=== PATIENT | female | born 1955 | race Caucasian/White ===

== ENCOUNTER 2016-07-18 10:21 | Inpatient (IN) | payer MEDICARE, OTHER ==
[2016-07-18] VITALS (12 sets, daily range): BP systolic 82–127; BP diastolic 47–85
[~2016-07-18] VITALS: Ht 134.6 cm; Wt 57.4 kg
[~2016-07-18 10:21] MED LIST: ACET-704 PO; ALEN70TA5 PO; AMIO200T2 PO; BUDE10.2 IH; CYCL10TA2 PO; DIAZEPAM10 MG PO; DIFL500T PO; FURO40TA4 PO; HYDR200T5 PO; LEVO112T4 PO; METH2.5T PO; OMEP40CA5 PO; OXYC1TAB7 PO; POTA20TA12 PO; PRED1TAB3 PO; PROAIR HFA8.5 GM IH; SULF500T7 PO; TIOT18CA IH
--- NOTE | 2016-07-18 10:44 | PHYS DOC ---
Past Medical History Past Medical History: A-Fib, Anxiety, Arthritis, Asthma, COPD, GERD, Hypothyroid Additional Past Medical Histor: Breast Cancer Past Surgical History: Cancer Surgery, Cholecystectomy, Hip Replacement, Knee Replacement Additional Past Surgical Histo: NECK SGRY Alcohol Use: None Drug Use: None Adult General Chief Complaint Chief Complaint: SHORTNESS OF BREATH HPI HPI Patient is a pleasant 60-year-old female with a history of COPD on chronic oxygen therapy at 2 L daily by nasal cannula was with history of hypertension, juvenile rheumatoid arthritis, chronic atrial fibrillation, hypothyroidism, depression, who lives at home alone but is monitored by her basis she presents with shortness of breath and worsening productive cough for last 2 weeks. She's been seen by her primary care doctor twice this week and placed on azithromycin 2 courses with minimal improvement of her symptoms. She's had increased work of breathing increased shortness of breath without chest pain or edema of the lower extremities last 2 weeks. Family denies fever but hasincreased congestion and productive cough. Patient is no change in medications she cannot sleep flat at night secondary to orthopnea as well as neck fusion. Patient denies any recent sick contacts Review of Systems Review of Systems Constitutional: Subjective fevers and chills increased work of breathing fatigue Eyes: Denies change in visual acuity, redness, or eye pain [] HENT: Noted congestion [] Respiratory: Increased productive cough and shortness of breath or difficulty or exercise tolerance Cardiovascular: No additional information not addressed in HPI [] GI: Denies abdominal pain, nausea, vomiting, bloody stools or diarrhea [] : Denies dysuria or hematuria [] Musculoskeletal: Denies back pain or joint pain [] Integument: Peripheral swelling noted contusions noted lower extremities Neurologic: Denies headache, focal weakness or sensory changes [] Endocrine: Denies polyuria or polydipsia [] Current Medications Current Medications Current Medications Medications (Trade) Dose Ordered Sig/Sarwat Start Time Stop Time Status Last Admin Dose Admin Albuterol Sulfate (Ventolin Neb Soln) 2.5 mg 1X ONCE 07/18/16 11:00 07/18/16 11:01 DC Albuterol/ Ipratropium (Duoneb) 3 ml 1X ONCE 07/18/16 11:00 07/18/16 11:01 DC Levofloxacin/ Dextrose 150 ml @ 100 mls/hr 1X ONCE 07/18/16 11:45 07/18/16 13:14 Methylprednisolone Sodium Succinate (Solu-Medrol 125mg Vial) 125 mg 1X ONCE 07/18/16 11:00 07/18/16 11:01 DC 07/18/16 10:46 125 MG Sodium Chloride (Normal Saline Flush) 10 ml QSHIFT PRN 07/18/16 10:45 07/18/16 10:48 10 ML Allergies Allergies Allergies Coded Allergies Type Severity Reaction Last Updated Verified Penicillins Allergy Intermediate Hives 12/04/13 Yes morphine Allergy Intermediate 12/04/13 Yes Physical Exam Physical Exam Vital signs noted hypoxic tachycardic, tachypneic patient is hypertensive. Constitutional: Patient is pale and cachectic in appearance she is on 2 L nasal cannula is satting at 8183% patient is sitting up in a recumbent position no obvious diaphoresis able to speak in 3-5 word sentences. HENT: Normocephalic, atraumatic, bilateral external ears normal, moist mucous membranes Eyes: PERRLA, EOMI, conjunctiva normal, no discharge. [] Neck: Normal range of motion, no tenderness, supple, no JVD no stridor noted Cardiovascular: Tachycardic irregular irregular rhythm Lungs & Thorax: wheezing in all lung daigle with coarse rhonchi at the left and right bases decreased left breath sounds in the right base. Abdomen: Bowel sounds normal, soft, no tenderness, no masses, no pulsatile masses. [] Skin: Pale and cool with delayed cap refill Extremities: No tenderness, no cyanosis, no clubbing, ROM intact, no edema. [] Neurologic: Alert and oriented X 3, normal motor function, normal sensory function, no focal deficits noted. [] Psychologic: Affect normal, judgement normal, mood normal. [] Current Patient Data Vital Signs Vital Signs Date Time Temp Pulse Resp B/P (MAP) Pulse Ox O2 Delivery O2 Flow Rate FiO2 07/18/16 11:30 92 20 103/53 (70) 95 BiPAP/CPAP 07/18/16 10:23 98.7 2.0 98.7 Lab Values Laboratory Tests Test 07/18/16 10:31 07/18/16 10:39 07/18/16 10:45 07/18/16 10:47 Urine Collection Type Unknown Urine Color Yellow Urine Clarity Clear Urine pH 5.5 Urine Specific Napoleon 1.010 Urine Protein Negative mg/dL (NEG-TRACE) Urine Glucose (UA) Negative mg/dL (NEG) Urine Ketones (Stick) Negative mg/dL (NEG) Urine Blood Negative (NEG) Urine Nitrite Negative (NEG) Urine Bilirubin Negative (NEG) Urine Urobilinogen Dipstick 0.2 mg/dL (0.2 mg/dL) Urine Leukocyte Esterase Negative (NEG) Urine RBC 0 /HPF (0-2) Urine WBC Occ /HPF (0-4) Urine Squamous Epithelial Cells Mod /LPF Urine Transitional Epithelial Cells Occ /LPF Urine Bacteria Few /HPF (0-FEW) Urine Hyaline Casts Occasional /HPF White Blood Count 7.4 x10^3/uL (4.0-11.0) Red Blood Count 2.65 x10^6/uL (3.50-5.40) L Hemoglobin 9.3 g/dL (12.0-15.5) L Hematocrit 28.8 % (36.0-47.0) L Mean Corpuscular Volume 109 fL (79-100) H Mean Corpuscular Hemoglobin 35 pg (25-35) Mean Corpuscular Hemoglobin Concent 32 g/dL (31-37) Red Cell Distribution Width 21.0 % (11.5-14.5) H Platelet Count 177 x10^3/uL (140-400) Neutrophils (%) (Auto) 77 % (31-73) H Lymphocytes (%) (Auto) 12 % (24-48) L Monocytes (%) (Auto) 9 % (0-9) Eosinophils (%) (Auto) 2 % (0-3) Basophils (%) (Auto) 1 % (0-3) Neutrophils # (Auto) 5.7 x10^3uL (1.8-7.7) Lymphocytes # (Auto) 0.9 x10^3/uL (1.0-4.8) L Monocytes # (Auto) 0.7 x10^3/uL (0.0-1.1) Eosinophils # (Auto) 0.1 x10^3/uL (0.0-0.7) Basophils # (Auto) 0.1 x10^3/uL (0.0-0.2) Platelet Estimate Pending Sodium Level 144 mmol/L (136-145) Potassium Level 2.6 mmol/L (3.5-5.1) *L Chloride Level 92 mmol/L (98-107) L Carbon Dioxide Level > 45 mmol/L (21-32) H Anion Gap (6-14) Blood Urea Nitrogen 12 mg/dL (7-20) Creatinine 0.8 mg/dL (0.6-1.0) Estimated GFR (Cockcroft-Gault) 72.9 BUN/Creatinine Ratio 15 (6-20) Glucose Level 149 mg/dL (70-99) H Lactic Acid Level 1.2 mmol/L (0.4-2.0) Calcium Level 9.7 mg/dL (8.5-10.1) Magnesium Level 1.3 mg/dL (1.8-2.4) L Total Bilirubin 0.5 mg/dL (0.2-1.0) Aspartate Amino Transferase (AST) 30 U/L (15-37) Alanine Aminotransferase (ALT) 19 U/L (14-59) Alkaline Phosphatase 76 U/L (46-116) Creatine Kinase 53 U/L (26-192) Creatine Kinase MB (Mass) 2.7 ng/mL (0.0-3.6) Creatine Kinase MB Relative Index % (0-4) Troponin I Quantitative 0.033 ng/mL (0.000-0.055) OU-Pht-M-Type Natriuretic Peptide 936 pg/mL (0-124) H Total Protein 6.9 g/dL (6.4-8.2) Albumin 3.1 g/dL (3.4-5.0) L Albumin/Globulin Ratio 0.8 (1.0-1.7) L Thyroid Stimulating Hormone (TSH) 0.868 uIU/mL (0.358-3.74) Influenza Type A Antigen Negative (NEGATIVE) Influenza Type B Antigen Negative (NEGATIVE) O2 Saturation 81 % (92-99) L Arterial Blood pH 7.28 (7.35-7.45) L Arterial Blood pCO2 at Patient Temp 119 mmHg (35-46) *H Arterial Blood pO2 at Patient Temp 53 mmHg (65-108) L Arterial Blood HCO3 55 mmol/L (21-28) H Arterial Blood Base Excess 24 mmol/L (-3-3) H FiO2 36 Laboratory Tests 07/18/16 10:39 Laboratory Tests 07/18/16 10:39 EKG EKG [] Radiology/Procedures Radiology/Procedures [] Signed PATIENT: BEATRIZ ESPARZA ACCOUNT: [id number] : 1955 LOCATION: ER AGE: 60 SEX: F EXAM STATUS: PRE ER ORD. PHYSICIAN: BETHANY BEASLEY MD REASON: cough sob PROCEDURE: PORTABLE CHEST 1V Indication: Cough and shortness of breath. Time of exam 10:45 AM Correlation is made with prior study 01/10/2014. The heart is enlarged. The lungs are clear. No infiltrate or failure is detected. No effusion or pneumothorax is seen. Severe degenerative changes involving bilateral shoulders are noted. Impression: Cardiomegaly. No acute cardiopulmonary process is detected. DICTATED and SIGNED BY: VINCENT LUONG MD DATE: 07/18/16 1049 CC: BETHANY BEASLEY MD; AMAIRANI GAUTHIER MD ~ Course & Med Decision Making Course & Med Decision Making Pertinent Labs and Imaging studies reviewed. (See chart for details) [] Agents vital signs are concerning she is tachycardic at 1 12/10/08 she is mildly hypoxic is biting into [place] skinless although she is mentating okay at 81%. Her blood pressure is within normal limits and her respiratory rate is increased greater than 20 she presents with possible COPD exacerbation with localized infiltrate pneumonia possibly multilobar or even congestive heart failure. She will be treated with a course of BiPAP with blood and oxygen via nasal cannula swash getting neb treatments and Solu-Medrol. We will get blood cultures and sputum cultures and lactic acid level fluids will be given in anticipation that the patient is on Sirs based on her vital signs possible sepsis base and a possible pneumonia. She'll ABG pH 7.28 PCO2 119 PaO2 52 bicarbonate 54.9 base excess is 24.2. His ABG demonstrates respiratory insufficiency with retained CO2 but commentation noted an increased bicarbonate levels. Given patient's respiratory distress patient been placed on BiPAP immediately is improved her symptoms as well as her breath sounds. Patient was given in-line nebs. Blood cultures been completed lactic acid is been drawn fluids are being given at this point in time. Patient likely represents an exacerbation of COPD and not congestive heart failure. EKG timed 10:30 AM 07/18/2016 demonstrates atrial fibrillation tachycardia [address] segment or T-wave changes consistent with acute coronary ischemia she has an old Q-wave in V1 and V2 which might represent an old anterior infarct. EKG will be compared to old EKGs in the past. At this juncture patiently Sirs criteria antibiotics were given to treat respiratory source of infection and she'll be admitted to the ICU. ` Patient has marked improvement on BiPAP machine repeat ABG is ordered because in approximately 30 minutes. Patient given a fluid bolus she's "antibodies to include IV Levaquin 750 mg family and I discussed need for admission as well as disposition to the ICU. Patient hospice at 11:45 AM for admission. She sats are now in the mid 90s upper 90s patient's color is improved from now romero color to a pinkish color she feels markedly better is able to communicate more rigorously. Patient admitted to Dr. HOLBROOK. Patient stable admitted to the ICU in guarded condition. Impression: COPD exacerbation, hypoxia, hype hypercarbia hypo-kalemia. Critical care time I spent approximately 45-50 minutes working and engaged directly in the patient care providing critical care evaluation this includes but not limited to time spent engaged in work directly related to the individual patients care. I spent time at the bedside, reviewing test results, discussing the case with staff, documenting the medical record and time spent with EMS discussing specific treatment issues when the patient presented and during his evaluation. Dragon Disclaimer Dragon Disclaimer This electronic medical record was generated, in whole or in part, using a voice recognition dictation system. Departure Departure Impression: Primary Impression: COPD (chronic obstructive pulmonary disease) Additional Impression: Acidosis Disposition: ADMITTED INPATIENT Admitting Physician: Yunior Ervin Condition: GUARDED Referrals: AMAIRANI GAUTHIER MD (PCP) Problem Qualifiers BETHANY BEASLEY MD July 18, 2016 10:44
[2016-07-18] MEDS ORDERED: 0.9 % SODIUM CHLORIDE 10 ML DISP.SYRIN. IV PRN (10:45)
[2016-07-18 10:52] LABS: BILIRUBIN,URINE NEGATIVE (NEG); GLUCOSE,URINE NEGATIVE (NEG); NITRITE,URINE NEGATIVE (NEG); PH,URINE 5.5; PROTEIN,URINE NEGATIVE (NEG-TRACE); UROBILINOGEN,URINE 0.2 mg/dL (0.2 mg/dL)
--- NOTE | 2016-07-18 10:52 | RAD ---
Indication: Cough and shortness of breath. Time of exam 10:45 AM Correlation is made with prior study 01/10/2014. The heart is enlarged. The lungs are clear. No infiltrate or failure is detected. No effusion or pneumothorax is seen. Severe degenerative changes involving bilateral shoulders are noted. Impression: Cardiomegaly. No acute cardiopulmonary process is detected.
[2016-07-18 10:55] LABS: BASO # 0.1 x10^3/uL (0.0-0.2); BASO % 1 % (0-3); EOS % 2 % (0-3); HEMATOCRIT 28.8 % (36.0-47.0); HEMOGLOBIN 9.3 g/dL (12.0-15.5); LYMPH # 0.9 x10^3/uL (1.0-4.8); LYMPH % 12 % (24-48); MEAN CORPUSCULAR HEMOGLOBIN 35 pg (25-35); MEAN CORPUSCULAR HGB CONC 32 g/dL (31-37); MEAN CORPUSCULAR VOLUME 109 fL (79-100); MONO % 9 % (0-9); NEUT % 77 % (31-73); PLATELET COUNT 177 x10^3/uL (140-400); RED BLOOD COUNT 2.65 x10^6/uL (3.50-5.40); WHITE BLOOD COUNT 7.4 x10^3/uL (4.0-11.0)
[2016-07-18] MEDS ORDERED: IPRATRPIUM/ALBUTEROL 0.5/2.5MG 3 ML NEBU. NEB ONE (11:00)
[2016-07-18] MEDS ORDERED: ALBUTEROL SULFATE 2.5 MG/3 ML NEBU. NEB ONE (11:00)
[2016-07-18] MEDS ORDERED: methylPREDNISolone SOD SUCC PF 125 MG/2 ML VIAL. IV ONE (11:00)
[2016-07-18] MEDS ORDERED: IV NORMAL SALINE 1000ML BAG 1,000 ML IV SCH (11:00)
[2016-07-18 11:01] LABS: BACTERIA,URINE FEW /HPF (0-FEW); RBC,URINE 0 /HPF (0-2); SQUAMOUS EPITHELIAL CELL,UR MOD /LPF; WBC,URINE OCC /HPF (0-4)
--- NOTE | 2016-07-18 11:02 | EKG ---
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
[2016-07-18 11:19] LABS: ALBUMIN 3.1 g/dL (3.4-5.0); ALBUMIN/GLOBULIN RATIO 0.8 (1.0-1.7); ALK PHOS 76 U/L (46-116); ALT (SGPT) 19 U/L (14-59); AST (SGOT) 30 U/L (15-37); BLOOD UREA NITROGEN 12 mg/dL (7-20); BUN/CREATININE RATIO 15 (6-20); CALCIUM 9.7 mg/dL (8.5-10.1); CHLORIDE 92 mmol/L (98-107); CREATINE KINASE 53 U/L (26-192); CREATININE 0.8 mg/dL (0.6-1.0); GFR 72.9; GLUCOSE 149 mg/dL (70-99); MAGNESIUM 1.3 mg/dL (1.8-2.4); SODIUM 144 mmol/L (136-145); TOTAL BILIRUBIN 0.5 mg/dL (0.2-1.0); TOTAL PROTEIN 6.9 g/dL (6.4-8.2)
[2016-07-18 11:24] LABS: OBC FLU VALID
[2016-07-18 11:25] LABS: CKMB MASS 2.7 ng/mL (0.0-3.6); CREATINE KINASE 53 U/L (26-192)
[2016-07-18 11:27] LABS: CARBON DIOXIDE > 45 mmol/L (21-32); POTASSIUM 2.6 mmol/L (3.5-5.1)
[2016-07-18 11:58] LABS: PH ABG 7.28 (7.35-7.45)
[2016-07-18 11:59] LABS: FIO2 ABG 36; HCO3 ABG 55 mmol/L (21-28); PCO2 ABG 119 mmHg (35-46); PO2 ABG 53 mmHg (65-108); SAT O2 ABG 81 % (92-99)
[2016-07-18 12:00] LABS: PLT ESTIMATE ADEQUATE (ADEQUATE)
[2016-07-18 12:01] LABS: ANISOCYTOSIS MOD; POLYCHROMASIA PRESENT
--- NOTE | 2016-07-18 12:16 | ACF ---
Admission Forms Criteria COPD Clinical Indications for Admission to Inpatient Care (Place 'X' for any and all applicable criteria): Admission is indicated for ANY ONE of the following (1)(2)(3): [X]I. Acute exacerbation by high-risk comorbidity (e.g., pneumonia, dysrhythmia, heart failure, pleural effusion, pneumothorax) or severe underlying COPD (e.g., steroid dependent) [X]II. Inpatient admission required rather than observation care (see Chronic Obstructive Pulmonary Disease: Observation Care) because of ANY ONE of the following: [ ]a) New or pre-existing signs or symptoms of COPD (eg, dyspnea or Tachypnea at rest or with minimal activity) that persist despite outpatient and observation care treatment [ ]b) New-onset hypoxemia (room air SaO2 less than 90%, PO2 less than 60 mm Hg (8.0 kPa)) that persists despite outpatient and observation care treatment [ ]c) Worsening of pre-existing hypoxemia (eg, new or increased requirement for supplemental oxygen to maintain oxygenation at baseline level) that persists despite outpatient and observation care treatment, with oxygen treatment needs performable only in acute inpatient setting [ ]d) Hypercarbia (PCO2 greater than 40 mm Hg (5.3 kPa))-induced respiratory acidosis (pH less than 7.35) that persists despite outpatient and observation care treatment [X]e) Supplemental oxygen or respiratory treatments for over 24 hours that are performable only in acute inpatient setting [ ]f) Chest tube placement with active evacuation (e.g., suction, drainage) (5) [ ]g) Other condition, treatment or monitoring requiring inpatient admission [ ]III. Planned invasive surgical or diagnostic procedures requiring acute- care hospitalization [ ]IV. Acute respiratory failure (e.g., uncompensated hypercarbia, severe hypoxemia) [ ]V. Severe comorbid condition (e.g., severe steroid myopathy, acute vertebral fracture) that has acutely worsened pulmonary function [ ]. Confusion state, lethargy, obtundation, stupor or coma Extended stay beyond goal length of stay may be needed for (31)(32): [ ]a ) Respiratory Failure. [ ]b) Severe or persisting hypoxemia or hypercarbia [ ]c) Severe or persistent dyspnea [ ]d) Comorbidities (e.g. chronic heart failure, atrial fibrillation with rapid response, pneumonia) [ ]e) Malnutrition The original [facility] content created by [facility] has been revised. The portions of the content which have been revised are identified through the use of italic text or in bold, and [facility] has neither reviewed nor approved the modified material. All other unmodified content is copyright [facility]. Please see references footnoted in the original [facility] edition 2016 Admission Criteria Met?: Yes ILANA VASQUEZ July 18, 2016 12:16
[2016-07-18 12:33] LABS: PH COOX 7.33 (7.35-7.45)
[2016-07-18 12:34] LABS: BASE EXCESS COOX 21 mmol/L (-3-3); FIO2 COOX 50; HCO3 COOX 50 mmol/L (21-28); PCO2 COOX 96 mmHg (35-46); PO2 COOX 77 mmHg (65-108); SAT O2 COOX 94 % (92-99)
--- NOTE | 2016-07-18 13:05 | PDOC ---
Provider Note Provider Note DICTATED ELO SANCHEZ MD July 18, 2016 13:05
[2016-07-18] MEDS: POTASSIUM CHLORIDE 10MEQ 100 ML IV SCH ×7 (13:30→23:48)
--- NOTE | 2016-07-18 14:12 | CONS ---
DATE OF CONSULTATION: 07/18/2016 ATTENDING PHYSICIAN: Yunior Ervin M.D. REASON FOR CONSULTATION: Respiratory failure. HISTORY OF PRESENT ILLNESS: The patient is a 60-year-old female who has a history of chronic respiratory failure on home oxygen 24 hours at 2 liters and history of chronic obstructive airway disease. She also has rheumatoid arthritis and has been on immunosuppressive agents. In addition, she takes chronic narcotics and benzodiazepines. She was brought in to the hospital by her daughter. The patient lives by herself. She was complaining of increasing shortness of breath and also some weakness and lethargy. The patient was noted to have a highly abnormal arterial blood gases on arrival, which showed a pH of 7.28, pCO2 of 119 and a pCO2 of 53. This was obtained on 36% FiO2. She was then placed on BiPAP and a subsequent blood gas showed a pH of 7.33, pCO2 of 96 and a pO2 of 77 on 50% FiO2. She is arousable. She is following commands. She wants to be full code as reported to me by her daughter. No headaches. No nausea or vomiting. No diarrhea. She did have some recent cold symptoms. Currently, the BiPAP settings have been adjusted by me. I have increased her iPAP and respiratory rate. Her chest x-ray was reviewed. No definite infiltrates or consolidation seen. PAST MEDICAL HISTORY: History of chronic respiratory failure; history of COPD, suspect severe; history of rheumatoid arthritis; history of immunosuppression, on chronic steroids and also on methotrexate; history of chronic narcotic use and benzo use; history of breast cancer. PAST SURGICAL HISTORY: Include cholecystectomy, hip replacement and knee replacement and neck surgery. ALLERGIES: PENICILLIN AND MORPHINE. REVIEW OF SYSTEMS: Twelve-point system obtained. Pertinent positives discussed in my history of present illness, otherwise noncontributory. All systems that were negative were reviewed as well. MEDICATIONS: Listed in the ER as well as home medications were reviewed as well. SOCIAL HISTORY: Smoked for 35 years before quitting 5 years ago. PHYSICAL EXAMINATION: GENERAL: She is arousable, on BiPAP. VITAL SIGNS: Blood pressure 105/49, afebrile, pulse ox 94% on current FiO2 50%. HEENT: Sclerae nonicteric. NECK: Supple. LUNGS: Diminished breath sounds. CARDIOVASCULAR: Regular rate. ABDOMEN: Soft, obese. EXTREMITIES: Bilateral pitting edema. LABORATORY DATA: Reviewed. ABGs as discussed in my history of present illness. Influenza screen is negative. Potassium 2.6, sodium 144, bicarbonate more than 45. BUN and creatinine are normal. Albumin is 3.1. White cell count 7.4, hemoglobin 9.3 and platelets are 177. IMPRESSION: 1. Acute on chronic hypoxic and hypercapnic respiratory failure. This has multifactorial etiologies and includes combination of acute bronchitis, hypoventilation from the use of benzodiazepines and narcotics and possible cor pulmonale. She does have lower extremity edema. 2. Underlying severe chronic obstructive pulmonary disease with chronic respiratory failure, now with acute respiratory failure. 3. History of rheumatoid arthritis, on chronic steroids and methotrexate. 4. Suspected acute bronchitis. 5. Chronic benzodiazepine and narcotic use. She uses oxycodone and diazepam regularly, which may have contributed to her encephalopathy. 6. Acute encephalopathy related to medication effect and also hypercapnia. RECOMMENDATIONS: 1. Continue with present BiPAP. ABGs show improvement. We will continue BiPAP until pH normalizes. I made necessary adjustments on the BiPAP settings. 2. Follow ABGs. 3. Agree with empiric antibiotic. 4. If blood pressure tolerates, we will do mild diuresis. 5. Minimize the use of home narcotics and benzodiazepines. 6. Continue her steroids and methotrexate for rheumatoid arthritis. 7. DVT prophylaxis. 8. Discussed with the ER physician and also the patient's daughter. The patient wants to remain a full code. Critical care time 38 minutes. ELO SANCHEZ MD DR: CORNELIUS/mariah JOB#: [id number] / [id number] YOANNA
--- NOTE | 2016-07-18 15:16 | PDOC1 ---
History and Physical Past Medical History Cardiovascular: AFIB, CHF, Hyperlipidemia Pulmonary: COPD, Pneumonia CENTRAL NERVOUS SYSTEM: Other GI: GERD Heme/Onc: B12 deficiency, Cancer Psych: Anxiety Rheumatologic: Rheumatoid arthritis Infectious disease: Other Renal/: Other Endocrine: Osteoporosis Past Surgical History Past Surgical History: Cholecystectomy, Mastectomy, Total hip replacement, Other Social History ALCOHOL: none Drugs: None Current Problem List Problem List Problems Medical Problems: (1) Acidosis Status: Acute (2) COPD (chronic obstructive pulmonary disease) Status: Acute Current Medications Current Medications Current Medications Medications (Trade) Dose Ordered Sig/Sarwat Start Time Stop Time Status Last Admin Dose Admin Albuterol Sulfate (Ventolin Neb Soln) 2.5 mg 1X ONCE 07/18/16 11:00 07/18/16 11:01 DC Albuterol/ Ipratropium (Duoneb) 3 ml RTQID 07/18/16 16:00 Enoxaparin Sodium (Lovenox 40mg Syringe) 40 mg Q24H 07/18/16 14:00 Levofloxacin/ Dextrose 100 ml @ 100 mls/hr Q24H 07/19/16 09:00 Methylprednisolone Sodium Succinate (Solu-Medrol 125mg Vial) 125 mg 1X ONCE 07/18/16 11:00 07/18/16 11:01 DC 07/18/16 10:46 125 MG Potassium Chloride 100 ml @ 100 mls/hr Q1H 07/18/16 16:00 07/18/16 17:59 Sodium Chloride (Normal Saline Flush) 10 ml QSHIFT PRN 07/18/16 10:45 07/18/16 10:48 10 ML Allergies Allergies Allergies Coded Allergies Type Severity Reaction Last Updated Verified Penicillins Allergy Intermediate Hives 12/04/13 Yes morphine Allergy Intermediate 12/04/13 Yes ROS Review of System sob, ams, not able to obtain as pt is on BIPAP. Physical Exam Physical Exam GEN.: No apparent distress. Alert, on BIPAP HEENT: Head is normocephalic, atraumatic NECK: Supple. NO jvd LUNGS: Clear to auscultation. anterior clear. HEART: RRR, S1, S2 present. Peripheral pulses intact ABDOMEN: Soft, nontender. Positive bowel sounds. EXTREMITIES: Without any cyanosis+2 edema NEUROLOGIC: Normal speech, normal tone PSYCHIATRIC: mild confusion SKIN: dry. Vitals Vitals Vital Signs Date Time Temp Pulse Resp B/P (MAP) Pulse Ox O2 Delivery O2 Flow Rate FiO2 07/18/16 14:00 84 24 93/55 (68) 95 BiPAP/CPAP 07/18/16 13:15 97.8 97.8 07/18/16 10:45 4.0 Labs Labs Laboratory Tests Test 07/18/16 10:31 07/18/16 10:39 07/18/16 10:45 07/18/16 10:47 Urine Collection Type Unknown Urine Color Yellow Urine Clarity Clear Urine pH 5.5 Urine Specific [place] 1.010 Urine Protein Negative mg/dL (NEG-TRACE) Urine Glucose (UA) Negative mg/dL (NEG) Urine Ketones (Stick) Negative mg/dL (NEG) Urine Blood Negative (NEG) Urine Nitrite Negative (NEG) Urine Bilirubin Negative (NEG) Urine Urobilinogen Dipstick 0.2 mg/dL (0.2 mg/dL) Urine Leukocyte Esterase Negative (NEG) Urine RBC 0 /HPF (0-2) Urine WBC Occ /HPF (0-4) Urine Squamous Epithelial Cells Mod /LPF Urine Transitional Epithelial Cells Occ /LPF Urine Bacteria Few /HPF (0-FEW) Urine Hyaline Casts Occasional /HPF O2 Saturation 94 % (92-99) 81 % (92-99) Arterial Blood pH 7.33 (7.35-7.45) 7.28 (7.35-7.45) Arterial Blood pCO2 at Patient Temp 96 mmHg (35-46) 119 mmHg (35-46) Arterial Blood pO2 at Patient Temp 77 mmHg (65-108) 53 mmHg (65-108) Arterial Blood HCO3 50 mmol/L (21-28) 55 mmol/L (21-28) Arterial Blood Base Excess 21 mmol/L (-3-3) 24 mmol/L (-3-3) FiO2 50 36 White Blood Count 7.4 x10^3/uL (4.0-11.0) Red Blood Count 2.65 x10^6/uL (3.50-5.40) Hemoglobin 9.3 g/dL (12.0-15.5) Hematocrit 28.8 % (36.0-47.0) Mean Corpuscular Volume 109 fL (79-100) Mean Corpuscular Hemoglobin 35 pg (25-35) Mean Corpuscular Hemoglobin Concent 32 g/dL (31-37) Red Cell Distribution Width 21.0 % (11.5-14.5) Platelet Count 177 x10^3/uL (140-400) Neutrophils (%) (Auto) 77 % (31-73) Lymphocytes (%) (Auto) 12 % (24-48) Monocytes (%) (Auto) 9 % (0-9) Eosinophils (%) (Auto) 2 % (0-3) Basophils (%) (Auto) 1 % (0-3) Neutrophils # (Auto) 5.7 x10^3uL (1.8-7.7) Lymphocytes # (Auto) 0.9 x10^3/uL (1.0-4.8) Monocytes # (Auto) 0.7 x10^3/uL (0.0-1.1) Eosinophils # (Auto) 0.1 x10^3/uL (0.0-0.7) Basophils # (Auto) 0.1 x10^3/uL (0.0-0.2) Platelet Estimate Adequate (ADEQUATE) Polychromasia Present Basophilic Stippling Present Anisocytosis Mod Macrocytosis Slight Sodium Level 144 mmol/L (136-145) Potassium Level 2.6 mmol/L (3.5-5.1) Chloride Level 92 mmol/L (98-107) Carbon Dioxide Level > 45 mmol/L (21-32) Anion Gap (6-14) Blood Urea Nitrogen 12 mg/dL (7-20) Creatinine 0.8 mg/dL (0.6-1.0) Estimated GFR (Cockcroft-Gault) 72.9 BUN/Creatinine Ratio 15 (6-20) Glucose Level 149 mg/dL (70-99) Lactic Acid Level 1.2 mmol/L (0.4-2.0) Calcium Level 9.7 mg/dL (8.5-10.1) Magnesium Level 1.3 mg/dL (1.8-2.4) Total Bilirubin 0.5 mg/dL (0.2-1.0) Aspartate Amino Transf (AST/SGOT) 30 U/L (15-37) Alanine Aminotransferase (ALT/SGPT) 19 U/L (14-59) Alkaline Phosphatase 76 U/L (46-116) Creatine Kinase 53 U/L (26-192) Creatine Kinase MB (Mass) 2.7 ng/mL (0.0-3.6) Creatine Kinase MB Relative Index % (0-4) Troponin I Quantitative 0.033 ng/mL (0.000-0.055) NU-Kmh-P-Type Natriuretic Peptide 936 pg/mL (0-124) Total Protein 6.9 g/dL (6.4-8.2) Albumin 3.1 g/dL (3.4-5.0) Albumin/Globulin Ratio 0.8 (1.0-1.7) Thyroid Stimulating Hormone (TSH) 0.868 uIU/mL (0.358-3.74) Influenza Type A Antigen Negative (NEGATIVE) Influenza Type B Antigen Negative (NEGATIVE) Laboratory Tests Test 07/18/16 10:31 07/18/16 10:39 07/18/16 10:45 07/18/16 10:47 Urine Collection Type Unknown Urine Color Yellow Urine Clarity Clear Urine pH 5.5 Urine Specific [place] 1.010 Urine Protein Negative mg/dL (NEG-TRACE) Urine Glucose (UA) Negative mg/dL (NEG) Urine Ketones (Stick) Negative mg/dL (NEG) Urine Blood Negative (NEG) Urine Nitrite Negative (NEG) Urine Bilirubin Negative (NEG) Urine Urobilinogen Dipstick 0.2 mg/dL (0.2 mg/dL) Urine Leukocyte Esterase Negative (NEG) Urine RBC 0 /HPF (0-2) Urine WBC Occ /HPF (0-4) Urine Squamous Epithelial Cells Mod /LPF Urine Transitional Epithelial Cells Occ /LPF Urine Bacteria Few /HPF (0-FEW) Urine Hyaline Casts Occasional /HPF O2 Saturation 94 % (92-99) 81 % (92-99) Arterial Blood pH 7.33 (7.35-7.45) 7.28 (7.35-7.45) Arterial Blood pCO2 at Patient Temp 96 mmHg (35-46) 119 mmHg (35-46) Arterial Blood pO2 at Patient Temp 77 mmHg (65-108) 53 mmHg (65-108) Arterial Blood HCO3 50 mmol/L (21-28) 55 mmol/L (21-28) Arterial Blood Base Excess 21 mmol/L (-3-3) 24 mmol/L (-3-3) FiO2 50 36 White Blood Count 7.4 x10^3/uL (4.0-11.0) Red Blood Count 2.65 x10^6/uL (3.50-5.40) Hemoglobin 9.3 g/dL (12.0-15.5) Hematocrit 28.8 % (36.0-47.0) Mean Corpuscular Volume 109 fL (79-100) Mean Corpuscular Hemoglobin 35 pg (25-35) Mean Corpuscular Hemoglobin Concent 32 g/dL (31-37) Red Cell Distribution Width 21.0 % (11.5-14.5) Platelet Count 177 x10^3/uL (140-400) Neutrophils (%) (Auto) 77 % (31-73) Lymphocytes (%) (Auto) 12 % (24-48) Monocytes (%) (Auto) 9 % (0-9) Eosinophils (%) (Auto) 2 % (0-3) Basophils (%) (Auto) 1 % (0-3) Neutrophils # (Auto) 5.7 x10^3uL (1.8-7.7) Lymphocytes # (Auto) 0.9 x10^3/uL (1.0-4.8) Monocytes # (Auto) 0.7 x10^3/uL (0.0-1.1) Eosinophils # (Auto) 0.1 x10^3/uL (0.0-0.7) Basophils # (Auto) 0.1 x10^3/uL (0.0-0.2) Platelet Estimate Adequate (ADEQUATE) Polychromasia Present Basophilic Stippling Present Anisocytosis Mod Macrocytosis Slight Sodium Level 144 mmol/L (136-145) Potassium Level 2.6 mmol/L (3.5-5.1) Chloride Level 92 mmol/L (98-107) Carbon Dioxide Level > 45 mmol/L (21-32) Anion Gap (6-14) Blood Urea Nitrogen 12 mg/dL (7-20) Creatinine 0.8 mg/dL (0.6-1.0) Estimated GFR (Cockcroft-Gault) 72.9 BUN/Creatinine Ratio 15 (6-20) Glucose Level 149 mg/dL (70-99) Lactic Acid Level 1.2 mmol/L (0.4-2.0) Calcium Level 9.7 mg/dL (8.5-10.1) Magnesium Level 1.3 mg/dL (1.8-2.4) Total Bilirubin 0.5 mg/dL (0.2-1.0) Aspartate Amino Transf (AST/SGOT) 30 U/L (15-37) Alanine Aminotransferase (ALT/SGPT) 19 U/L (14-59) Alkaline Phosphatase 76 U/L (46-116) Creatine Kinase 53 U/L (26-192) Creatine Kinase MB (Mass) 2.7 ng/mL (0.0-3.6) Creatine Kinase MB Relative Index % (0-4) Troponin I Quantitative 0.033 ng/mL (0.000-0.055) KW-Diy-U-Type Natriuretic Peptide 936 pg/mL (0-124) Total Protein 6.9 g/dL (6.4-8.2) Albumin 3.1 g/dL (3.4-5.0) Albumin/Globulin Ratio 0.8 (1.0-1.7) Thyroid Stimulating Hormone (TSH) 0.868 uIU/mL (0.358-3.74) Influenza Type A Antigen Negative (NEGATIVE) Influenza Type B Antigen Negative (NEGATIVE) VTE Prophylaxis Ordered VTE Prophylaxis Devices: No VTE Pharmacological Prophylaxi: No CATHERINE CABRAL MD July 18, 2016 15:16
[2016-07-18 15:21] LABS: HCO3 ABG 54 mmol/L (21-28); PO2 ABG 84 mmHg (65-108); SAT O2 ABG 95 % (92-99)
[2016-07-18] MEDS ORDERED: hydrALAZINE 20 MG/ML VIAL. IVP PRN (15:30)
[2016-07-18] MEDS: ENOXAPARIN 40 MG/0.4 ML SYRINGE. SQ SCH (15:52)
[2016-07-18] MEDS ORDERED: POTASSIUM CHLORIDE 10MEQ 100 ML IV SCH (16:00)
--- NOTE | 2016-07-18 16:46 | CARD ---
APPROVED REPORT EXAM: Two-dimensional and M-mode echocardiogram with Doppler and color Doppler. Other Information Quality : Average Rhythm : NSR INDICATION Dyspnea Peripheral Edema R/O cor pulmonale 2D DIMENSIONS RVDd2.2 (2.9-3.5cm)Left Atrium(2D)2.3 (1.6-4.0cm) IVSd1.0 (0.7-1.1cm)Aortic Root(2D)2.5 (2.0-3.7cm) LVDd4.5 (3.9-5.9cm)LVOT Diameter2.0 (1.8-2.4cm) PWd1.0 (0.7-1.1cm)LVDs3.3 (2.5-4.0cm) FS (%) 27.9 %SV50.6 ml LVEF(%)54.2 (>50%) Aortic Valve AoV Peak Galileo.156.9cm/sAoV VTI24.7cm AO Peak GR.9.8mmHgLVOT Peak Galileo.95.3cm/s AO Mean GR.6mmHgAVA (VMAX)1.84cm2 Mitral Valve MV E Eswrfzwj06.2cm/sMV DECEL [id number] MV A Njciynpz21.3cm/sMV OGN66qm E/A Ratio1.0MV A Mjwptiqy279ly MVA (PHT)4.05cm2 Tricuspid Valve TR P. Ddrrgwdu013yv/sRAP UYFFCDLD0jkLa TR Peak Gr.50oyKiKROR60isFs Pulmonary Vein S1 Azeifksm22.0cm/sD2 Ahkwruvy76.8cm/s PVa [id number] LEFT VENTRICLE The left ventricle is normal size. There is normal left ventricular wall thickness. Left ventricle sy stolic function is normal. The Ejection Fraction is 50-55%. There is normal LV segmental wall motion. The left ventricular diastolic function and filling is normal for age. RIGHT VENTRICLE The right ventricle is normal size. The right ventricular systolic function is normal. ATRIA The left atrium size is normal. The right atrium size is normal. The interatrial septum is intact wit h no evidence for an atrial septal defect or patent foramen ovale as noted on 2-D or Doppler imaging. AORTIC VALVE The aortic valve is normal in structure and function. The aortic valve is trileaflet. Doppler and Col or Flow revealed no significant aortic regurgitation. There is no significant aortic valvular stenosi s. MITRAL VALVE The mitral valve leaflets are thickened. There is no mitral valve stenosis. Doppler and Color Flow re vealed no mitral valve regurgitation noted. TRICUSPID VALVE The tricuspid valve is normal in structure and function. Doppler and Color Flow revealed trace tricus pid regurgitation. The PA pressure was estimated at 14 mmHg. There is no tricuspid valve stenosis. PULMONIC VALVE The pulmonic valve is not well visualized. Doppler and Color Flow revealed no pulmonic valvular regur gitation. There is no pulmonic valvular stenosis. GREAT VESSELS The aortic root is normal in size. Normal pulmonary venous flow (Doppler). The IVC is normal in size and collapses >50% with inspiration. PERICARDIAL EFFUSION There is no evidence of significant pericardial effusion. Critical Notification Critical Value: No <Conclusion> Left ventricle systolic function is normal. The Ejection Fraction is 50-55%. There is normal LV segmental wall motion.
[2016-07-18] MEDS: IPRATRPIUM/ALBUTEROL 0.5/2.5MG 3 ML NEBU. NEB SCH ×2 (17:04→19:22)
[2016-07-18 18:42] LABS: HCO3 ABG 47 mmol/L (21-28); PH ABG 7.39 (7.35-7.45); PO2 ABG 57 mmHg (65-108); SAT O2 ABG 88 % (92-99)
[2016-07-18 18:45] LABS: FIO2 ABG 35; PCO2 ABG 78 mmHg (35-46)
[2016-07-18 18:46] LABS: PCO2 ABG 113 mmHg (35-46)
[2016-07-18 18:47] LABS: FIO2 ABG 50
--- NOTE | 2016-07-18 19:10 | HP ---
ADMIT DATE: 07/18/2016 CHIEF COMPLAINT: Respiratory failure, short of breath. HISTORY OF PRESENT ILLNESS: A 60-year-old female patient, who was brought to the hospital by her daughter for shortness of breath, altered mental status, weakness, and lethargy. Reportedly, the patient was on home oxygen 2 liters for chronic respiratory failure and COPD, and at the time of her arrival, the patient's initial ABG showed pCO2 of 96 and pH is 7.33 and she was requiring BiPAP. Also, she was on narcotics and benzodiazepines at home, which could be contributing to her altered mental status and worsening respiratory status. At the time of my examination, the patient was seen in the Critical Care Unit and symptoms are getting better. She is alert, able to answer questions; however, still on BiPAP. PAST MEDICAL HISTORY: COPD, chronic respiratory failure, rheumatoid arthritis, immunosuppression, chronic steroids, methotrexate, narcotic, and benzodiazepine use, questionable AFib, and questionable CHF. PAST SURGICAL HISTORY: Cholecystectomy, mastectomy. PERSONAL HISTORY: No active smoking, no alcohol, and no substance abuse. REVIEW OF SYSTEMS: Not able to completely obtain due to her acute illness. Please see my HPI. PHYSICAL EXAMINATION: Please see my electronic H and P. LABORATORY DATA: ABGs: pH is 7.3, pCO2 of 96, pO2 is 77, base excess 21, FiO2 50%. Influenza A and B are negative. CBC: WBC is 7.4, hemoglobin is 9.3, and MCV is 109. Chemistry: Sodium 144, potassium 2.6, carbon dioxide 95, creatinine 0.8, and troponin 0.33. IMAGING STUDIES: Chest x-ray: Cardiomegaly. ASSESSMENT AND PLAN: 1. Skqme-me-eobzpjk hypoxemic-hypercapnic respiratory failure. 2. Chronic obstructive pulmonary disease, chronic. 3. History of rheumatoid arthritis with questionable atrial fibrillation. 4. Altered mental status, likely due to medication-related - narcotics and benzodiazepine. 5. Respiratory failure. PLAN: 1. The patient has been admitted to critical care unit and currently, she is on BiPAP and clinically improving. Repeat ABGs, and Pulmonology has been consulted for further recommendations. Already seen in the ER. 2. Limit narcotics and benzodiazepines. 3. Home medication list reviewed. Discussed with the family member/pharmacy. At this moment, I do not have the medications list. 4. Continue current antibiotics, Levaquin. 5. Potassium has been replaced. 6. Periodic nebulizations or DuoNebs. 7. Echocardiogram has been ordered for ruling out cor pulmonale. 8. If the patient's symptoms improve, we will move ahead to step-down unit in the a.m. CATHERINE CABRAL MD DR: MEY/mariah JOB#: [id number] / [id number] [place]
[2016-07-18] MEDS ORDERED: oxyCODONE/APAP 5/325 1 TAB TABLET PO ONE (21:00)
[2016-07-18] MEDS: HYDROXYCHLOROQUINE 200 MG TABLET PO SCH (21:22)
[2016-07-18] MEDS ORDERED: LEFLUNOMIDE20 MG PO (22:27)
[2016-07-18] MEDS ORDERED: VENTOLIN HFA18 GM INH (22:27)
[2016-07-18] MEDS ORDERED: CETI10TA22 PO (22:27)
[2016-07-18] MEDS ORDERED: FOLI1TAB16 PO (22:27)
[2016-07-18] MEDS ORDERED: FURO-68 PO (22:27)
[2016-07-18] MEDS ORDERED: METO25TA9 PO (22:27)
[2016-07-18] MEDS ORDERED: PROM6.25 PO (22:27)
[2016-07-18] MEDS ORDERED: FLUT16SP NS (22:27)
[2016-07-18] MEDS ORDERED: ATOR20TA PO (22:27)
[2016-07-19] VITALS (21 sets, daily range): BP systolic 74–183; BP diastolic 44–74
[2016-07-19] MEDS: POTASSIUM CHLORIDE 10MEQ 100 ML IV SCH (01:32)
[2016-07-19] MEDS: LEVOTHYROXINE 112 MCG TABLET PO SCH (06:44)
[2016-07-19] MEDS ORDERED: ALBUTEROL SULFATE 2.5 MG/3 ML NEBU. NEB SCH (08:00)
[2016-07-19] MEDS: IPRATRPIUM/ALBUTEROL 0.5/2.5MG 3 ML NEBU. NEB SCH ×4 (08:15→20:30)
[2016-07-19 08:20] LABS: HCO3 ABG 39 mmol/L (21-28); PH ABG 7.33 (7.35-7.45); PO2 ABG 73 mmHg (65-108); SAT O2 ABG 92 % (92-99)
[2016-07-19 08:23] LABS: FIO2 ABG 35; PCO2 ABG 76 mmHg (35-46)
[2016-07-19] MEDS: FLUTICASONE 50MCG/NASAL SPRAY 16GM BOTTLE. NS SCH (09:00)
[2016-07-19] MEDS ORDERED: NON FORMULARY ITEM (Albuterol Sulfate (Ventolin Hfa Inhaler) 2 PUFF) INH SCH (09:00)
[2016-07-19] MEDS: METOPROLOL SUCC 24HR ER 25 MG TAB.ER.24H. PO SCH (09:00)
[2016-07-19] MEDS: LEFLUNOMIDE 10 MG TABLET. PO SCH (09:28)
[2016-07-19] MEDS: sulfaSALAzine 500 MG TABLET PO SCH ×2 (09:28→21:30)
[2016-07-19] MEDS: SALSALATE 750 MG PO SCH ×2 (09:28→21:30)
[2016-07-19] MEDS: FUROSEMIDE 40 MG TABLET. PO SCH (09:28)
[2016-07-19] MEDS: FOLIC ACID 1 MG TABLET. PO SCH (09:29)
[2016-07-19] MEDS: HYDROXYCHLOROQUINE 200 MG TABLET PO SCH ×2 (09:29→21:30)
[2016-07-19] MEDS: CETIRIZINE HCL 10 MG TABLET. PO SCH (09:29)
[2016-07-19] MEDS: predniSONE 1 MG TABLET PO SCH ×3 (09:43→21:30)
[2016-07-19 10:11] LABS: BASO % 0 % (0-3); EOS % 0 % (0-3); HEMATOCRIT 28.8 % (36.0-47.0); HEMOGLOBIN 9.2 g/dL (12.0-15.5); LYMPH # 1.8 x10^3/uL (1.0-4.8); LYMPH % 20 % (24-48); MEAN CORPUSCULAR HEMOGLOBIN 36 pg (25-35); MEAN CORPUSCULAR HGB CONC 32 g/dL (31-37); MONO % 11 % (0-9); NEUT % 70 % (31-73); PLATELET COUNT 173 x10^3/uL (140-400); RED BLOOD COUNT 2.59 x10^6/uL (3.50-5.40); RED CELL DISTRIBUTION WIDTH 22.1 % (11.5-14.5)
[2016-07-19 10:12] LABS: CALCIUM 9.7 mg/dL (8.5-10.1); CREATININE 0.9 mg/dL (0.6-1.0); GFR 63.7
[2016-07-19 10:16] LABS: MEAN CORPUSCULAR VOLUME 109 fL (79-100)
--- NOTE | 2016-07-19 10:21 | PDOC ---
PULMONARY PROGRESS NOTES Subjective on BIPAP awake Vitals Vital Signs Date Time Temp Pulse Resp B/P (MAP) Pulse Ox O2 Delivery O2 Flow Rate FiO2 07/19/16 09:09 97 103/60 (74) 91 BiPAP/CPAP 07/19/16 08:00 98.3 25 98.3 07/18/16 10:45 4.0 General: Alert, No acute distress Lungs: Other (decrease bs) Cardiovascular: S1 Abdomen: Soft Neuro Exam: Alert Extremities: Other (trace edema) Skin: Warm Labs Laboratory Tests Test 07/18/16 10:31 07/18/16 10:39 07/18/16 10:45 07/18/16 10:47 Urine Collection Type Unknown Urine Color Yellow Urine Clarity Clear Urine pH 5.5 Urine Specific [place] 1.010 Urine Protein Negative mg/dL (NEG-TRACE) Urine Glucose (UA) Negative mg/dL (NEG) Urine Ketones (Stick) Negative mg/dL (NEG) Urine Blood Negative (NEG) Urine Nitrite Negative (NEG) Urine Bilirubin Negative (NEG) Urine Urobilinogen Dipstick 0.2 mg/dL (0.2 mg/dL) Urine Leukocyte Esterase Negative (NEG) Urine RBC 0 /HPF (0-2) Urine WBC Occ /HPF (0-4) Urine Squamous Epithelial Cells Mod /LPF Urine Transitional Epithelial Cells Occ /LPF Urine Bacteria Few /HPF (0-FEW) Urine Hyaline Casts Occasional /HPF O2 Saturation 94 % (92-99) 81 % (92-99) Arterial Blood pH 7.33 (7.35-7.45) 7.28 (7.35-7.45) Arterial Blood pCO2 at Patient Temp 96 mmHg (35-46) 119 mmHg (35-46) Arterial Blood pO2 at Patient Temp 77 mmHg (65-108) 53 mmHg (65-108) Arterial Blood HCO3 50 mmol/L (21-28) 55 mmol/L (21-28) Arterial Blood Base Excess 21 mmol/L (-3-3) 24 mmol/L (-3-3) FiO2 50 36 White Blood Count 7.4 x10^3/uL (4.0-11.0) Red Blood Count 2.65 x10^6/uL (3.50-5.40) Hemoglobin 9.3 g/dL (12.0-15.5) Hematocrit 28.8 % (36.0-47.0) Mean Corpuscular Volume 109 fL (79-100) Mean Corpuscular Hemoglobin 35 pg (25-35) Mean Corpuscular Hemoglobin Concent 32 g/dL (31-37) Red Cell Distribution Width 21.0 % (11.5-14.5) Platelet Count 177 x10^3/uL (140-400) Neutrophils (%) (Auto) 77 % (31-73) Lymphocytes (%) (Auto) 12 % (24-48) Monocytes (%) (Auto) 9 % (0-9) Eosinophils (%) (Auto) 2 % (0-3) Basophils (%) (Auto) 1 % (0-3) Neutrophils # (Auto) 5.7 x10^3uL (1.8-7.7) Lymphocytes # (Auto) 0.9 x10^3/uL (1.0-4.8) Monocytes # (Auto) 0.7 x10^3/uL (0.0-1.1) Eosinophils # (Auto) 0.1 x10^3/uL (0.0-0.7) Basophils # (Auto) 0.1 x10^3/uL (0.0-0.2) Platelet Estimate Adequate (ADEQUATE) Polychromasia Present Basophilic Stippling Present Anisocytosis Mod Macrocytosis Slight Sodium Level 144 mmol/L (136-145) Potassium Level 2.6 mmol/L (3.5-5.1) Chloride Level 92 mmol/L (98-107) Carbon Dioxide Level > 45 mmol/L (21-32) Anion Gap (6-14) Blood Urea Nitrogen 12 mg/dL (7-20) Creatinine 0.8 mg/dL (0.6-1.0) Estimated GFR (Cockcroft-Gault) 72.9 BUN/Creatinine Ratio 15 (6-20) Glucose Level 149 mg/dL (70-99) Lactic Acid Level 1.2 mmol/L (0.4-2.0) Calcium Level 9.7 mg/dL (8.5-10.1) Magnesium Level 1.3 mg/dL (1.8-2.4) Total Bilirubin 0.5 mg/dL (0.2-1.0) Aspartate Amino Transf (AST/SGOT) 30 U/L (15-37) Alanine Aminotransferase (ALT/SGPT) 19 U/L (14-59) Alkaline Phosphatase 76 U/L (46-116) Creatine Kinase 53 U/L (26-192) Creatine Kinase MB (Mass) 2.7 ng/mL (0.0-3.6) Creatine Kinase MB Relative Index % (0-4) Troponin I Quantitative 0.033 ng/mL (0.000-0.055) EG-Lcr-L-Type Natriuretic Peptide 936 pg/mL (0-124) Total Protein 6.9 g/dL (6.4-8.2) Albumin 3.1 g/dL (3.4-5.0) Albumin/Globulin Ratio 0.8 (1.0-1.7) Thyroid Stimulating Hormone (TSH) 0.868 uIU/mL (0.358-3.74) Influenza Type A Antigen Negative (NEGATIVE) Influenza Type B Antigen Negative (NEGATIVE) Test 07/18/16 14:55 07/18/16 18:25 07/19/16 08:00 07/19/16 09:50 O2 Saturation 95 % (92-99) 88 % (92-99) 92 % (92-99) Arterial Blood pH 7.30 (7.35-7.45) 7.39 (7.35-7.45) 7.33 (7.35-7.45) Arterial Blood pCO2 at Patient Temp 113 mmHg (35-46) 78 mmHg (35-46) 76 mmHg (35-46) Arterial Blood pO2 at Patient Temp 84 mmHg (65-108) 57 mmHg (65-108) 73 mmHg (65-108) Arterial Blood HCO3 54 mmol/L (21-28) 47 mmol/L (21-28) 39 mmol/L (21-28) Arterial Blood Base Excess 24 mmol/L (-3-3) 19 mmol/L (-3-3) 11 mmol/L (-3-3) FiO2 50 35 35 White Blood Count 9.0 x10^3/uL (4.0-11.0) Red Blood Count 2.59 x10^6/uL (3.50-5.40) Hemoglobin 9.2 g/dL (12.0-15.5) Hematocrit 28.8 % (36.0-47.0) Mean Corpuscular Volume 109 fL (79-100) Mean Corpuscular Hemoglobin 36 pg (25-35) Mean Corpuscular Hemoglobin Concent 32 g/dL (31-37) Red Cell Distribution Width 22.1 % (11.5-14.5) Platelet Count 173 x10^3/uL (140-400) Neutrophils (%) (Auto) 70 % (31-73) Lymphocytes (%) (Auto) 20 % (24-48) Monocytes (%) (Auto) 11 % (0-9) Eosinophils (%) (Auto) 0 % (0-3) Basophils (%) (Auto) 0 % (0-3) Neutrophils # (Auto) 6.2 x10^3uL (1.8-7.7) Lymphocytes # (Auto) 1.8 x10^3/uL (1.0-4.8) Monocytes # (Auto) 0.9 x10^3/uL (0.0-1.1) Eosinophils # (Auto) 0.0 x10^3/uL (0.0-0.7) Basophils # (Auto) 0.0 x10^3/uL (0.0-0.2) Sodium Level 141 mmol/L (136-145) Potassium Level 4.0 mmol/L (3.5-5.1) Chloride Level 95 mmol/L (98-107) Carbon Dioxide Level 39 mmol/L (21-32) Anion Gap 7 (6-14) Blood Urea Nitrogen 17 mg/dL (7-20) Creatinine 0.9 mg/dL (0.6-1.0) Estimated GFR (Cockcroft-Gault) 63.7 Glucose Level 53 mg/dL (70-99) Calcium Level 9.7 mg/dL (8.5-10.1) Laboratory Tests Test 07/18/16 10:31 07/18/16 10:39 07/18/16 10:45 07/18/16 10:47 Urine Collection Type Unknown Urine Color Yellow Urine Clarity Clear Urine pH 5.5 Urine Specific [place] 1.010 Urine Protein Negative mg/dL (NEG-TRACE) Urine Glucose (UA) Negative mg/dL (NEG) Urine Ketones (Stick) Negative mg/dL (NEG) Urine Blood Negative (NEG) Urine Nitrite Negative (NEG) Urine Bilirubin Negative (NEG) Urine Urobilinogen Dipstick 0.2 mg/dL (0.2 mg/dL) Urine Leukocyte Esterase Negative (NEG) Urine RBC 0 /HPF (0-2) Urine WBC Occ /HPF (0-4) Urine Squamous Epithelial Cells Mod /LPF Urine Transitional Epithelial Cells Occ /LPF Urine Bacteria Few /HPF (0-FEW) Urine Hyaline Casts Occasional /HPF O2 Saturation 94 % (92-99) 81 % (92-99) Arterial Blood pH 7.33 (7.35-7.45) 7.28 (7.35-7.45) Arterial Blood pCO2 at Patient Temp 96 mmHg (35-46) 119 mmHg (35-46) Arterial Blood pO2 at Patient Temp 77 mmHg (65-108) 53 mmHg (65-108) Arterial Blood HCO3 50 mmol/L (21-28) 55 mmol/L (21-28) Arterial Blood Base Excess 21 mmol/L (-3-3) 24 mmol/L (-3-3) FiO2 50 36 White Blood Count 7.4 x10^3/uL (4.0-11.0) Red Blood Count 2.65 x10^6/uL (3.50-5.40) Hemoglobin 9.3 g/dL (12.0-15.5) Hematocrit 28.8 % (36.0-47.0) Mean Corpuscular Volume 109 fL (79-100) Mean Corpuscular Hemoglobin 35 pg (25-35) Mean Corpuscular Hemoglobin Concent 32 g/dL (31-37) Red Cell Distribution Width 21.0 % (11.5-14.5) Platelet Count 177 x10^3/uL (140-400) Neutrophils (%) (Auto) 77 % (31-73) Lymphocytes (%) (Auto) 12 % (24-48) Monocytes (%) (Auto) 9 % (0-9) Eosinophils (%) (Auto) 2 % (0-3) Basophils (%) (Auto) 1 % (0-3) Neutrophils # (Auto) 5.7 x10^3uL (1.8-7.7) Lymphocytes # (Auto) 0.9 x10^3/uL (1.0-4.8) Monocytes # (Auto) 0.7 x10^3/uL (0.0-1.1) Eosinophils # (Auto) 0.1 x10^3/uL (0.0-0.7) Basophils # (Auto) 0.1 x10^3/uL (0.0-0.2) Platelet Estimate Adequate (ADEQUATE) Polychromasia Present Basophilic Stippling Present Anisocytosis Mod Macrocytosis Slight Sodium Level 144 mmol/L (136-145) Potassium Level 2.6 mmol/L (3.5-5.1) Chloride Level 92 mmol/L (98-107) Carbon Dioxide Level > 45 mmol/L (21-32) Anion Gap (6-14) Blood Urea Nitrogen 12 mg/dL (7-20) Creatinine 0.8 mg/dL (0.6-1.0) Estimated GFR (Cockcroft-Gault) 72.9 BUN/Creatinine Ratio 15 (6-20) Glucose Level 149 mg/dL (70-99) Lactic Acid Level 1.2 mmol/L (0.4-2.0) Calcium Level 9.7 mg/dL (8.5-10.1) Magnesium Level 1.3 mg/dL (1.8-2.4) Total Bilirubin 0.5 mg/dL (0.2-1.0) Aspartate Amino Transf (AST/SGOT) 30 U/L (15-37) Alanine Aminotransferase (ALT/SGPT) 19 U/L (14-59) Alkaline Phosphatase 76 U/L (46-116) Creatine Kinase 53 U/L (26-192) Creatine Kinase MB (Mass) 2.7 ng/mL (0.0-3.6) Creatine Kinase MB Relative Index % (0-4) Troponin I Quantitative 0.033 ng/mL (0.000-0.055) ST-Jxh-[id number]-Type Natriuretic Peptide 936 pg/mL (0-124) Total Protein 6.9 g/dL (6.4-8.2) Albumin 3.1 g/dL (3.4-5.0) Albumin/Globulin Ratio 0.8 (1.0-1.7) Thyroid Stimulating Hormone (TSH) 0.868 uIU/mL (0.358-3.74) Influenza Type A Antigen Negative (NEGATIVE) Influenza Type B Antigen Negative (NEGATIVE) Test 07/18/16 14:55 07/18/16 18:25 07/19/16 08:00 07/19/16 09:50 O2 Saturation 95 % (92-99) 88 % (92-99) 92 % (92-99) Arterial Blood pH 7.30 (7.35-7.45) 7.39 (7.35-7.45) 7.33 (7.35-7.45) Arterial Blood pCO2 at Patient Temp 113 mmHg (35-46) 78 mmHg (35-46) 76 mmHg (35-46) Arterial Blood pO2 at Patient Temp 84 mmHg (65-108) 57 mmHg (65-108) 73 mmHg (65-108) Arterial Blood HCO3 54 mmol/L (21-28) 47 mmol/L (21-28) 39 mmol/L (21-28) Arterial Blood Base Excess 24 mmol/L (-3-3) 19 mmol/L (-3-3) 11 mmol/L (-3-3) FiO2 50 35 35 White Blood Count 9.0 x10^3/uL (4.0-11.0) Red Blood Count 2.59 x10^6/uL (3.50-5.40) Hemoglobin 9.2 g/dL (12.0-15.5) Hematocrit 28.8 % (36.0-47.0) Mean Corpuscular Volume 109 fL (79-100) Mean Corpuscular Hemoglobin 36 pg (25-35) Mean Corpuscular Hemoglobin Concent 32 g/dL (31-37) Red Cell Distribution Width 22.1 % (11.5-14.5) Platelet Count 173 x10^3/uL (140-400) Neutrophils (%) (Auto) 70 % (31-73) Lymphocytes (%) (Auto) 20 % (24-48) Monocytes (%) (Auto) 11 % (0-9) Eosinophils (%) (Auto) 0 % (0-3) Basophils (%) (Auto) 0 % (0-3) Neutrophils # (Auto) 6.2 x10^3uL (1.8-7.7) Lymphocytes # (Auto) 1.8 x10^3/uL (1.0-4.8) Monocytes # (Auto) 0.9 x10^3/uL (0.0-1.1) Eosinophils # (Auto) 0.0 x10^3/uL (0.0-0.7) Basophils # (Auto) 0.0 x10^3/uL (0.0-0.2) Sodium Level 141 mmol/L (136-145) Potassium Level 4.0 mmol/L (3.5-5.1) Chloride Level 95 mmol/L (98-107) Carbon Dioxide Level 39 mmol/L (21-32) Anion Gap 7 (6-14) Blood Urea Nitrogen 17 mg/dL (7-20) Creatinine 0.9 mg/dL (0.6-1.0) Estimated GFR (Cockcroft-Gault) 63.7 Glucose Level 53 mg/dL (70-99) Calcium Level 9.7 mg/dL (8.5-10.1) Medications Active Scripts Medications Dose Route/Sig Max Daily Dose Days Date Category Lipitor (Atorvastatin Calcium) 20 Mg Tablet 20 Mg PO HS 07/18/16 Reported Zyrtec (Cetirizine Hcl) 10 Mg Tablet 1 Tab PO DAILY 07/18/16 Reported Fluticasone Propionate Nasal Fenton (Fluticasone Propionate) 16 Gm Fenton.susp 2 Fenton NS DAILY 07/18/16 Reported Lasix (Furosemide) 40 Mg Tablet 1 Tab PO DAILY 07/18/16 Reported Folic Acid 1 Mg Tablet 2 Tab PO DAILY 07/18/16 Reported Ventolin Hfa Inhaler (Albuterol Sulfate) 18 Gm Hfa.aer.ad 2 Puff INH QID 07/18/16 Reported Leflunomide 20 Mg Tablet 20 Mg PO DAILY 07/18/16 Reported Metoprolol Succinate ( Xl ) (Metoprolol Succinate) 25 Mg Tab.er.24h 0.5 Tab PO DAILY 07/18/16 Reported Levothyroxine Sodium 112 Mcg Tablet 112 Mcg PO DAILY 04/19/13 Reported Diflunisal 500 Mg Tablet 500 Mg PO BID 04/19/13 Reported Sulfasalazine 500 Mg Tablet 1,000 Mg PO BID 04/19/13 Reported Prednisone 1 Mg Tablet 1 Mg PO QID 04/19/13 Reported Impression . 1. Acute on chronic hypoxic and hypercapnic respiratory failure. This has multifactorial etiologies and includes combination of acute bronchitis, hypoventilation from the use of benzodiazepines and narcotics and possible cor pulmonale. She does have lower extremity edema. 2. Underlying severe chronic obstructive pulmonary disease with chronic respiratory failure, now with acute respiratory failure. 3. History of rheumatoid arthritis, on chronic steroids and methotrexate. 4. Suspected acute bronchitis. 5. Chronic benzodiazepine and narcotic use. She uses oxycodone and diazepam regularly, which may have contributed to her encephalopathy. 6. Acute encephalopathy related to medication effect and also hypercapnia. Plan . 1. Continue with present BiPAP. ABGs show improvement. We will continue BiPAP until pH normalizes. I made necessary adjustments on the BiPAP settings. 2. Follow ABGs.one amp of bicarb today 3. empiric antibiotic. 4. If blood pressure tolerates, we will do mild diuresis. 5. Minimize the use of home narcotics and benzodiazepines. 6. Continue her steroids and methotrexate for rheumatoid arthritis. 7. DVT prophylaxis. 8. Discussed with ELO SMITH MD July 19, 2016 10:21
[2016-07-19] MEDS ORDERED: SODIUM BICARB ADULT 8.4% 50 MEQ/50 ML DISP.SYRIN. IV ONE (10:30)
--- NOTE | 2016-07-19 12:16 | PDOC ---
PROGRESS NOTES Chief Complaint Chief Complaint Acute on chronic hypoxic, hypercapnic respir failure ASSESSMENT AND PLAN: 1. COPD exacerbation: on BiPAP, nebs. not on high dose steroids for now. appreciate Dr Elizabeth's help with management. echo pending for cor pulmonale eval ; cautious diuresis as tolerated 2. Acute bronchitis: cont levaquin empirically 3. AMS: suspected inadvertent drug O/D with benzos and narcotics at home. minimize here; possible contribution by drug induced hypoventilation 4. RA: on chronic low dose steroids, methotrexate and plaquenil. can be held while on BiPAP, otherwise continue 5. DVT prophylaxis. History of Present Illness History of Present Illness feels anxious. talking nonstop although advised to breath with BiPAP. c/o pain all over Vitals Vitals Vital Signs Date Time Temp Pulse Resp B/P (MAP) Pulse Ox O2 Delivery O2 Flow Rate FiO2 07/19/16 11:59 Bi-pap 07/19/16 11:31 90 07/19/16 11:00 126 31 183/74 (110) 07/19/16 08:00 98.3 98.3 07/18/16 10:45 4.0 Physical Exam General: Alert, Cooperative, mild distress Heart: Regular rate Lungs: Crackles Abdomen: Normal bowel sounds, No tenderness Extremities: No edema Skin: No rashes Labs LABS Laboratory Tests Test 07/18/16 14:55 07/18/16 18:25 07/19/16 08:00 07/19/16 09:50 O2 Saturation 95 % (92-99) 88 % (92-99) 92 % (92-99) Arterial Blood pH 7.30 (7.35-7.45) 7.39 (7.35-7.45) 7.33 (7.35-7.45) Arterial Blood pCO2 at Patient Temp 113 mmHg (35-46) 78 mmHg (35-46) 76 mmHg (35-46) Arterial Blood pO2 at Patient Temp 84 mmHg (65-108) 57 mmHg (65-108) 73 mmHg (65-108) Arterial Blood HCO3 54 mmol/L (21-28) 47 mmol/L (21-28) 39 mmol/L (21-28) Arterial Blood Base Excess 24 mmol/L (-3-3) 19 mmol/L (-3-3) 11 mmol/L (-3-3) FiO2 50 35 35 White Blood Count 9.0 x10^3/uL (4.0-11.0) Red Blood Count 2.59 x10^6/uL (3.50-5.40) Hemoglobin 9.2 g/dL (12.0-15.5) Hematocrit 28.8 % (36.0-47.0) Mean Corpuscular Volume 109 fL (79-100) Mean Corpuscular Hemoglobin 36 pg (25-35) Mean Corpuscular Hemoglobin Concent 32 g/dL (31-37) Red Cell Distribution Width 22.1 % (11.5-14.5) Platelet Count 173 x10^3/uL (140-400) Neutrophils (%) (Auto) 70 % (31-73) Lymphocytes (%) (Auto) 20 % (24-48) Monocytes (%) (Auto) 11 % (0-9) Eosinophils (%) (Auto) 0 % (0-3) Basophils (%) (Auto) 0 % (0-3) Neutrophils # (Auto) 6.2 x10^3uL (1.8-7.7) Lymphocytes # (Auto) 1.8 x10^3/uL (1.0-4.8) Monocytes # (Auto) 0.9 x10^3/uL (0.0-1.1) Eosinophils # (Auto) 0.0 x10^3/uL (0.0-0.7) Basophils # (Auto) 0.0 x10^3/uL (0.0-0.2) Sodium Level 141 mmol/L (136-145) Potassium Level 4.0 mmol/L (3.5-5.1) Chloride Level 95 mmol/L (98-107) Carbon Dioxide Level 39 mmol/L (21-32) Anion Gap 7 (6-14) Blood Urea Nitrogen 17 mg/dL (7-20) Creatinine 0.9 mg/dL (0.6-1.0) Estimated GFR (Cockcroft-Gault) 63.7 Glucose Level 53 mg/dL (70-99) Calcium Level 9.7 mg/dL (8.5-10.1) JESSICA RODNEY MD July 19, 2016 12:16
[2016-07-19 13:47] LABS: HCO3 ABG 39 mmol/L (21-28); PCO2 ABG 58 mmHg (35-46); PH ABG 7.45 (7.35-7.45); PO2 ABG 53 mmHg (65-108); SAT O2 ABG 85 % (92-99)
[2016-07-19 13:51] LABS: FIO2 ABG 30
[2016-07-19] MEDS: ATORVASTATIN CALCIUM 20 MG TABLET PO SCH (21:30)
[2016-07-19] MEDS: ACETAMINOPHEN 325 MG TABLET. PO PRN (21:43)
[2016-07-20] VITALS (18 sets, daily range): BP systolic 89–124; BP diastolic 54–94
[2016-07-20] MEDS: IPRATRPIUM/ALBUTEROL 0.5/2.5MG 3 ML NEBU. NEB SCH ×4 (07:54→19:48)
[2016-07-20 07:58] LABS: HCO3 ABG 45 mmol/L (21-28); PH ABG 7.42 (7.35-7.45); PO2 ABG 65 mmHg (65-108); SAT O2 ABG 90 % (92-99)
[2016-07-20 08:00] LABS: FIO2 ABG 30; PCO2 ABG 72 mmHg (35-46)
[2016-07-20 08:10] LABS: CALCIUM 9.6 mg/dL (8.5-10.1); CREATININE 0.9 mg/dL (0.6-1.0); GFR 63.7
[2016-07-20] MEDS: sulfaSALAzine 500 MG TABLET PO SCH ×2 (08:22→21:44)
[2016-07-20] MEDS: LEFLUNOMIDE 10 MG TABLET. PO SCH (08:22)
[2016-07-20] MEDS: SALSALATE 750 MG PO SCH ×2 (08:22→21:45)
[2016-07-20] MEDS: LEVOTHYROXINE 112 MCG TABLET PO SCH (08:22)
[2016-07-20] MEDS: CETIRIZINE HCL 10 MG TABLET. PO SCH (08:22)
[2016-07-20] MEDS: FOLIC ACID 1 MG TABLET. PO SCH (08:23)
[2016-07-20] MEDS: METOPROLOL SUCC 24HR ER 25 MG TAB.ER.24H. PO SCH (08:23)
[2016-07-20] MEDS: predniSONE 1 MG TABLET PO SCH ×5 (08:23→21:45)
[2016-07-20] MEDS: HYDROXYCHLOROQUINE 200 MG TABLET PO SCH ×2 (08:23→21:44)
[2016-07-20] MEDS: FLUTICASONE 50MCG/NASAL SPRAY 16GM BOTTLE. NS SCH (08:24)
[2016-07-20] MEDS: FUROSEMIDE 40 MG TABLET. PO SCH (08:24)
[2016-07-20 09:01] LABS: BASO % 0 % (0-3); EOS % 1 % (0-3); HEMATOCRIT 29.7 % (36.0-47.0); HEMOGLOBIN 9.5 g/dL (12.0-15.5); LYMPH # 1.3 x10^3/uL (1.0-4.8); LYMPH % 16 % (24-48); MEAN CORPUSCULAR HEMOGLOBIN 35 pg (25-35); MEAN CORPUSCULAR HGB CONC 32 g/dL (31-37); MEAN CORPUSCULAR VOLUME 108 fL (79-100); MONO % 10 % (0-9); NEUT % 73 % (31-73); PLATELET COUNT 165 x10^3/uL (140-400); RED BLOOD COUNT 2.75 x10^6/uL (3.50-5.40); RED CELL DISTRIBUTION WIDTH 22.1 % (11.5-14.5); WHITE BLOOD COUNT 8.1 x10^3/uL (4.0-11.0)
--- NOTE | 2016-07-20 09:34 | PDOC ---
PROGRESS NOTES Chief Complaint Chief Complaint Acute on chronic hypoxic, hypercapnic respir failure ASSESSMENT AND PLAN: 1. COPD exacerbation: on BiPAP, nebs. not on high dose steroids for now. appreciate Dr Elizabeth's help with management. echo nl with nl pA pressure; cautious diuresis as tolerated 2. Acute bronchitis: cont levaquin empirically 3. AMS: suspected inadvertent drug O/D with benzos and narcotics at home. minimize here; possible contribution by drug induced hypoventilation 4. RA: on chronic low dose steroids, methotrexate and plaquenil. can be held while on BiPAP, otherwise continue 5. DVT prophylaxis. History of Present Illness History of Present Illness remains on BiPAP almost around the clock, with quick desatting. pCO2 remains in 70s with normalizing pH Vitals Vitals Vital Signs Date Time Temp Pulse Resp B/P (MAP) Pulse Ox O2 Delivery O2 Flow Rate FiO2 07/20/16 09:19 96 BiPAP/CPAP 07/20/16 08:23 103 104/58 07/20/16 08:00 98.0 26 98.0 07/19/16 16:28 10.0 Physical Exam General: Alert, Cooperative, mild distress Heart: Regular rate Lungs: Crackles Abdomen: Normal bowel sounds, No tenderness Extremities: No edema Skin: No rashes Labs LABS Laboratory Tests Test 07/19/16 09:50 07/19/16 13:38 07/20/16 07:21 07/20/16 08:00 White Blood Count 9.0 x10^3/uL (4.0-11.0) 8.1 x10^3/uL (4.0-11.0) Red Blood Count 2.59 x10^6/uL (3.50-5.40) 2.75 x10^6/uL (3.50-5.40) Hemoglobin 9.2 g/dL (12.0-15.5) 9.5 g/dL (12.0-15.5) Hematocrit 28.8 % (36.0-47.0) 29.7 % (36.0-47.0) Mean Corpuscular Volume 109 fL (79-100) 108 fL (79-100) Mean Corpuscular Hemoglobin 36 pg (25-35) 35 pg (25-35) Mean Corpuscular Hemoglobin Concent 32 g/dL (31-37) 32 g/dL (31-37) Red Cell Distribution Width 22.1 % (11.5-14.5) 22.1 % (11.5-14.5) Platelet Count 173 x10^3/uL (140-400) 165 x10^3/uL (140-400) Neutrophils (%) (Auto) 70 % (31-73) 73 % (31-73) Lymphocytes (%) (Auto) 20 % (24-48) 16 % (24-48) Monocytes (%) (Auto) 11 % (0-9) 10 % (0-9) Eosinophils (%) (Auto) 0 % (0-3) 1 % (0-3) Basophils (%) (Auto) 0 % (0-3) 0 % (0-3) Neutrophils # (Auto) 6.2 x10^3uL (1.8-7.7) 5.9 x10^3uL (1.8-7.7) Lymphocytes # (Auto) 1.8 x10^3/uL (1.0-4.8) 1.3 x10^3/uL (1.0-4.8) Monocytes # (Auto) 0.9 x10^3/uL (0.0-1.1) 0.8 x10^3/uL (0.0-1.1) Eosinophils # (Auto) 0.0 x10^3/uL (0.0-0.7) 0.1 x10^3/uL (0.0-0.7) Basophils # (Auto) 0.0 x10^3/uL (0.0-0.2) 0.0 x10^3/uL (0.0-0.2) Sodium Level 141 mmol/L (136-145) 143 mmol/L (136-145) Potassium Level 4.0 mmol/L (3.5-5.1) 3.0 mmol/L (3.5-5.1) Chloride Level 95 mmol/L (98-107) 93 mmol/L (98-107) Carbon Dioxide Level 39 mmol/L (21-32) 41 mmol/L (21-32) Anion Gap 7 (6-14) 9 (6-14) Blood Urea Nitrogen 17 mg/dL (7-20) 21 mg/dL (7-20) Creatinine 0.9 mg/dL (0.6-1.0) 0.9 mg/dL (0.6-1.0) Estimated GFR (Cockcroft-Gault) 63.7 63.7 Glucose Level 53 mg/dL (70-99) 37 mg/dL (70-99) Calcium Level 9.7 mg/dL (8.5-10.1) 9.6 mg/dL (8.5-10.1) O2 Saturation 85 % (92-99) 90 % (92-99) Arterial Blood pH 7.45 (7.35-7.45) 7.42 (7.35-7.45) Arterial Blood pCO2 at Patient Temp 58 mmHg (35-46) 72 mmHg (35-46) Arterial Blood pO2 at Patient Temp 53 mmHg (65-108) 65 mmHg (65-108) Arterial Blood HCO3 39 mmol/L (21-28) 45 mmol/L (21-28) Arterial Blood Base Excess 13 mmol/L (-3-3) 18 mmol/L (-3-3) FiO2 30 30 JESSICA RODNEY MD July 20, 2016 09:34
--- NOTE | 2016-07-20 10:53 | PDOC ---
PULMONARY PROGRESS NOTES Subjective on BIPAP awake ABG compensated Vitals Vital Signs Date Time Temp Pulse Resp B/P (MAP) Pulse Ox O2 Delivery O2 Flow Rate FiO2 07/20/16 10:00 128 26 89/62 (71) 91 BiPAP/CPAP 07/20/16 08:00 98.0 98.0 07/19/16 16:28 10.0 General: Alert, No acute distress Lungs: Other (decrease bs) Cardiovascular: S1 Abdomen: Soft Neuro Exam: Alert Extremities: Other (trace edema) Skin: Warm Labs Laboratory Tests Test 07/18/16 13:18 07/18/16 14:55 07/18/16 18:25 07/19/16 08:00 Nasal Screen MRSA (PCR) Negative (Negative) O2 Saturation 95 % (92-99) 88 % (92-99) 92 % (92-99) Arterial Blood pH 7.30 (7.35-7.45) 7.39 (7.35-7.45) 7.33 (7.35-7.45) Arterial Blood pCO2 at Patient Temp 113 mmHg (35-46) 78 mmHg (35-46) 76 mmHg (35-46) Arterial Blood pO2 at Patient Temp 84 mmHg (65-108) 57 mmHg (65-108) 73 mmHg (65-108) Arterial Blood HCO3 54 mmol/L (21-28) 47 mmol/L (21-28) 39 mmol/L (21-28) Arterial Blood Base Excess 24 mmol/L (-3-3) 19 mmol/L (-3-3) 11 mmol/L (-3-3) FiO2 50 35 35 Test 07/19/16 09:50 07/19/16 13:38 07/20/16 07:21 07/20/16 08:00 White Blood Count 9.0 x10^3/uL (4.0-11.0) 8.1 x10^3/uL (4.0-11.0) Red Blood Count 2.59 x10^6/uL (3.50-5.40) 2.75 x10^6/uL (3.50-5.40) Hemoglobin 9.2 g/dL (12.0-15.5) 9.5 g/dL (12.0-15.5) Hematocrit 28.8 % (36.0-47.0) 29.7 % (36.0-47.0) Mean Corpuscular Volume 109 fL (79-100) 108 fL (79-100) Mean Corpuscular Hemoglobin 36 pg (25-35) 35 pg (25-35) Mean Corpuscular Hemoglobin Concent 32 g/dL (31-37) 32 g/dL (31-37) Red Cell Distribution Width 22.1 % (11.5-14.5) 22.1 % (11.5-14.5) Platelet Count 173 x10^3/uL (140-400) 165 x10^3/uL (140-400) Neutrophils (%) (Auto) 70 % (31-73) 73 % (31-73) Lymphocytes (%) (Auto) 20 % (24-48) 16 % (24-48) Monocytes (%) (Auto) 11 % (0-9) 10 % (0-9) Eosinophils (%) (Auto) 0 % (0-3) 1 % (0-3) Basophils (%) (Auto) 0 % (0-3) 0 % (0-3) Neutrophils # (Auto) 6.2 x10^3uL (1.8-7.7) 5.9 x10^3uL (1.8-7.7) Lymphocytes # (Auto) 1.8 x10^3/uL (1.0-4.8) 1.3 x10^3/uL (1.0-4.8) Monocytes # (Auto) 0.9 x10^3/uL (0.0-1.1) 0.8 x10^3/uL (0.0-1.1) Eosinophils # (Auto) 0.0 x10^3/uL (0.0-0.7) 0.1 x10^3/uL (0.0-0.7) Basophils # (Auto) 0.0 x10^3/uL (0.0-0.2) 0.0 x10^3/uL (0.0-0.2) Sodium Level 141 mmol/L (136-145) 143 mmol/L (136-145) Potassium Level 4.0 mmol/L (3.5-5.1) 3.0 mmol/L (3.5-5.1) Chloride Level 95 mmol/L (98-107) 93 mmol/L (98-107) Carbon Dioxide Level 39 mmol/L (21-32) 41 mmol/L (21-32) Anion Gap 7 (6-14) 9 (6-14) Blood Urea Nitrogen 17 mg/dL (7-20) 21 mg/dL (7-20) Creatinine 0.9 mg/dL (0.6-1.0) 0.9 mg/dL (0.6-1.0) Estimated GFR (Cockcroft-Gault) 63.7 63.7 Glucose Level 53 mg/dL (70-99) 37 mg/dL (70-99) Calcium Level 9.7 mg/dL (8.5-10.1) 9.6 mg/dL (8.5-10.1) O2 Saturation 85 % (92-99) 90 % (92-99) Arterial Blood pH 7.45 (7.35-7.45) 7.42 (7.35-7.45) Arterial Blood pCO2 at Patient Temp 58 mmHg (35-46) 72 mmHg (35-46) Arterial Blood pO2 at Patient Temp 53 mmHg (65-108) 65 mmHg (65-108) Arterial Blood HCO3 39 mmol/L (21-28) 45 mmol/L (21-28) Arterial Blood Base Excess 13 mmol/L (-3-3) 18 mmol/L (-3-3) FiO2 30 30 Test 07/20/16 09:01 07/20/16 09:56 Glucose (Fingerstick) 60 mg/dL (70-99) 138 mg/dL (70-99) Laboratory Tests Test 07/19/16 13:38 07/20/16 07:21 07/20/16 08:00 07/20/16 09:01 O2 Saturation 85 % (92-99) 90 % (92-99) Arterial Blood pH 7.45 (7.35-7.45) 7.42 (7.35-7.45) Arterial Blood pCO2 at Patient Temp 58 mmHg (35-46) 72 mmHg (35-46) Arterial Blood pO2 at Patient Temp 53 mmHg (65-108) 65 mmHg (65-108) Arterial Blood HCO3 39 mmol/L (21-28) 45 mmol/L (21-28) Arterial Blood Base Excess 13 mmol/L (-3-3) 18 mmol/L (-3-3) FiO2 30 30 White Blood Count 8.1 x10^3/uL (4.0-11.0) Red Blood Count 2.75 x10^6/uL (3.50-5.40) Hemoglobin 9.5 g/dL (12.0-15.5) Hematocrit 29.7 % (36.0-47.0) Mean Corpuscular Volume 108 fL (79-100) Mean Corpuscular Hemoglobin 35 pg (25-35) Mean Corpuscular Hemoglobin Concent 32 g/dL (31-37) Red Cell Distribution Width 22.1 % (11.5-14.5) Platelet Count 165 x10^3/uL (140-400) Neutrophils (%) (Auto) 73 % (31-73) Lymphocytes (%) (Auto) 16 % (24-48) Monocytes (%) (Auto) 10 % (0-9) Eosinophils (%) (Auto) 1 % (0-3) Basophils (%) (Auto) 0 % (0-3) Neutrophils # (Auto) 5.9 x10^3uL (1.8-7.7) Lymphocytes # (Auto) 1.3 x10^3/uL (1.0-4.8) Monocytes # (Auto) 0.8 x10^3/uL (0.0-1.1) Eosinophils # (Auto) 0.1 x10^3/uL (0.0-0.7) Basophils # (Auto) 0.0 x10^3/uL (0.0-0.2) Sodium Level 143 mmol/L (136-145) Potassium Level 3.0 mmol/L (3.5-5.1) Chloride Level 93 mmol/L (98-107) Carbon Dioxide Level 41 mmol/L (21-32) Anion Gap 9 (6-14) Blood Urea Nitrogen 21 mg/dL (7-20) Creatinine 0.9 mg/dL (0.6-1.0) Estimated GFR (Cockcroft-Gault) 63.7 Glucose Level 37 mg/dL (70-99) Calcium Level 9.6 mg/dL (8.5-10.1) Glucose (Fingerstick) 60 mg/dL (70-99) Test 07/20/16 09:56 Glucose (Fingerstick) 138 mg/dL (70-99) Medications Active Scripts Medications Dose Route/Sig Max Daily Dose Days Date Category Lipitor (Atorvastatin Calcium) 20 Mg Tablet 20 Mg PO HS 07/18/16 Reported Zyrtec (Cetirizine Hcl) 10 Mg Tablet 1 Tab PO DAILY 07/18/16 Reported Fluticasone Propionate Nasal [place] (Fluticasone Propionate) 16 Gm [place].susp 2 [place] NS DAILY 07/18/16 Reported Lasix (Furosemide) 40 Mg Tablet 1 Tab PO DAILY 07/18/16 Reported Folic Acid 1 Mg Tablet 2 Tab PO DAILY 07/18/16 Reported Ventolin Hfa Inhaler (Albuterol Sulfate) 18 Gm Hfa.aer.ad 2 Puff INH QID 07/18/16 Reported Leflunomide 20 Mg Tablet 20 Mg PO DAILY 07/18/16 Reported Metoprolol Succinate ( Xl ) (Metoprolol Succinate) 25 Mg Tab.er.24h 0.5 Tab PO DAILY 07/18/16 Reported Levothyroxine Sodium 112 Mcg Tablet 112 Mcg PO DAILY 04/19/13 Reported Diflunisal 500 Mg Tablet 500 Mg PO BID 04/19/13 Reported Sulfasalazine 500 Mg Tablet 1,000 Mg PO BID 04/19/13 Reported Prednisone 1 Mg Tablet 1 Mg PO QID 04/19/13 Reported Impression . 1. Acute on chronic hypoxic and hypercapnic respiratory failure. This has multifactorial etiologies and includes combination of acute bronchitis, hypoventilation from the use of benzodiazepines and narcotics and possible cor pulmonale. She does have lower extremity edema. 2. Underlying severe chronic obstructive pulmonary disease with chronic respiratory failure, now with acute respiratory failure. 3. History of rheumatoid arthritis, on chronic steroids and methotrexate. 4. Suspected acute bronchitis. 5. Chronic benzodiazepine and narcotic use. She uses oxycodone and diazepam regularly, which may have contributed to her encephalopathy. 6. Acute encephalopathy related to medication effect and also hypercapnia. Plan . 1. Clinically better. Try off BiPAP during day. ABGs show improvement. We will continue BiPAP qhs 2. Pt wants her pain meds for RA. will can re-start low dose narcotics 3. empiric antibiotic. 4. prn diuresis. 5. Minimize the use of home narcotics and benzodiazepines. 6. Continue her steroids and methotrexate for rheumatoid arthritis. 7. DVT prophylaxis. 8. Discussed with ELO SMITH MD July 20, 2016 10:53
[2016-07-20] MEDS ORDERED: POTASSIUM CHLORIDE 20 MEQ TABLET.ER. PO ONE (11:00)
[2016-07-20] MEDS: ENOXAPARIN 40 MG/0.4 ML SYRINGE. SQ SCH ×2 (12:26→12:32)
[2016-07-20] MEDS: oxyCODONE/APAP 5/325 1 TAB TABLET PO PRN (12:27)
[2016-07-20] MEDS: ATORVASTATIN CALCIUM 20 MG TABLET PO SCH (21:45)
[2016-07-21] VITALS (14 sets, daily range): BP systolic 87–149; BP diastolic 55–82
[2016-07-21] MEDS: IPRATRPIUM/ALBUTEROL 0.5/2.5MG 3 ML NEBU. NEB SCH ×4 (07:47→19:44)
[2016-07-21 08:23] LABS: BASO % 1 % (0-3); EOS % 1 % (0-3); HEMATOCRIT 27.1 % (36.0-47.0); HEMOGLOBIN 8.7 g/dL (12.0-15.5); LYMPH # 1.3 x10^3/uL (1.0-4.8); LYMPH % 16 % (24-48); MEAN CORPUSCULAR HEMOGLOBIN 35 pg (25-35); MEAN CORPUSCULAR HGB CONC 32 g/dL (31-37); MEAN CORPUSCULAR VOLUME 108 fL (79-100); MONO % 10 % (0-9); NEUT % 72 % (31-73); PLATELET COUNT 139 x10^3/uL (140-400); RED CELL DISTRIBUTION WIDTH 21.9 % (11.5-14.5); WHITE BLOOD COUNT 7.7 x10^3/uL (4.0-11.0)
[2016-07-21 08:26] LABS: BLOOD UREA NITROGEN 22 mg/dL (7-20); CALCIUM 8.5 mg/dL (8.5-10.1); CHLORIDE 99 mmol/L (98-107); GFR 56.4; GLUCOSE 94 mg/dL (70-99); POTASSIUM 3.2 mmol/L (3.5-5.1); SODIUM 146 mmol/L (136-145)
[2016-07-21 08:27] LABS: ANION GAP 2 (6-14); CARBON DIOXIDE > 45 mmol/L (21-32)
--- NOTE | 2016-07-21 09:09 | PDOC ---
PROGRESS NOTES Chief Complaint Chief Complaint Acute on chronic hypoxic, hypercapnic respir failure ASSESSMENT AND PLAN: 1. COPD exacerbation: improving, off BiPAP (on at night only). not on high dose steroids for now. echo nl with nl pA pressure; cautious diuresis as tolerated 2. Acute bronchitis: cont levaquin empirically 3. AMS: suspected inadvertent drug O/D with benzos and narcotics at home. minimize here; possible contribution by drug induced hypoventilation 4. RA: on chronic low dose steroids, methotrexate and plaquenil. can be held while on BiPAP, otherwise continue 5. DVT prophylaxis. 6. Dispo: do med floor History of Present Illness History of Present Illness breathing much easier, back achy Vitals Vitals Vital Signs Date Time Temp Pulse Resp B/P (MAP) Pulse Ox O2 Delivery O2 Flow Rate FiO2 07/21/16 08:00 Nasal Cannula 4.0 07/21/16 07:48 93 07/21/16 07:00 103 25 97/57 (70) 07/21/16 04:00 97.8 97.8 Physical Exam General: Alert, Cooperative, No acute distress Heart: Regular rate Lungs: Clear Abdomen: Normal bowel sounds, No tenderness Extremities: No edema Skin: No rashes Labs LABS Laboratory Tests Test 07/20/16 09:01 07/20/16 09:56 07/21/16 07:25 07/21/16 08:00 Glucose (Fingerstick) 60 mg/dL (70-99) 138 mg/dL (70-99) 95 mg/dL (70-99) White Blood Count 7.7 x10^3/uL (4.0-11.0) Red Blood Count 2.50 x10^6/uL (3.50-5.40) Hemoglobin 8.7 g/dL (12.0-15.5) Hematocrit 27.1 % (36.0-47.0) Mean Corpuscular Volume 108 fL (79-100) Mean Corpuscular Hemoglobin 35 pg (25-35) Mean Corpuscular Hemoglobin Concent 32 g/dL (31-37) Red Cell Distribution Width 21.9 % (11.5-14.5) Platelet Count 139 x10^3/uL (140-400) Neutrophils (%) (Auto) 72 % (31-73) Lymphocytes (%) (Auto) 16 % (24-48) Monocytes (%) (Auto) 10 % (0-9) Eosinophils (%) (Auto) 1 % (0-3) Basophils (%) (Auto) 1 % (0-3) Neutrophils # (Auto) 5.6 x10^3uL (1.8-7.7) Lymphocytes # (Auto) 1.3 x10^3/uL (1.0-4.8) Monocytes # (Auto) 0.7 x10^3/uL (0.0-1.1) Eosinophils # (Auto) 0.1 x10^3/uL (0.0-0.7) Basophils # (Auto) 0.0 x10^3/uL (0.0-0.2) Sodium Level 146 mmol/L (136-145) Potassium Level 3.2 mmol/L (3.5-5.1) Chloride Level 99 mmol/L (98-107) Carbon Dioxide Level > 45 mmol/L (21-32) Anion Gap 2 (6-14) Blood Urea Nitrogen 22 mg/dL (7-20) Creatinine 1.0 mg/dL (0.6-1.0) Estimated GFR (Cockcroft-Gault) 56.4 Glucose Level 94 mg/dL (70-99) Calcium Level 8.5 mg/dL (8.5-10.1) JESSICA RODNEY MD July 21, 2016 09:09
[2016-07-21] MEDS: METOPROLOL SUCC 24HR ER 25 MG TAB.ER.24H. PO SCH (09:20)
[2016-07-21] MEDS: FUROSEMIDE 40 MG TABLET. PO SCH (09:21)
[2016-07-21] MEDS: LEVOTHYROXINE 112 MCG TABLET PO SCH (09:21)
[2016-07-21] MEDS: predniSONE 1 MG TABLET PO SCH ×4 (09:21→23:14)
[2016-07-21] MEDS: FLUTICASONE 50MCG/NASAL SPRAY 16GM BOTTLE. NS SCH (09:21)
[2016-07-21] MEDS: LEFLUNOMIDE 10 MG TABLET. PO SCH (09:21)
[2016-07-21] MEDS: FOLIC ACID 1 MG TABLET. PO SCH (09:21)
[2016-07-21] MEDS: SALSALATE 750 MG PO SCH ×2 (09:21→19:57)
[2016-07-21] MEDS: sulfaSALAzine 500 MG TABLET PO SCH ×2 (09:21→19:58)
[2016-07-21] MEDS: HYDROXYCHLOROQUINE 200 MG TABLET PO SCH ×2 (09:21→19:57)
[2016-07-21] MEDS: CETIRIZINE HCL 10 MG TABLET. PO SCH (09:21)
[2016-07-21] MEDS: oxyCODONE/APAP 5/325 1 TAB TABLET PO PRN (09:31)
--- NOTE | 2016-07-21 09:32 | PDOC ---
PULMONARY PROGRESS NOTES Subjective used BIPAP last night on 02, has back pain, sob is better, has cough. Vitals Vital Signs Date Time Temp Pulse Resp B/P (MAP) Pulse Ox O2 Delivery O2 Flow Rate FiO2 07/21/16 09:20 110 110/82 07/21/16 08:00 Nasal Cannula 4.0 07/21/16 07:48 93 07/21/16 07:00 25 07/21/16 04:00 97.8 97.8 Comments ros as mentioned as above other sys otherwise neg ROS: No Nausea General: Alert, No acute distress HEENT: Other (nc at perrl, shallow oropharynx nose clear) Lungs: Crackles, Other (decrease bs) Cardiovascular: S1, S2 Abdomen: Soft, Non-tender, Other (no mass) Neuro Exam: Alert Extremities: Other (trace edema) Skin: Warm Labs Laboratory Tests Test 07/19/16 09:50 07/19/16 13:38 07/20/16 07:21 07/20/16 08:00 White Blood Count 9.0 x10^3/uL (4.0-11.0) 8.1 x10^3/uL (4.0-11.0) Red Blood Count 2.59 x10^6/uL (3.50-5.40) 2.75 x10^6/uL (3.50-5.40) Hemoglobin 9.2 g/dL (12.0-15.5) 9.5 g/dL (12.0-15.5) Hematocrit 28.8 % (36.0-47.0) 29.7 % (36.0-47.0) Mean Corpuscular Volume 109 fL (79-100) 108 fL (79-100) Mean Corpuscular Hemoglobin 36 pg (25-35) 35 pg (25-35) Mean Corpuscular Hemoglobin Concent 32 g/dL (31-37) 32 g/dL (31-37) Red Cell Distribution Width 22.1 % (11.5-14.5) 22.1 % (11.5-14.5) Platelet Count 173 x10^3/uL (140-400) 165 x10^3/uL (140-400) Neutrophils (%) (Auto) 70 % (31-73) 73 % (31-73) Lymphocytes (%) (Auto) 20 % (24-48) 16 % (24-48) Monocytes (%) (Auto) 11 % (0-9) 10 % (0-9) Eosinophils (%) (Auto) 0 % (0-3) 1 % (0-3) Basophils (%) (Auto) 0 % (0-3) 0 % (0-3) Neutrophils # (Auto) 6.2 x10^3uL (1.8-7.7) 5.9 x10^3uL (1.8-7.7) Lymphocytes # (Auto) 1.8 x10^3/uL (1.0-4.8) 1.3 x10^3/uL (1.0-4.8) Monocytes # (Auto) 0.9 x10^3/uL (0.0-1.1) 0.8 x10^3/uL (0.0-1.1) Eosinophils # (Auto) 0.0 x10^3/uL (0.0-0.7) 0.1 x10^3/uL (0.0-0.7) Basophils # (Auto) 0.0 x10^3/uL (0.0-0.2) 0.0 x10^3/uL (0.0-0.2) Sodium Level 141 mmol/L (136-145) 143 mmol/L (136-145) Potassium Level 4.0 mmol/L (3.5-5.1) 3.0 mmol/L (3.5-5.1) Chloride Level 95 mmol/L (98-107) 93 mmol/L (98-107) Carbon Dioxide Level 39 mmol/L (21-32) 41 mmol/L (21-32) Anion Gap 7 (6-14) 9 (6-14) Blood Urea Nitrogen 17 mg/dL (7-20) 21 mg/dL (7-20) Creatinine 0.9 mg/dL (0.6-1.0) 0.9 mg/dL (0.6-1.0) Estimated GFR (Cockcroft-Gault) 63.7 63.7 Glucose Level 53 mg/dL (70-99) 37 mg/dL (70-99) Calcium Level 9.7 mg/dL (8.5-10.1) 9.6 mg/dL (8.5-10.1) O2 Saturation 85 % (92-99) 90 % (92-99) Arterial Blood pH 7.45 (7.35-7.45) 7.42 (7.35-7.45) Arterial Blood pCO2 at Patient Temp 58 mmHg (35-46) 72 mmHg (35-46) Arterial Blood pO2 at Patient Temp 53 mmHg (65-108) 65 mmHg (65-108) Arterial Blood HCO3 39 mmol/L (21-28) 45 mmol/L (21-28) Arterial Blood Base Excess 13 mmol/L (-3-3) 18 mmol/L (-3-3) FiO2 30 30 Test 07/20/16 09:01 07/20/16 09:56 07/21/16 07:25 07/21/16 08:00 Glucose (Fingerstick) 60 mg/dL (70-99) 138 mg/dL (70-99) 95 mg/dL (70-99) White Blood Count 7.7 x10^3/uL (4.0-11.0) Red Blood Count 2.50 x10^6/uL (3.50-5.40) Hemoglobin 8.7 g/dL (12.0-15.5) Hematocrit 27.1 % (36.0-47.0) Mean Corpuscular Volume 108 fL (79-100) Mean Corpuscular Hemoglobin 35 pg (25-35) Mean Corpuscular Hemoglobin Concent 32 g/dL (31-37) Red Cell Distribution Width 21.9 % (11.5-14.5) Platelet Count 139 x10^3/uL (140-400) Neutrophils (%) (Auto) 72 % (31-73) Lymphocytes (%) (Auto) 16 % (24-48) Monocytes (%) (Auto) 10 % (0-9) Eosinophils (%) (Auto) 1 % (0-3) Basophils (%) (Auto) 1 % (0-3) Neutrophils # (Auto) 5.6 x10^3uL (1.8-7.7) Lymphocytes # (Auto) 1.3 x10^3/uL (1.0-4.8) Monocytes # (Auto) 0.7 x10^3/uL (0.0-1.1) Eosinophils # (Auto) 0.1 x10^3/uL (0.0-0.7) Basophils # (Auto) 0.0 x10^3/uL (0.0-0.2) Sodium Level 146 mmol/L (136-145) Potassium Level 3.2 mmol/L (3.5-5.1) Chloride Level 99 mmol/L (98-107) Carbon Dioxide Level > 45 mmol/L (21-32) Anion Gap 2 (6-14) Blood Urea Nitrogen 22 mg/dL (7-20) Creatinine 1.0 mg/dL (0.6-1.0) Estimated GFR (Cockcroft-Gault) 56.4 Glucose Level 94 mg/dL (70-99) Calcium Level 8.5 mg/dL (8.5-10.1) Laboratory Tests Test 07/20/16 09:56 07/21/16 07:25 07/21/16 08:00 Glucose (Fingerstick) 138 mg/dL (70-99) 95 mg/dL (70-99) White Blood Count 7.7 x10^3/uL (4.0-11.0) Red Blood Count 2.50 x10^6/uL (3.50-5.40) Hemoglobin 8.7 g/dL (12.0-15.5) Hematocrit 27.1 % (36.0-47.0) Mean Corpuscular Volume 108 fL (79-100) Mean Corpuscular Hemoglobin 35 pg (25-35) Mean Corpuscular Hemoglobin Concent 32 g/dL (31-37) Red Cell Distribution Width 21.9 % (11.5-14.5) Platelet Count 139 x10^3/uL (140-400) Neutrophils (%) (Auto) 72 % (31-73) Lymphocytes (%) (Auto) 16 % (24-48) Monocytes (%) (Auto) 10 % (0-9) Eosinophils (%) (Auto) 1 % (0-3) Basophils (%) (Auto) 1 % (0-3) Neutrophils # (Auto) 5.6 x10^3uL (1.8-7.7) Lymphocytes # (Auto) 1.3 x10^3/uL (1.0-4.8) Monocytes # (Auto) 0.7 x10^3/uL (0.0-1.1) Eosinophils # (Auto) 0.1 x10^3/uL (0.0-0.7) Basophils # (Auto) 0.0 x10^3/uL (0.0-0.2) Sodium Level 146 mmol/L (136-145) Potassium Level 3.2 mmol/L (3.5-5.1) Chloride Level 99 mmol/L (98-107) Carbon Dioxide Level > 45 mmol/L (21-32) Anion Gap 2 (6-14) Blood Urea Nitrogen 22 mg/dL (7-20) Creatinine 1.0 mg/dL (0.6-1.0) Estimated GFR (Cockcroft-Gault) 56.4 Glucose Level 94 mg/dL (70-99) Calcium Level 8.5 mg/dL (8.5-10.1) Medications Active Scripts Medications Dose Route/Sig Max Daily Dose Days Date Category Lipitor (Atorvastatin Calcium) 20 Mg Tablet 20 Mg PO HS 07/18/16 Reported Zyrtec (Cetirizine Hcl) 10 Mg Tablet 1 Tab PO DAILY 07/18/16 Reported Fluticasone Propionate Nasal [place] (Fluticasone Propionate) 16 Gm [place].susp 2 [place] NS DAILY 07/18/16 Reported Lasix (Furosemide) 40 Mg Tablet 1 Tab PO DAILY 07/18/16 Reported Folic Acid 1 Mg Tablet 2 Tab PO DAILY 07/18/16 Reported Ventolin Hfa Inhaler (Albuterol Sulfate) 18 Gm Hfa.aer.ad 2 Puff INH QID 07/18/16 Reported Leflunomide 20 Mg Tablet 20 Mg PO DAILY 07/18/16 Reported Metoprolol Succinate ( Xl ) (Metoprolol Succinate) 25 Mg Tab.er.24h 0.5 Tab PO DAILY 07/18/16 Reported Levothyroxine Sodium 112 Mcg Tablet 112 Mcg PO DAILY 04/19/13 Reported Diflunisal 500 Mg Tablet 500 Mg PO BID 04/19/13 Reported Sulfasalazine 500 Mg Tablet 1,000 Mg PO BID 04/19/13 Reported Prednisone 1 Mg Tablet 1 Mg PO QID 04/19/13 Reported Comments cxr reviewed, cm, no infilt Impression . 1. Acute on chronic hypoxic and hypercapnic respiratory failure. This has multifactorial etiologies and includes combination of acute bronchitis, hypoventilation from the use of benzodiazepines and narcotics and possible cor pulmonale. She does have lower extremity edema. 2. Underlying severe chronic obstructive pulmonary disease with chronic respiratory failure, now with acute respiratory failure. 3. History of rheumatoid arthritis, on chronic steroids and methotrexate. 4. Suspected acute bronchitis. 5. Chronic benzodiazepine and narcotic use. She uses oxycodone and diazepam regularly, which may have contributed to her encephalopathy. 6. Acute encephalopathy related to medication effect and also hypercapnia. Plan . 1. BiPAP prn during day., cont at night. setting reviewed, 2. Pt wants her pain meds for RA. avoid oversedation 3. empiric antibiotic. 4. prn diuresis, monitor k, cr. 5. Minimize the use of home narcotics and benzodiazepines. 6. Continue her steroids and methotrexate for rheumatoid arthritis. 7. DVT prophylaxis. 8. IS Discussed with RN, pt CECI ZAYAS MD July 21, 2016 09:31
[2016-07-21] MEDS: ENOXAPARIN 40 MG/0.4 ML SYRINGE. SQ SCH (13:19)
[2016-07-21] MEDS: ALBUTEROL SULFATE 2.5 MG/3 ML NEBU. NEB PRN (17:46)
[2016-07-21] MEDS: ACETAMINOPHEN 325 MG TABLET. PO PRN (18:06)
[2016-07-21] MEDS: ATORVASTATIN CALCIUM 20 MG TABLET PO SCH (19:57)
[2016-07-21] MEDS: LORazepam 1 MG TABLET PO PRN (19:57)
[2016-07-22] MEDS: oxyCODONE/APAP 5/325 1 TAB TABLET PO PRN ×2 (01:08→13:08)
[2016-07-22 03:00] VITALS: BP 126/66
[2016-07-22 05:02] LABS: BASO # 0.1 x10^3/uL (0.0-0.2); BASO % 1 % (0-3); EOS % 1 % (0-3); HEMATOCRIT 28.2 % (36.0-47.0); HEMOGLOBIN 9.3 g/dL (12.0-15.5); LYMPH # 1.1 x10^3/uL (1.0-4.8); LYMPH % 11 % (24-48); MEAN CORPUSCULAR HEMOGLOBIN 35 pg (25-35); MEAN CORPUSCULAR HGB CONC 33 g/dL (31-37); MEAN CORPUSCULAR VOLUME 107 fL (79-100); MONO % 9 % (0-9); NEUT % 78 % (31-73); PLATELET COUNT 172 x10^3/uL (140-400); RED BLOOD COUNT 2.64 x10^6/uL (3.50-5.40); RED CELL DISTRIBUTION WIDTH 21.3 % (11.5-14.5); WHITE BLOOD COUNT 9.9 x10^3/uL (4.0-11.0)
[2016-07-22 05:21] LABS: CALCIUM 8.8 mg/dL (8.5-10.1); CREATININE 0.7 mg/dL (0.6-1.0); GFR 85.1; POTASSIUM 3.4 mmol/L (3.5-5.1)
[2016-07-22] MEDS: LEVOTHYROXINE 112 MCG TABLET PO SCH (06:53)
[2016-07-22] MEDS: IPRATRPIUM/ALBUTEROL 0.5/2.5MG 3 ML NEBU. NEB SCH ×4 (07:09→19:24)
[2016-07-22 07:25] VITALS: BP 101/55
[2016-07-22] MEDS: LORazepam 1 MG TABLET PO PRN (08:38)
[2016-07-22] MEDS: FOLIC ACID 1 MG TABLET. PO SCH (08:38)
[2016-07-22] MEDS: CETIRIZINE HCL 10 MG TABLET. PO SCH (08:38)
[2016-07-22] MEDS: METOPROLOL SUCC 24HR ER 25 MG TAB.ER.24H. PO SCH (08:38)
[2016-07-22] MEDS: FUROSEMIDE 40 MG TABLET. PO SCH (08:38)
[2016-07-22] MEDS: SALSALATE 750 MG PO SCH ×2 (08:39→20:39)
[2016-07-22] MEDS: sulfaSALAzine 500 MG TABLET PO SCH ×2 (08:39→20:40)
[2016-07-22] MEDS: LEFLUNOMIDE 10 MG TABLET. PO SCH (08:39)
[2016-07-22] MEDS: HYDROXYCHLOROQUINE 200 MG TABLET PO SCH ×2 (08:39→20:40)
[2016-07-22] MEDS: predniSONE 1 MG TABLET PO SCH ×4 (08:39→20:40)
[2016-07-22] MEDS: FLUTICASONE 50MCG/NASAL SPRAY 16GM BOTTLE. NS SCH (08:40)
--- NOTE | 2016-07-22 09:47 | PDOC ---
PULMONARY PROGRESS NOTES Subjective on BIPAP desats w o it, has back pain, sob is better, has cough. Vitals Vital Signs Date Time Temp Pulse Resp B/P (MAP) Pulse Ox O2 Delivery O2 Flow Rate FiO2 07/22/16 08:38 114 111/63 07/22/16 07:25 97.5 16 94 Room Air 97.5 07/22/16 07:11 4.0 Comments ros as mentioned as above other sys otherwise neg ROS: No Nausea General: Alert, No acute distress HEENT: Other (nc at perrl, shallow oropharynx nose clear) Lungs: Crackles, Other (decrease bs) Cardiovascular: S1, S2 Abdomen: Soft, Non-tender, Other (no mass) Neuro Exam: Alert Extremities: Other (trace edema) Skin: Warm Labs Laboratory Tests Test 07/20/16 09:56 07/21/16 07:25 07/21/16 08:00 07/22/16 04:40 Glucose (Fingerstick) 138 mg/dL (70-99) 95 mg/dL (70-99) White Blood Count 7.7 x10^3/uL (4.0-11.0) 9.9 x10^3/uL (4.0-11.0) Red Blood Count 2.50 x10^6/uL (3.50-5.40) 2.64 x10^6/uL (3.50-5.40) Hemoglobin 8.7 g/dL (12.0-15.5) 9.3 g/dL (12.0-15.5) Hematocrit 27.1 % (36.0-47.0) 28.2 % (36.0-47.0) Mean Corpuscular Volume 108 fL (79-100) 107 fL (79-100) Mean Corpuscular Hemoglobin 35 pg (25-35) 35 pg (25-35) Mean Corpuscular Hemoglobin Concent 32 g/dL (31-37) 33 g/dL (31-37) Red Cell Distribution Width 21.9 % (11.5-14.5) 21.3 % (11.5-14.5) Platelet Count 139 x10^3/uL (140-400) 172 x10^3/uL (140-400) Neutrophils (%) (Auto) 72 % (31-73) 78 % (31-73) Lymphocytes (%) (Auto) 16 % (24-48) 11 % (24-48) Monocytes (%) (Auto) 10 % (0-9) 9 % (0-9) Eosinophils (%) (Auto) 1 % (0-3) 1 % (0-3) Basophils (%) (Auto) 1 % (0-3) 1 % (0-3) Neutrophils # (Auto) 5.6 x10^3uL (1.8-7.7) 7.7 x10^3uL (1.8-7.7) Lymphocytes # (Auto) 1.3 x10^3/uL (1.0-4.8) 1.1 x10^3/uL (1.0-4.8) Monocytes # (Auto) 0.7 x10^3/uL (0.0-1.1) 0.9 x10^3/uL (0.0-1.1) Eosinophils # (Auto) 0.1 x10^3/uL (0.0-0.7) 0.0 x10^3/uL (0.0-0.7) Basophils # (Auto) 0.0 x10^3/uL (0.0-0.2) 0.1 x10^3/uL (0.0-0.2) Sodium Level 146 mmol/L (136-145) 141 mmol/L (136-145) Potassium Level 3.2 mmol/L (3.5-5.1) 3.4 mmol/L (3.5-5.1) Chloride Level 99 mmol/L (98-107) 92 mmol/L (98-107) Carbon Dioxide Level > 45 mmol/L (21-32) 44 mmol/L (21-32) Anion Gap 2 (6-14) 5 (6-14) Blood Urea Nitrogen 22 mg/dL (7-20) 16 mg/dL (7-20) Creatinine 1.0 mg/dL (0.6-1.0) 0.7 mg/dL (0.6-1.0) Estimated GFR (Cockcroft-Gault) 56.4 85.1 Glucose Level 94 mg/dL (70-99) 97 mg/dL (70-99) Calcium Level 8.5 mg/dL (8.5-10.1) 8.8 mg/dL (8.5-10.1) Laboratory Tests Test 07/22/16 04:40 White Blood Count 9.9 x10^3/uL (4.0-11.0) Red Blood Count 2.64 x10^6/uL (3.50-5.40) Hemoglobin 9.3 g/dL (12.0-15.5) Hematocrit 28.2 % (36.0-47.0) Mean Corpuscular Volume 107 fL (79-100) Mean Corpuscular Hemoglobin 35 pg (25-35) Mean Corpuscular Hemoglobin Concent 33 g/dL (31-37) Red Cell Distribution Width 21.3 % (11.5-14.5) Platelet Count 172 x10^3/uL (140-400) Neutrophils (%) (Auto) 78 % (31-73) Lymphocytes (%) (Auto) 11 % (24-48) Monocytes (%) (Auto) 9 % (0-9) Eosinophils (%) (Auto) 1 % (0-3) Basophils (%) (Auto) 1 % (0-3) Neutrophils # (Auto) 7.7 x10^3uL (1.8-7.7) Lymphocytes # (Auto) 1.1 x10^3/uL (1.0-4.8) Monocytes # (Auto) 0.9 x10^3/uL (0.0-1.1) Eosinophils # (Auto) 0.0 x10^3/uL (0.0-0.7) Basophils # (Auto) 0.1 x10^3/uL (0.0-0.2) Sodium Level 141 mmol/L (136-145) Potassium Level 3.4 mmol/L (3.5-5.1) Chloride Level 92 mmol/L (98-107) Carbon Dioxide Level 44 mmol/L (21-32) Anion Gap 5 (6-14) Blood Urea Nitrogen 16 mg/dL (7-20) Creatinine 0.7 mg/dL (0.6-1.0) Estimated GFR (Cockcroft-Gault) 85.1 Glucose Level 97 mg/dL (70-99) Calcium Level 8.8 mg/dL (8.5-10.1) Medications Active Scripts Medications Dose Route/Sig Max Daily Dose Days Date Category Lipitor (Atorvastatin Calcium) 20 Mg Tablet 20 Mg PO HS 07/18/16 Reported Zyrtec (Cetirizine Hcl) 10 Mg Tablet 1 Tab PO DAILY 07/18/16 Reported Fluticasone Propionate Nasal [place] (Fluticasone Propionate) 16 Gm B[place].susp 2 [place] NS DAILY 07/18/16 Reported Lasix (Furosemide) 40 Mg Tablet 1 Tab PO DAILY 07/18/16 Reported Folic Acid 1 Mg Tablet 2 Tab PO DAILY 07/18/16 Reported Ventolin Hfa Inhaler (Albuterol Sulfate) 18 Gm Hfa.aer.ad 2 Puff INH QID 07/18/16 Reported Leflunomide 20 Mg Tablet 20 Mg PO DAILY 07/18/16 Reported Metoprolol Succinate ( Xl ) (Metoprolol Succinate) 25 Mg Tab.er.24h 0.5 Tab PO DAILY 07/18/16 Reported Levothyroxine Sodium 112 Mcg Tablet 112 Mcg PO DAILY 04/19/13 Reported Diflunisal 500 Mg Tablet 500 Mg PO BID 04/19/13 Reported Sulfasalazine 500 Mg Tablet 1,000 Mg PO BID 04/19/13 Reported Prednisone 1 Mg Tablet 1 Mg PO QID 04/19/13 Reported Comments cxr reviewed, cm, no infilt Impression . 1. Acute on chronic hypoxic and hypercapnic respiratory failure. This has multifactorial etiologies and includes combination of acute bronchitis, hypoventilation from the use of benzodiazepines and narcotics and possible cor pulmonale. She does have lower extremity edema. 2. Underlying severe chronic obstructive pulmonary disease with chronic respiratory failure, now with acute respiratory failure. 3. History of rheumatoid arthritis, on chronic steroids and methotrexate. 4. Suspected acute bronchitis. 5. Chronic benzodiazepine and narcotic use. She uses oxycodone and diazepam regularly, which may have contributed to her encephalopathy. 6. Acute encephalopathy related to medication effect and also hypercapnia. Plan . 1. BiPAP prn during day., cont at night. i personally changed setting to 23/10 , rr 10, will do cxr to eval her hypoxemia 2. Pt wants her pain meds for RA. avoid oversedation 3. empiric antibiotic. 4. lasix 20 mg iv now, monitor k, cr. 5. Minimize the use of home narcotics and benzodiazepines. 6. Continue her steroids and methotrexate for rheumatoid arthritis. 7. DVT prophylaxis. 8. IS 9. bronchodilator, add ics Discussed with RN, pt CECI ZAYAS MD July 22, 2016 09:47
--- NOTE | 2016-07-22 10:13 | RAD ---
Examination: Single frontal view the chest History: History of hypoxemia Comparison: 07/18/2016 Findings: Mild cardiomegaly is identified. There is no acute infiltrate or visualized pneumothorax identified. Impression: No acute cardiomegaly findings.
[2016-07-22 11:00] VITALS: BP 132/66
[2016-07-22] MEDS: BUDESONIDE 0.5 MG/2 ML NEBU. NEB SCH ×2 (11:00→19:24)
[2016-07-22] MEDS: ENOXAPARIN 40 MG/0.4 ML SYRINGE. SQ SCH (13:11)
[2016-07-22] MEDS ORDERED: KCL PER PROTOCOL MC PRN (14:15)
[2016-07-22] MEDS ORDERED: FUROSEMIDE 20 MG/2 ML VIAL. IVP ONE (14:30)
[2016-07-22 15:00] VITALS: BP_SYST 109; BP_SYST 124; BP_DIAS 40; BP_DIAS 66
[2016-07-22] MEDS ORDERED: POTASSIUM CHLORIDE 20 MEQ/15 ML ORAL LIQUID. FT ONE ×2 (15:00→18:30)
[2016-07-22 17:58] LABS: BLOOD UREA NITROGEN 14 mg/dL (7-20); CHLORIDE 90 mmol/L (98-107); CREATININE 0.9 mg/dL (0.6-1.0); GFR 63.7; GLUCOSE 131 mg/dL (70-99); POTASSIUM 3.4 mmol/L (3.5-5.1); SODIUM 139 mmol/L (136-145)
[2016-07-22 18:13] LABS: ANION GAP 4 (6-14); CALCIUM 8.7 mg/dL (8.5-10.1); CARBON DIOXIDE > 45 mmol/L (21-32)
[2016-07-22] MEDS: PROCHLORPERAZINE 10 MG/2 ML VIAL. IV PRN (18:36)
[2016-07-22 19:00] VITALS: BP 109/64
[2016-07-22] MEDS: ATORVASTATIN CALCIUM 20 MG TABLET PO SCH (20:39)
--- NOTE | 2016-07-22 20:53 | PDOC ---
PROGRESS NOTES Chief Complaint Chief Complaint Acute on chronic hypoxic, hypercapnic respir failure ASSESSMENT AND PLAN: 1. COPD exacerbation: improving, off BiPAP (on at night only). not on high dose steroids for now. echo nl with nl pA pressure; cautious diuresis as tolerated 2. Acute bronchitis: cont levaquin empirically 3. AMS: suspected inadvertent drug O/D with benzos and narcotics at home. minimize here; possible contribution by drug induced hypoventilation 4. RA: on chronic low dose steroids, methotrexate and plaquenil. continue 5. DVT prophylaxis. History of Present Illness History of Present Illness breathing easy with NC only. pain overall Vitals Vitals Vital Signs Date Time Temp Pulse Resp B/P (MAP) Pulse Ox O2 Delivery O2 Flow Rate FiO2 07/22/16 19:27 98 Simple Mask 5.0 07/22/16 19:00 97.7 105 20 109/64 (79) 97.7 Physical Exam General: Alert, Cooperative, No acute distress Heart: Regular rate Lungs: Clear, Other (decrease bs) Abdomen: Normal bowel sounds, No tenderness Extremities: No edema Skin: No rashes Labs LABS Laboratory Tests Test 07/22/16 04:40 07/22/16 17:25 White Blood Count 9.9 x10^3/uL (4.0-11.0) Red Blood Count 2.64 x10^6/uL (3.50-5.40) Hemoglobin 9.3 g/dL (12.0-15.5) Hematocrit 28.2 % (36.0-47.0) Mean Corpuscular Volume 107 fL (79-100) Mean Corpuscular Hemoglobin 35 pg (25-35) Mean Corpuscular Hemoglobin Concent 33 g/dL (31-37) Red Cell Distribution Width 21.3 % (11.5-14.5) Platelet Count 172 x10^3/uL (140-400) Neutrophils (%) (Auto) 78 % (31-73) Lymphocytes (%) (Auto) 11 % (24-48) Monocytes (%) (Auto) 9 % (0-9) Eosinophils (%) (Auto) 1 % (0-3) Basophils (%) (Auto) 1 % (0-3) Neutrophils # (Auto) 7.7 x10^3uL (1.8-7.7) Lymphocytes # (Auto) 1.1 x10^3/uL (1.0-4.8) Monocytes # (Auto) 0.9 x10^3/uL (0.0-1.1) Eosinophils # (Auto) 0.0 x10^3/uL (0.0-0.7) Basophils # (Auto) 0.1 x10^3/uL (0.0-0.2) Sodium Level 141 mmol/L (136-145) 139 mmol/L (136-145) Potassium Level 3.4 mmol/L (3.5-5.1) 3.4 mmol/L (3.5-5.1) Chloride Level 92 mmol/L (98-107) 90 mmol/L (98-107) Carbon Dioxide Level 44 mmol/L (21-32) > 45 mmol/L (21-32) Anion Gap 5 (6-14) 4 (6-14) Blood Urea Nitrogen 16 mg/dL (7-20) 14 mg/dL (7-20) Creatinine 0.7 mg/dL (0.6-1.0) 0.9 mg/dL (0.6-1.0) Estimated GFR (Cockcroft-Gault) 85.1 63.7 Glucose Level 97 mg/dL (70-99) 131 mg/dL (70-99) Calcium Level 8.8 mg/dL (8.5-10.1) 8.7 mg/dL (8.5-10.1) JESSICA RODNEY MD July 22, 2016 20:53
[2016-07-22 21:18] LABS: BLOOD UREA NITROGEN 14 mg/dL (7-20); CALCIUM 8.8 mg/dL (8.5-10.1); CHLORIDE 92 mmol/L (98-107); CREATININE 0.9 mg/dL (0.6-1.0); GFR 63.7; GLUCOSE 148 mg/dL (70-99); POTASSIUM 4.7 mmol/L (3.5-5.1); SODIUM 138 mmol/L (136-145)
[2016-07-22 21:19] LABS: CARBON DIOXIDE > 45 mmol/L (21-32)
[2016-07-22 23:00] VITALS: BP 141/45
[2016-07-23 03:03] VITALS: BP 97/64
[2016-07-23] MEDS: LEVOTHYROXINE 112 MCG TABLET PO SCH (06:11)
[2016-07-23 06:31] LABS: BASO % 0 % (0-3); EOS % 0 % (0-3); HEMOGLOBIN 8.6 g/dL (12.0-15.5); LYMPH # 0.8 x10^3/uL (1.0-4.8); LYMPH % 10 % (24-48); MEAN CORPUSCULAR HEMOGLOBIN 34 pg (25-35); MEAN CORPUSCULAR HGB CONC 32 g/dL (31-37); MEAN CORPUSCULAR VOLUME 107 fL (79-100); MONO % 12 % (0-9); NEUT % 78 % (31-73); PLATELET COUNT 148 x10^3/uL (140-400); RED BLOOD COUNT 2.53 x10^6/uL (3.50-5.40); RED CELL DISTRIBUTION WIDTH 21.1 % (11.5-14.5); WHITE BLOOD COUNT 8.2 x10^3/uL (4.0-11.0)
[2016-07-23 06:49] LABS: BLOOD UREA NITROGEN 12 mg/dL (7-20); CALCIUM 8.2 mg/dL (8.5-10.1); CHLORIDE 93 mmol/L (98-107); CREATININE 0.7 mg/dL (0.6-1.0); GFR 85.1; GLUCOSE 84 mg/dL (70-99); POTASSIUM 4.1 mmol/L (3.5-5.1); SODIUM 141 mmol/L (136-145)
[2016-07-23 06:50] LABS: CARBON DIOXIDE > 45 mmol/L (21-32)
[2016-07-23 07:00] VITALS: BP 128/69
[2016-07-23] MEDS: IPRATRPIUM/ALBUTEROL 0.5/2.5MG 3 ML NEBU. NEB SCH ×4 (07:57→19:08)
[2016-07-23] MEDS: BUDESONIDE 0.5 MG/2 ML NEBU. NEB SCH ×3 (07:57→19:09)
[2016-07-23] MEDS: FLUTICASONE 50MCG/NASAL SPRAY 16GM BOTTLE. NS SCH (08:34)
[2016-07-23] MEDS: CETIRIZINE HCL 10 MG TABLET. PO SCH (08:35)
[2016-07-23] MEDS: METOPROLOL SUCC 24HR ER 25 MG TAB.ER.24H. PO SCH (08:35)
[2016-07-23] MEDS: FUROSEMIDE 40 MG TABLET. PO SCH (08:35)
[2016-07-23] MEDS: HYDROXYCHLOROQUINE 200 MG TABLET PO SCH ×2 (08:35→20:13)
[2016-07-23] MEDS: sulfaSALAzine 500 MG TABLET PO SCH ×2 (08:35→20:13)
[2016-07-23] MEDS: LEFLUNOMIDE 10 MG TABLET. PO SCH (08:36)
[2016-07-23] MEDS: predniSONE 1 MG TABLET PO SCH ×4 (08:36→20:13)
[2016-07-23] MEDS: FOLIC ACID 1 MG TABLET. PO SCH (08:36)
[2016-07-23] MEDS: SALSALATE 750 MG PO SCH ×2 (08:36→20:13)
--- NOTE | 2016-07-23 10:10 | PDOC ---
PULMONARY PROGRESS NOTES Subjective on 02, on BIPAP overnight, has neck pain, sob , has cough. Vitals Vital Signs Date Time Temp Pulse Resp B/P (MAP) Pulse Ox O2 Delivery O2 Flow Rate FiO2 07/23/16 08:35 124 128/69 07/23/16 07:59 94 Simple Mask 5.0 07/23/16 07:00 96.8 20 96.8 Comments ros as mentioned as above other sys otherwise neg ROS: No Nausea General: Alert, No acute distress HEENT: Other (nc at perrl, shallow oropharynx nose clear) Lungs: Clear, Other (decrease bs) Cardiovascular: S1, S2 Abdomen: Soft, Non-tender, Other (no mass) Neuro Exam: Alert Extremities: Other (trace edema) Skin: Warm Labs Laboratory Tests Test 07/22/16 04:40 07/22/16 17:25 07/22/16 20:49 07/23/16 05:55 White Blood Count 9.9 x10^3/uL (4.0-11.0) 8.2 x10^3/uL (4.0-11.0) Red Blood Count 2.64 x10^6/uL (3.50-5.40) 2.53 x10^6/uL (3.50-5.40) Hemoglobin 9.3 g/dL (12.0-15.5) 8.6 g/dL (12.0-15.5) Hematocrit 28.2 % (36.0-47.0) 27.0 % (36.0-47.0) Mean Corpuscular Volume 107 fL (79-100) 107 fL (79-100) Mean Corpuscular Hemoglobin 35 pg (25-35) 34 pg (25-35) Mean Corpuscular Hemoglobin Concent 33 g/dL (31-37) 32 g/dL (31-37) Red Cell Distribution Width 21.3 % (11.5-14.5) 21.1 % (11.5-14.5) Platelet Count 172 x10^3/uL (140-400) 148 x10^3/uL (140-400) Neutrophils (%) (Auto) 78 % (31-73) 78 % (31-73) Lymphocytes (%) (Auto) 11 % (24-48) 10 % (24-48) Monocytes (%) (Auto) 9 % (0-9) 12 % (0-9) Eosinophils (%) (Auto) 1 % (0-3) 0 % (0-3) Basophils (%) (Auto) 1 % (0-3) 0 % (0-3) Neutrophils # (Auto) 7.7 x10^3uL (1.8-7.7) 6.4 x10^3uL (1.8-7.7) Lymphocytes # (Auto) 1.1 x10^3/uL (1.0-4.8) 0.8 x10^3/uL (1.0-4.8) Monocytes # (Auto) 0.9 x10^3/uL (0.0-1.1) 1.0 x10^3/uL (0.0-1.1) Eosinophils # (Auto) 0.0 x10^3/uL (0.0-0.7) 0.0 x10^3/uL (0.0-0.7) Basophils # (Auto) 0.1 x10^3/uL (0.0-0.2) 0.0 x10^3/uL (0.0-0.2) Sodium Level 141 mmol/L (136-145) 139 mmol/L (136-145) 138 mmol/L (136-145) 141 mmol/L (136-145) Potassium Level 3.4 mmol/L (3.5-5.1) 3.4 mmol/L (3.5-5.1) 4.7 mmol/L (3.5-5.1) 4.1 mmol/L (3.5-5.1) Chloride Level 92 mmol/L (98-107) 90 mmol/L (98-107) 92 mmol/L (98-107) 93 mmol/L (98-107) Carbon Dioxide Level 44 mmol/L (21-32) > 45 mmol/L (21-32) > 45 mmol/L (21-32) > 45 mmol/L (21-32) Anion Gap 5 (6-14) 4 (6-14) (6-14) (6-14) Blood Urea Nitrogen 16 mg/dL (7-20) 14 mg/dL (7-20) 14 mg/dL (7-20) 12 mg/dL (7-20) Creatinine 0.7 mg/dL (0.6-1.0) 0.9 mg/dL (0.6-1.0) 0.9 mg/dL (0.6-1.0) 0.7 mg/dL (0.6-1.0) Estimated GFR (Cockcroft-Gault) 85.1 63.7 63.7 85.1 Glucose Level 97 mg/dL (70-99) 131 mg/dL (70-99) 148 mg/dL (70-99) 84 mg/dL (70-99) Calcium Level 8.8 mg/dL (8.5-10.1) 8.7 mg/dL (8.5-10.1) 8.8 mg/dL (8.5-10.1) 8.2 mg/dL (8.5-10.1) Laboratory Tests Test 07/22/16 17:25 07/22/16 20:49 07/23/16 05:55 Sodium Level 139 mmol/L (136-145) 138 mmol/L (136-145) 141 mmol/L (136-145) Potassium Level 3.4 mmol/L (3.5-5.1) 4.7 mmol/L (3.5-5.1) 4.1 mmol/L (3.5-5.1) Chloride Level 90 mmol/L (98-107) 92 mmol/L (98-107) 93 mmol/L (98-107) Carbon Dioxide Level > 45 mmol/L (21-32) > 45 mmol/L (21-32) > 45 mmol/L (21-32) Anion Gap 4 (6-14) (6-14) (6-14) Blood Urea Nitrogen 14 mg/dL (7-20) 14 mg/dL (7-20) 12 mg/dL (7-20) Creatinine 0.9 mg/dL (0.6-1.0) 0.9 mg/dL (0.6-1.0) 0.7 mg/dL (0.6-1.0) Estimated GFR (Cockcroft-Gault) 63.7 63.7 85.1 Glucose Level 131 mg/dL (70-99) 148 mg/dL (70-99) 84 mg/dL (70-99) Calcium Level 8.7 mg/dL (8.5-10.1) 8.8 mg/dL (8.5-10.1) 8.2 mg/dL (8.5-10.1) White Blood Count 8.2 x10^3/uL (4.0-11.0) Red Blood Count 2.53 x10^6/uL (3.50-5.40) Hemoglobin 8.6 g/dL (12.0-15.5) Hematocrit 27.0 % (36.0-47.0) Mean Corpuscular Volume 107 fL (79-100) Mean Corpuscular Hemoglobin 34 pg (25-35) Mean Corpuscular Hemoglobin Concent 32 g/dL (31-37) Red Cell Distribution Width 21.1 % (11.5-14.5) Platelet Count 148 x10^3/uL (140-400) Neutrophils (%) (Auto) 78 % (31-73) Lymphocytes (%) (Auto) 10 % (24-48) Monocytes (%) (Auto) 12 % (0-9) Eosinophils (%) (Auto) 0 % (0-3) Basophils (%) (Auto) 0 % (0-3) Neutrophils # (Auto) 6.4 x10^3uL (1.8-7.7) Lymphocytes # (Auto) 0.8 x10^3/uL (1.0-4.8) Monocytes # (Auto) 1.0 x10^3/uL (0.0-1.1) Eosinophils # (Auto) 0.0 x10^3/uL (0.0-0.7) Basophils # (Auto) 0.0 x10^3/uL (0.0-0.2) Medications Active Scripts Medications Dose Route/Sig Max Daily Dose Days Date Category Lipitor (Atorvastatin Calcium) 20 Mg Tablet 20 Mg PO HS 07/18/16 Reported Zyrtec (Cetirizine Hcl) 10 Mg Tablet 1 Tab PO DAILY 07/18/16 Reported Fluticasone Propionate Nasal Bailey (Fluticasone Propionate) 16 Gm Bailey.susp 2 Bailey NS DAILY 07/18/16 Reported Lasix (Furosemide) 40 Mg Tablet 1 Tab PO DAILY 07/18/16 Reported Folic Acid 1 Mg Tablet 2 Tab PO DAILY 07/18/16 Reported Ventolin Hfa Inhaler (Albuterol Sulfate) 18 Gm Hfa.aer.ad 2 Puff INH QID 07/18/16 Reported Leflunomide 20 Mg Tablet 20 Mg PO DAILY 07/18/16 Reported Metoprolol Succinate ( Xl ) (Metoprolol Succinate) 25 Mg Tab.er.24h 0.5 Tab PO DAILY 07/18/16 Reported Levothyroxine Sodium 112 Mcg Tablet 112 Mcg PO DAILY 04/19/13 Reported Diflunisal 500 Mg Tablet 500 Mg PO BID 04/19/13 Reported Sulfasalazine 500 Mg Tablet 1,000 Mg PO BID 04/19/13 Reported Prednisone 1 Mg Tablet 1 Mg PO QID 04/19/13 Reported Comments cxr reviewed, cm, no infilt Impression . 1. Acute on chronic hypoxic and hypercapnic respiratory failure. This has multifactorial etiologies and includes combination of acute bronchitis, hypoventilation from the use of benzodiazepines and narcotics and possible cor pulmonale. She does have lower extremity edema. 2. Underlying severe chronic obstructive pulmonary disease with chronic respiratory failure, now with acute respiratory failure. 3. History of rheumatoid arthritis, on chronic steroids and methotrexate. 4. Suspected acute bronchitis. 5. Chronic benzodiazepine and narcotic use. She uses oxycodone and diazepam regularly, which may have contributed to her encephalopathy. 6. Acute encephalopathy related to medication effect and also hypercapnia. Plan . 1. BiPAP prn during day., cont at night. 2. Pt wants her pain meds for RA. avoid oversedation 3. empiric antibiotic. 4. keep I<O, lasix prn, monitor k, cr. 5. Minimize the use of home narcotics and benzodiazepines. 6. Continue her steroids and methotrexate for rheumatoid arthritis. 7. DVT prophylaxis. 8. IS 9. bronchodilator, ics Discussed with RN, pt CECI ZAYAS MD July 23, 2016 10:10
[2016-07-23 11:00] VITALS: BP 113/48
[2016-07-23] MEDS: ENOXAPARIN 40 MG/0.4 ML SYRINGE. SQ SCH (11:11)
[2016-07-23] MEDS: ACETAMINOPHEN 325 MG TABLET. PO PRN ×2 (11:12→20:13)
--- NOTE | 2016-07-23 11:37 | PDOC ---
PROGRESS NOTES Chief Complaint Chief Complaint Acute on chronic hypoxic, hypercapnic respir failure ASSESSMENT AND PLAN: 1. COPD exacerbation: improving very slowly. off BiPAP (on at night only, PRN during day). not on high dose steroids for now. echo nl with nl pA pressure ; cautious diuresis as tolerated 2. Acute bronchitis: cont levaquin empirically 3. AMS: suspected inadvertent drug O/D with benzos and narcotics at home. minimize here; possible contribution by drug induced hypoventilation 4. RA: on chronic low dose steroids, methotrexate and plaquenil. continue 5. DVT prophylaxis. History of Present Illness History of Present Illness on NC, subjectively SOB, but good pOx. gen pain Vitals Vitals Vital Signs Date Time Temp Pulse Resp B/P (MAP) Pulse Ox O2 Delivery O2 Flow Rate FiO2 07/23/16 08:35 124 128/69 07/23/16 08:00 Nasal Cannula 6.0 07/23/16 07:59 94 07/23/16 07:00 96.8 20 96.8 Physical Exam General: Alert, Cooperative, No acute distress Heart: Regular rate Lungs: Clear, Other (decrease bs) Abdomen: Normal bowel sounds, No tenderness Extremities: No edema Skin: No rashes Labs LABS Laboratory Tests Test 07/22/16 17:25 07/22/16 20:49 07/23/16 05:55 Sodium Level 139 mmol/L (136-145) 138 mmol/L (136-145) 141 mmol/L (136-145) Potassium Level 3.4 mmol/L (3.5-5.1) 4.7 mmol/L (3.5-5.1) 4.1 mmol/L (3.5-5.1) Chloride Level 90 mmol/L (98-107) 92 mmol/L (98-107) 93 mmol/L (98-107) Carbon Dioxide Level > 45 mmol/L (21-32) > 45 mmol/L (21-32) > 45 mmol/L (21-32) Anion Gap 4 (6-14) (6-14) (6-14) Blood Urea Nitrogen 14 mg/dL (7-20) 14 mg/dL (7-20) 12 mg/dL (7-20) Creatinine 0.9 mg/dL (0.6-1.0) 0.9 mg/dL (0.6-1.0) 0.7 mg/dL (0.6-1.0) Estimated GFR (Cockcroft-Gault) 63.7 63.7 85.1 Glucose Level 131 mg/dL (70-99) 148 mg/dL (70-99) 84 mg/dL (70-99) Calcium Level 8.7 mg/dL (8.5-10.1) 8.8 mg/dL (8.5-10.1) 8.2 mg/dL (8.5-10.1) White Blood Count 8.2 x10^3/uL (4.0-11.0) Red Blood Count 2.53 x10^6/uL (3.50-5.40) Hemoglobin 8.6 g/dL (12.0-15.5) Hematocrit 27.0 % (36.0-47.0) Mean Corpuscular Volume 107 fL (79-100) Mean Corpuscular Hemoglobin 34 pg (25-35) Mean Corpuscular Hemoglobin Concent 32 g/dL (31-37) Red Cell Distribution Width 21.1 % (11.5-14.5) Platelet Count 148 x10^3/uL (140-400) Neutrophils (%) (Auto) 78 % (31-73) Lymphocytes (%) (Auto) 10 % (24-48) Monocytes (%) (Auto) 12 % (0-9) Eosinophils (%) (Auto) 0 % (0-3) Basophils (%) (Auto) 0 % (0-3) Neutrophils # (Auto) 6.4 x10^3uL (1.8-7.7) Lymphocytes # (Auto) 0.8 x10^3/uL (1.0-4.8) Monocytes # (Auto) 1.0 x10^3/uL (0.0-1.1) Eosinophils # (Auto) 0.0 x10^3/uL (0.0-0.7) Basophils # (Auto) 0.0 x10^3/uL (0.0-0.2) JESSICA RODNEY MD July 23, 2016 11:37
[2016-07-23 15:00] VITALS: BP 121/65
[2016-07-23 19:00] VITALS: BP 111/44
[2016-07-23] MEDS: ATORVASTATIN CALCIUM 20 MG TABLET PO SCH (20:13)
[2016-07-23 23:00] VITALS: BP 116/52
[2016-07-23] MEDS: oxyCODONE/APAP 5/325 1 TAB TABLET PO PRN (23:09)
[2016-07-24 03:00] VITALS: BP 131/65
[2016-07-24] MEDS: ALBUTEROL SULFATE 2.5 MG/3 ML NEBU. NEB PRN (03:46)
[2016-07-24 05:19] LABS: BASO # 0.1 x10^3/uL (0.0-0.2); BASO % 1 % (0-3); EOS % 0 % (0-3); HEMATOCRIT 28.4 % (36.0-47.0); LYMPH # 0.7 x10^3/uL (1.0-4.8); LYMPH % 9 % (24-48); MEAN CORPUSCULAR HEMOGLOBIN 34 pg (25-35); MEAN CORPUSCULAR HGB CONC 32 g/dL (31-37); MEAN CORPUSCULAR VOLUME 107 fL (79-100); MONO % 10 % (0-9); NEUT % 80 % (31-73); PLATELET COUNT 216 x10^3/uL (140-400); RED BLOOD COUNT 2.65 x10^6/uL (3.50-5.40); RED CELL DISTRIBUTION WIDTH 20.3 % (11.5-14.5); WHITE BLOOD COUNT 8.2 x10^3/uL (4.0-11.0)
[2016-07-24 05:27] LABS: CALCIUM 8.9 mg/dL (8.5-10.1); CREATININE 0.5 mg/dL (0.6-1.0); GFR 125.4; POTASSIUM 3.6 mmol/L (3.5-5.1)
[2016-07-24] MEDS: LEVOTHYROXINE 112 MCG TABLET PO SCH (06:08)
[2016-07-24] MEDS: ACETAMINOPHEN 325 MG TABLET. PO PRN ×2 (06:08→18:27)
[2016-07-24 07:00] VITALS: BP 118/32
[2016-07-24] MEDS: IPRATRPIUM/ALBUTEROL 0.5/2.5MG 3 ML NEBU. NEB SCH ×4 (07:36→19:11)
[2016-07-24] MEDS: BUDESONIDE 0.5 MG/2 ML NEBU. NEB SCH (07:36)
[2016-07-24] MEDS: SALSALATE 750 MG PO SCH ×2 (08:23→20:21)
[2016-07-24] MEDS: predniSONE 1 MG TABLET PO SCH ×4 (08:23→20:22)
[2016-07-24] MEDS: CETIRIZINE HCL 10 MG TABLET. PO SCH (08:23)
[2016-07-24] MEDS: FOLIC ACID 1 MG TABLET. PO SCH (08:23)
[2016-07-24] MEDS: FUROSEMIDE 40 MG TABLET. PO SCH (08:23)
[2016-07-24] MEDS: FLUTICASONE 50MCG/NASAL SPRAY 16GM BOTTLE. NS SCH (08:24)
[2016-07-24] MEDS: LEFLUNOMIDE 10 MG TABLET. PO SCH (08:24)
[2016-07-24] MEDS: HYDROXYCHLOROQUINE 200 MG TABLET PO SCH ×2 (08:24→20:22)
[2016-07-24] MEDS: sulfaSALAzine 500 MG TABLET PO SCH ×2 (08:24→20:21)
[2016-07-24] MEDS: METOPROLOL SUCC 24HR ER 25 MG TAB.ER.24H. PO SCH (08:28)
[2016-07-24 11:00] VITALS: BP 107/63
--- NOTE | 2016-07-24 12:05 | PDOC ---
PROGRESS NOTES Chief Complaint Chief Complaint Acute on chronic hypoxic, hypercapnic respir failure 1. COPD exacerbation: improving very slowly. BiPAP Hs, she feels she has BELINDA 2. Acute bronchitis: cont levaquin 3. AMS: suspected inadvertent drug O/D with benzos and narcotics at home. minimize here; possible contribution by drug induced hypoventilation 4. RA: on chronic low dose steroids, methotrexate and plaquenil. continue, pt disabled and has 2 full-time paid caregivers at home 5. DVT prophylaxis. History of Present Illness History of Present Illness on NC, subjectively SOB, but good pOx. feels stronger inhal steroid . echo nl with nl pA pressure; cautious diuresis as tolerated Vitals Vitals Vital Signs Date Time Temp Pulse Resp B/P (MAP) Pulse Ox O2 Delivery O2 Flow Rate FiO2 07/24/16 11:24 93 Nasal Cannula 5.0 07/24/16 08:28 114 119/42 07/24/16 07:00 98.1 20 98.1 Physical Exam General: Alert, Cooperative, No acute distress Heart: Regular rate Lungs: Clear, Other (decrease bs) Abdomen: Normal bowel sounds, No tenderness Extremities: No edema Skin: No rashes Labs LABS Laboratory Tests Test 07/24/16 04:15 White Blood Count 8.2 x10^3/uL (4.0-11.0) Red Blood Count 2.65 x10^6/uL (3.50-5.40) Hemoglobin 9.0 g/dL (12.0-15.5) Hematocrit 28.4 % (36.0-47.0) Mean Corpuscular Volume 107 fL (79-100) Mean Corpuscular Hemoglobin 34 pg (25-35) Mean Corpuscular Hemoglobin Concent 32 g/dL (31-37) Red Cell Distribution Width 20.3 % (11.5-14.5) Platelet Count 216 x10^3/uL (140-400) Neutrophils (%) (Auto) 80 % (31-73) Lymphocytes (%) (Auto) 9 % (24-48) Monocytes (%) (Auto) 10 % (0-9) Eosinophils (%) (Auto) 0 % (0-3) Basophils (%) (Auto) 1 % (0-3) Neutrophils # (Auto) 6.5 x10^3uL (1.8-7.7) Lymphocytes # (Auto) 0.7 x10^3/uL (1.0-4.8) Monocytes # (Auto) 0.8 x10^3/uL (0.0-1.1) Eosinophils # (Auto) 0.0 x10^3/uL (0.0-0.7) Basophils # (Auto) 0.1 x10^3/uL (0.0-0.2) Sodium Level 137 mmol/L (136-145) Potassium Level 3.6 mmol/L (3.5-5.1) Chloride Level 91 mmol/L (98-107) Carbon Dioxide Level 42 mmol/L (21-32) Anion Gap 4 (6-14) Blood Urea Nitrogen 10 mg/dL (7-20) Creatinine 0.5 mg/dL (0.6-1.0) Estimated GFR (Cockcroft-Gault) 125.4 Glucose Level 78 mg/dL (70-99) Calcium Level 8.9 mg/dL (8.5-10.1) Review of Systems Review of Systems no n.vd weakenss from marked RA Assessment and Plan Assessmemt and Plan Problems Medical Problems: (1) Acidosis Status: Acute (2) COPD (chronic obstructive pulmonary disease) Status: Acute Problems: Comment Review of Relevant I have reviewed the following items declan (where applicable) has been applied. Labs Laboratory Tests Test 07/22/16 17:25 07/22/16 20:49 07/23/16 05:55 07/24/16 04:15 Sodium Level 139 mmol/L (136-145) 138 mmol/L (136-145) 141 mmol/L (136-145) 137 mmol/L (136-145) Potassium Level 3.4 mmol/L (3.5-5.1) 4.7 mmol/L (3.5-5.1) 4.1 mmol/L (3.5-5.1) 3.6 mmol/L (3.5-5.1) Chloride Level 90 mmol/L (98-107) 92 mmol/L (98-107) 93 mmol/L (98-107) 91 mmol/L (98-107) Carbon Dioxide Level > 45 mmol/L (21-32) > 45 mmol/L (21-32) > 45 mmol/L (21-32) 42 mmol/L (21-32) Anion Gap 4 (6-14) (6-14) (6-14) 4 (6-14) Blood Urea Nitrogen 14 mg/dL (7-20) 14 mg/dL (7-20) 12 mg/dL (7-20) 10 mg/dL (7-20) Creatinine 0.9 mg/dL (0.6-1.0) 0.9 mg/dL (0.6-1.0) 0.7 mg/dL (0.6-1.0) 0.5 mg/dL (0.6-1.0) Estimated GFR (Cockcroft-Gault) 63.7 63.7 85.1 125.4 Glucose Level 131 mg/dL (70-99) 148 mg/dL (70-99) 84 mg/dL (70-99) 78 mg/dL (70-99) Calcium Level 8.7 mg/dL (8.5-10.1) 8.8 mg/dL (8.5-10.1) 8.2 mg/dL (8.5-10.1) 8.9 mg/dL (8.5-10.1) White Blood Count 8.2 x10^3/uL (4.0-11.0) 8.2 x10^3/uL (4.0-11.0) Red Blood Count 2.53 x10^6/uL (3.50-5.40) 2.65 x10^6/uL (3.50-5.40) Hemoglobin 8.6 g/dL (12.0-15.5) 9.0 g/dL (12.0-15.5) Hematocrit 27.0 % (36.0-47.0) 28.4 % (36.0-47.0) Mean Corpuscular Volume 107 fL (79-100) 107 fL (79-100) Mean Corpuscular Hemoglobin 34 pg (25-35) 34 pg (25-35) Mean Corpuscular Hemoglobin Concent 32 g/dL (31-37) 32 g/dL (31-37) Red Cell Distribution Width 21.1 % (11.5-14.5) 20.3 % (11.5-14.5) Platelet Count 148 x10^3/uL (140-400) 216 x10^3/uL (140-400) Neutrophils (%) (Auto) 78 % (31-73) 80 % (31-73) Lymphocytes (%) (Auto) 10 % (24-48) 9 % (24-48) Monocytes (%) (Auto) 12 % (0-9) 10 % (0-9) Eosinophils (%) (Auto) 0 % (0-3) 0 % (0-3) Basophils (%) (Auto) 0 % (0-3) 1 % (0-3) Neutrophils # (Auto) 6.4 x10^3uL (1.8-7.7) 6.5 x10^3uL (1.8-7.7) Lymphocytes # (Auto) 0.8 x10^3/uL (1.0-4.8) 0.7 x10^3/uL (1.0-4.8) Monocytes # (Auto) 1.0 x10^3/uL (0.0-1.1) 0.8 x10^3/uL (0.0-1.1) Eosinophils # (Auto) 0.0 x10^3/uL (0.0-0.7) 0.0 x10^3/uL (0.0-0.7) Basophils # (Auto) 0.0 x10^3/uL (0.0-0.2) 0.1 x10^3/uL (0.0-0.2) Laboratory Tests Test 07/24/16 04:15 White Blood Count 8.2 x10^3/uL (4.0-11.0) Red Blood Count 2.65 x10^6/uL (3.50-5.40) Hemoglobin 9.0 g/dL (12.0-15.5) Hematocrit 28.4 % (36.0-47.0) Mean Corpuscular Volume 107 fL (79-100) Mean Corpuscular Hemoglobin 34 pg (25-35) Mean Corpuscular Hemoglobin Concent 32 g/dL (31-37) Red Cell Distribution Width 20.3 % (11.5-14.5) Platelet Count 216 x10^3/uL (140-400) Neutrophils (%) (Auto) 80 % (31-73) Lymphocytes (%) (Auto) 9 % (24-48) Monocytes (%) (Auto) 10 % (0-9) Eosinophils (%) (Auto) 0 % (0-3) Basophils (%) (Auto) 1 % (0-3) Neutrophils # (Auto) 6.5 x10^3uL (1.8-7.7) Lymphocytes # (Auto) 0.7 x10^3/uL (1.0-4.8) Monocytes # (Auto) 0.8 x10^3/uL (0.0-1.1) Eosinophils # (Auto) 0.0 x10^3/uL (0.0-0.7) Basophils # (Auto) 0.1 x10^3/uL (0.0-0.2) Sodium Level 137 mmol/L (136-145) Potassium Level 3.6 mmol/L (3.5-5.1) Chloride Level 91 mmol/L (98-107) Carbon Dioxide Level 42 mmol/L (21-32) Anion Gap 4 (6-14) Blood Urea Nitrogen 10 mg/dL (7-20) Creatinine 0.5 mg/dL (0.6-1.0) Estimated GFR (Cockcroft-Gault) 125.4 Glucose Level 78 mg/dL (70-99) Calcium Level 8.9 mg/dL (8.5-10.1) Microbiology 07/18/16 Blood Culture - Final, Complete NO GROWTH AFTER 5 DAYS Medications Current Medications Albuterol/ Ipratropium (Duoneb) 3 ml 1X ONCE NEB Last administered on 11:35; Start 07/18/16 at 11:00; Stop 07/18/16 at 11:01; Status DC Albuterol Sulfate (Ventolin Neb Soln) 2.5 mg 1X ONCE NEB ; Start 07/18/16 at 11: 00; Stop 07/18/16 at 11:01; Status DC Methylprednisolone Sodium Succinate (Solu-Medrol 125mg Vial) 125 mg 1X ONCE IV Last administered on 07/18/16 10:46; Start 07/18/16 at 11:00; Stop 07/18/16 at 11:01; Status DC Sodium Chloride 1,000 ml @ 1,000 mls/hr Q1H IV Last administered on 07/18/16 10:49; Start 07/18/16 at 11:00; Stop 07/18/16 at 11:59; Status DC Sodium Chloride (Normal Saline Flush) 10 ml QSHIFT PRN IV AFTER MEDS AND BLOOD DRAWS Last administered on 07/18/16 10:48; Start 07/18/16 at 10:45 Levofloxacin/ Dextrose 150 ml @ 100 mls/hr 1X ONCE IV Last administered on 12:01; Start 07/18/16 at 11:45; Stop 07/18/16 at 13:14; Status DC Potassium Chloride 100 ml @ 100 mls/hr Q1H IV Last administered on 07/18/16 13 :30; Start 07/18/16 at 12:30; Stop 07/18/16 at 14:29; Status DC Albuterol/ Ipratropium (Duoneb) 3 ml RTQID NEB Last administered on 07/24/16 11:23; Start 07/18/16 at 16:00 Enoxaparin Sodium (Lovenox 40mg Syringe) 40 mg Q24H SQ Last administered on 11:11; Start 07/18/16 at 14:00 Levofloxacin/ Dextrose 100 ml @ 100 mls/hr Q24H IV Last administered on 08:23; Start 07/19/16 at 09:00 Potassium Chloride 100 ml @ 100 mls/hr Q1H IV Last administered on 07/18/16 15 :50; Start 07/18/16 at 16:00; Stop 07/18/16 at 17:59; Status DC Acetaminophen (Tylenol) 325 mg PRN Q6HRS PRN PO MILD PAIN / TEMP Last administered on 07/24/16 06:08; Start 07/18/16 at 15:30 Hydralazine HCl (Apresoline) 10 mg PRN Q4HRS PRN IVP ELEVATED BP, SEE COMMENTS ; Start 07/18/16 at 15:30 Albuterol Sulfate (Ventolin Neb Soln) 2.5 mg PRN Q4HRS PRN NEB SHORTNESS OF BREATH Last administered on 07/24/16 03:46; Start 07/18/16 at 15:30 Oxycodone/ Acetaminophen (Percocet 5/325) 1 tab 1X ONCE PO Last administered on 07/18/16 21:33; Start 07/18/16 at 21:00; Stop 07/18/16 at 21:01; Status DC Potassium Chloride 100 ml @ 100 mls/hr Q1H IV Last administered on 07/19/16 01:32; Start 07/18/16 at 19:30; Stop 07/19/16 at 01:29; Status DC Hydroxychloroquine Sulfate (Plaquenil) 200 mg BID PO Last administered on 08:24; Start 07/18/16 at 21:00 Atorvastatin Calcium (Lipitor) 20 mg HS PO Last administered on 07/23/16 20:13 ; Start 07/19/16 at 21:00 Cetirizine HCl (Zyrtec) 10 mg DAILY PO Last administered on 07/24/16 08:23; Start 07/19/16 at 09:00 Fluticasone Propionate (Flonase) 2 spray DAILY NS Last administered on 08:24; Start 07/19/16 at 09:00 Folic Acid (Folic Acid) 2 mg DAILY PO Last administered on 07/24/16 08:23; Start 07/19/16 at 09:00 Furosemide (Lasix) 40 mg DAILY PO Last administered on 07/24/16 08:23; Start 07/19/16 at 09:00 Levothyroxine Sodium (Synthroid) 112 mcg DAILY07 PO Last administered on 06:08; Start 07/19/16 at 07:00 Metoprolol Succinate (Toprol Xl) 12.5 mg DAILY PO Last administered on 08:28; Start 07/19/16 at 09:00 Prednisone (Prednisone) 1 mg QID PO Last administered on 07/24/16 08:23; Start 07/19/16 at 09:00 Sulfasalazine (Azulfidine) 1,000 mg BID PO Last administered on 07/24/16 08:24 ; Start 07/19/16 at 09:00 Non-Formulary Medication 2 puff QID INH ; Start 07/19/16 at 09:00; Status UNV Salsalate (Salsalate) 750 mg BID PO Last administered on 07/24/16 08:23; Start 07/19/16 at 09:00 Leflunomide (Arava) 20 mg DAILY PO Last administered on 07/24/16 08:24; Start 07/19/16 at 09:00 Albuterol Sulfate (Ventolin Neb Soln) 2.5 mg RTQID NEB ; Start 07/19/16 at 08:00 ; Stop 07/19/16 at 09:38; Status DC Sodium Bicarbonate 50 meq 1X ONCE IV Last administered on 07/19/16 11:38; Start 07/19/16 at 10:30; Stop 07/19/16 at 10:31; Status DC Potassium Chloride (Klor-Con) 40 meq 1X ONCE PO Last administered on 11:20; Start 07/20/16 at 11:00; Stop 07/20/16 at 11:01; Status DC Oxycodone/ Acetaminophen (Percocet 5/325) 1 tab PRN BID PRN PO PAIN Last administered on 07/23/16 23:09; Start 07/20/16 at 11:15 Lorazepam (Ativan) 1 mg PRN Q6HRS PRN PO ANXIETY / AGITATION Last administered on 07/22/16 08:38; Start 07/21/16 at 19:45 Budesonide (Pulmicort) 0.5 mg RTBID NEB Last administered on 07/24/16 07:36; Start 07/22/16 at 11:00 Furosemide (Lasix) 20 mg 1X ONCE IVP Last administered on 07/22/16 14:47; Start 07/22/16 at 14:30; Stop 07/22/16 at 14:31; Status DC Info 1 ea CONT PRN PRN MC PER PROTOCOL; Start 07/22/16 at 14:15 Potassium Chloride (KCl Oral Soln) 40 meq 1X ONCE FT Last administered on 07/22 14:45; Start 07/22/16 at 15:00; Stop 07/22/16 at 15:01; Status DC Potassium Chloride (KCl Oral Soln) 40 meq 1X ONCE FT Last administered on 07/22 18:36; Start 07/22/16 at 18:30; Stop 07/22/16 at 18:31; Status DC Prochlorperazine Edisylate (Compazine) 5 mg PRN Q6HRS PRN IV NAUSEA Last administered on 5/13/17at 18:36; Start 07/22/16 at 18:30 Active Scripts Active Reported Lipitor (Atorvastatin Calcium) 20 Mg Tablet 20 Mg PO HS Zyrtec (Cetirizine Hcl) 10 Mg Tablet 1 Tab PO DAILY Fluticasone Propionate Nasal [place] (Fluticasone Propionate) 16 Gm [place].susp 2 [place] NS DAILY Lasix (Furosemide) 40 Mg Tablet 1 Tab PO DAILY Folic Acid 1 Mg Tablet 2 Tab PO DAILY Ventolin Hfa Inhaler (Albuterol Sulfate) 18 Gm Hfa.aer.ad 2 Puff INH QID Leflunomide 20 Mg Tablet 20 Mg PO DAILY Metoprolol Succinate ( Xl ) (Metoprolol Succinate) 25 Mg Tab.er.24h 0.5 Tab PO DAILY Levothyroxine Sodium 112 Mcg Tablet 112 Mcg PO DAILY Diflunisal 500 Mg Tablet 500 Mg PO BID Sulfasalazine 500 Mg Tablet 1,000 Mg PO BID Prednisone 1 Mg Tablet 1 Mg PO QID Vitals/I & O Vital Sign - Last 24 Hours 07/23/16 07/23/16 07/23/16 07/23/16 15:00 15:24 19:00 19:11 Temp 98.7 97.9 98.7 97.9 Pulse 111 113 Resp 18 B/P (MAP) 121/65 (83) 111/44 (66) Pulse Ox 96 91 97 96 O2 Delivery Nasal Cannula Simple Mask Nasal Cannula Nasal Cannula O2 Flow Rate 4.5 5.0 5.0 5.0 07/23/16 07/23/16 07/23/16 07/24/16 20:27 23:00 23:09 00:09 Temp 97.9 97.9 Pulse 109 Resp 20 20 18 B/P (MAP) 116/52 (73) Pulse Ox 99 96 96 O2 Delivery Nasal Cannula Nasal Cannula Nasal Cannula Nasal Cannula O2 Flow Rate 4.0 4.0 5.0 5.0 07/24/16 07/24/16 07/24/16 07/24/16 01:25 03:00 03:46 07:00 Temp 98.1 98.1 98.1 98.1 Pulse 107 114 Resp 22 20 B/P (MAP) 131/65 (87) 118/32 (60) Pulse Ox 95 96 100 O2 Delivery BiPAP/CPAP Nasal Cannula Nasal Cannula Room Air O2 Flow Rate 4.0 5.0 507/24/16 07/24/16 07/24/16 07:40 08:00 08:28 11:24 Pulse 114 B/P (MAP) 119/42 Pulse Ox 91 93 O2 Delivery Nasal Cannula Nasal Cannula Nasal Cannula O2 Flow Rate 5.0 4.5 5.0 Intake and Output 07/23/16 07/23/16 07/24/16 15:00 23:00 07:00 Intake Total 220 ml 200 ml 120 ml Output Total 150 ml 70 ml Balance 70 ml 130 ml 120 ml PRANAV SON MD July 24, 2016 12:05
--- NOTE | 2016-07-24 13:22 | PDOC ---
PULMONARY PROGRESS NOTES Subjective on 02, on BIPAP overnight, Vitals Vital Signs Date Time Temp Pulse Resp B/P (MAP) Pulse Ox O2 Delivery O2 Flow Rate FiO2 07/24/16 11:24 93 Nasal Cannula 5.0 07/24/16 11:00 97.3 107 20 107/63 (78) 97.3 Comments ros as mentioned as above other sys otherwise neg ROS: No Nausea General: Alert, No acute distress HEENT: Other (nc at perrl, shallow oropharynx nose clear) Lungs: Other (decrease bs) Cardiovascular: S1, S2 Abdomen: Soft, Non-tender, Other (no mass) Neuro Exam: Alert Extremities: Other (trace edema) Skin: Warm Labs Laboratory Tests Test 07/22/16 17:25 07/22/16 20:49 07/23/16 05:55 07/24/16 04:15 Sodium Level 139 mmol/L (136-145) 138 mmol/L (136-145) 141 mmol/L (136-145) 137 mmol/L (136-145) Potassium Level 3.4 mmol/L (3.5-5.1) 4.7 mmol/L (3.5-5.1) 4.1 mmol/L (3.5-5.1) 3.6 mmol/L (3.5-5.1) Chloride Level 90 mmol/L (98-107) 92 mmol/L (98-107) 93 mmol/L (98-107) 91 mmol/L (98-107) Carbon Dioxide Level > 45 mmol/L (21-32) > 45 mmol/L (21-32) > 45 mmol/L (21-32) 42 mmol/L (21-32) Anion Gap 4 (6-14) (6-14) (6-14) 4 (6-14) Blood Urea Nitrogen 14 mg/dL (7-20) 14 mg/dL (7-20) 12 mg/dL (7-20) 10 mg/dL (7-20) Creatinine 0.9 mg/dL (0.6-1.0) 0.9 mg/dL (0.6-1.0) 0.7 mg/dL (0.6-1.0) 0.5 mg/dL (0.6-1.0) Estimated GFR (Cockcroft-Gault) 63.7 63.7 85.1 125.4 Glucose Level 131 mg/dL (70-99) 148 mg/dL (70-99) 84 mg/dL (70-99) 78 mg/dL (70-99) Calcium Level 8.7 mg/dL (8.5-10.1) 8.8 mg/dL (8.5-10.1) 8.2 mg/dL (8.5-10.1) 8.9 mg/dL (8.5-10.1) White Blood Count 8.2 x10^3/uL (4.0-11.0) 8.2 x10^3/uL (4.0-11.0) Red Blood Count 2.53 x10^6/uL (3.50-5.40) 2.65 x10^6/uL (3.50-5.40) Hemoglobin 8.6 g/dL (12.0-15.5) 9.0 g/dL (12.0-15.5) Hematocrit 27.0 % (36.0-47.0) 28.4 % (36.0-47.0) Mean Corpuscular Volume 107 fL (79-100) 107 fL (79-100) Mean Corpuscular Hemoglobin 34 pg (25-35) 34 pg (25-35) Mean Corpuscular Hemoglobin Concent 32 g/dL (31-37) 32 g/dL (31-37) Red Cell Distribution Width 21.1 % (11.5-14.5) 20.3 % (11.5-14.5) Platelet Count 148 x10^3/uL (140-400) 216 x10^3/uL (140-400) Neutrophils (%) (Auto) 78 % (31-73) 80 % (31-73) Lymphocytes (%) (Auto) 10 % (24-48) 9 % (24-48) Monocytes (%) (Auto) 12 % (0-9) 10 % (0-9) Eosinophils (%) (Auto) 0 % (0-3) 0 % (0-3) Basophils (%) (Auto) 0 % (0-3) 1 % (0-3) Neutrophils # (Auto) 6.4 x10^3uL (1.8-7.7) 6.5 x10^3uL (1.8-7.7) Lymphocytes # (Auto) 0.8 x10^3/uL (1.0-4.8) 0.7 x10^3/uL (1.0-4.8) Monocytes # (Auto) 1.0 x10^3/uL (0.0-1.1) 0.8 x10^3/uL (0.0-1.1) Eosinophils # (Auto) 0.0 x10^3/uL (0.0-0.7) 0.0 x10^3/uL (0.0-0.7) Basophils # (Auto) 0.0 x10^3/uL (0.0-0.2) 0.1 x10^3/uL (0.0-0.2) Laboratory Tests Test 07/24/16 04:15 White Blood Count 8.2 x10^3/uL (4.0-11.0) Red Blood Count 2.65 x10^6/uL (3.50-5.40) Hemoglobin 9.0 g/dL (12.0-15.5) Hematocrit 28.4 % (36.0-47.0) Mean Corpuscular Volume 107 fL (79-100) Mean Corpuscular Hemoglobin 34 pg (25-35) Mean Corpuscular Hemoglobin Concent 32 g/dL (31-37) Red Cell Distribution Width 20.3 % (11.5-14.5) Platelet Count 216 x10^3/uL (140-400) Neutrophils (%) (Auto) 80 % (31-73) Lymphocytes (%) (Auto) 9 % (24-48) Monocytes (%) (Auto) 10 % (0-9) Eosinophils (%) (Auto) 0 % (0-3) Basophils (%) (Auto) 1 % (0-3) Neutrophils # (Auto) 6.5 x10^3uL (1.8-7.7) Lymphocytes # (Auto) 0.7 x10^3/uL (1.0-4.8) Monocytes # (Auto) 0.8 x10^3/uL (0.0-1.1) Eosinophils # (Auto) 0.0 x10^3/uL (0.0-0.7) Basophils # (Auto) 0.1 x10^3/uL (0.0-0.2) Sodium Level 137 mmol/L (136-145) Potassium Level 3.6 mmol/L (3.5-5.1) Chloride Level 91 mmol/L (98-107) Carbon Dioxide Level 42 mmol/L (21-32) Anion Gap 4 (6-14) Blood Urea Nitrogen 10 mg/dL (7-20) Creatinine 0.5 mg/dL (0.6-1.0) Estimated GFR (Cockcroft-Gault) 125.4 Glucose Level 78 mg/dL (70-99) Calcium Level 8.9 mg/dL (8.5-10.1) Medications Active Scripts Medications Dose Route/Sig Max Daily Dose Days Date Category Lipitor (Atorvastatin Calcium) 20 Mg Tablet 20 Mg PO HS 07/18/16 Reported Zyrtec (Cetirizine Hcl) 10 Mg Tablet 1 Tab PO DAILY 07/18/16 Reported Fluticasone Propionate Nasal [place] (Fluticasone Propionate) 16 Gm [place].susp 2 [place] NS DAILY 07/18/16 Reported Lasix (Furosemide) 40 Mg Tablet 1 Tab PO DAILY 07/18/16 Reported Folic Acid 1 Mg Tablet 2 Tab PO DAILY 07/18/16 Reported Ventolin Hfa Inhaler (Albuterol Sulfate) 18 Gm Hfa.aer.ad 2 Puff INH QID 07/18/16 Reported Leflunomide 20 Mg Tablet 20 Mg PO DAILY 07/18/16 Reported Metoprolol Succinate ( Xl ) (Metoprolol Succinate) 25 Mg Tab.er.24h 0.5 Tab PO DAILY 07/18/16 Reported Levothyroxine Sodium 112 Mcg Tablet 112 Mcg PO DAILY 04/19/13 Reported Diflunisal 500 Mg Tablet 500 Mg PO BID 04/19/13 Reported Sulfasalazine 500 Mg Tablet 1,000 Mg PO BID 04/19/13 Reported Prednisone 1 Mg Tablet 1 Mg PO QID 04/19/13 Reported Comments cxr reviewed, cm, no infilt Impression . 1. Acute on chronic hypoxic and hypercapnic respiratory failure. This has multifactorial etiologies and includes combination of acute bronchitis, hypoventilation from the use of benzodiazepines and narcotics and possible cor pulmonale. She does have lower extremity edema. 2. Underlying severe chronic obstructive pulmonary disease with chronic respiratory failure, now with acute respiratory failure. 3. History of rheumatoid arthritis, on chronic steroids and methotrexate. 4. Suspected acute bronchitis. 5. Chronic benzodiazepine and narcotic use. She uses oxycodone and diazepam regularly, which may have contributed to her encephalopathy. 6. Acute encephalopathy related to medication effect and also hypercapnia. Plan . 1. BiPAP prn during day., cont at night. 2. Pt wants her pain meds for RA. avoid oversedation 3. empiric antibiotic. 4. keep I<O, lasix prn, monitor k, cr. 5. Minimize the use of home narcotics and benzodiazepines. 6. Continue her steroids and methotrexate for rheumatoid arthritis. 7. DVT prophylaxis. 8. IS 9. bronchodilator, ics Discussed with RN, ELO SANCHEZ MD July 24, 2016 13:22
[2016-07-24] MEDS: ENOXAPARIN 40 MG/0.4 ML SYRINGE. SQ SCH (13:50)
[2016-07-24 15:00] VITALS: BP 133/69
[2016-07-24 19:00] VITALS: BP 108/52
[2016-07-24] MEDS: PROCHLORPERAZINE 10 MG/2 ML VIAL. IV PRN (20:22)
[2016-07-24] MEDS: LORazepam 1 MG TABLET PO PRN (20:22)
[2016-07-24] MEDS: oxyCODONE/APAP 5/325 1 TAB TABLET PO PRN (20:22)
[2016-07-24] MEDS: ATORVASTATIN CALCIUM 20 MG TABLET PO SCH (20:22)
[2016-07-24 23:04] VITALS: BP 113/60
[2016-07-25 03:00] VITALS: BP 121/53
[2016-07-25] MEDS: LEVOTHYROXINE 112 MCG TABLET PO SCH (06:00)
[2016-07-25 06:40] LABS: BLOOD UREA NITROGEN 13 mg/dL (7-20); CALCIUM 8.7 mg/dL (8.5-10.1); CARBON DIOXIDE > 45 mmol/L (21-32); CHLORIDE 90 mmol/L (98-107); CREATININE 0.8 mg/dL (0.6-1.0); GFR 72.9; GLUCOSE 90 mg/dL (70-99); POTASSIUM 3.4 mmol/L (3.5-5.1); SODIUM 138 mmol/L (136-145)
[2016-07-25 07:00] VITALS: BP 136/69
[2016-07-25] MEDS: BUDESONIDE 0.5 MG/2 ML NEBU. NEB SCH ×2 (07:21→19:35)
[2016-07-25] MEDS: IPRATRPIUM/ALBUTEROL 0.5/2.5MG 3 ML NEBU. NEB SCH ×4 (07:21→19:35)
[2016-07-25] MEDS: HYDROXYCHLOROQUINE 200 MG TABLET PO SCH ×2 (08:42→20:29)
[2016-07-25] MEDS: sulfaSALAzine 500 MG TABLET PO SCH ×2 (08:42→20:28)
[2016-07-25] MEDS: SALSALATE 750 MG PO SCH ×2 (08:42→20:29)
[2016-07-25] MEDS: CETIRIZINE HCL 10 MG TABLET. PO SCH (08:42)
[2016-07-25] MEDS: FUROSEMIDE 40 MG TABLET. PO SCH (08:42)
[2016-07-25] MEDS: LEFLUNOMIDE 10 MG TABLET. PO SCH (08:43)
[2016-07-25] MEDS: FOLIC ACID 1 MG TABLET. PO SCH (08:43)
[2016-07-25] MEDS: predniSONE 1 MG TABLET PO SCH ×4 (08:43→20:28)
[2016-07-25] MEDS: FLUTICASONE 50MCG/NASAL SPRAY 16GM BOTTLE. NS SCH (08:44)
[2016-07-25] MEDS: METOPROLOL SUCC 24HR ER 25 MG TAB.ER.24H. PO SCH (08:44)
--- NOTE | 2016-07-25 09:29 | PDOC ---
PULMONARY PROGRESS NOTES Subjective on 02, on BIPAP overnight, Vitals Vital Signs Date Time Temp Pulse Resp B/P (MAP) Pulse Ox O2 Delivery O2 Flow Rate FiO2 07/25/16 08:44 113 136/69 07/25/16 08:00 Nasal Cannula 4.5 07/25/16 07:25 96 07/25/16 07:00 97.5 19 97.5 Comments ros as mentioned as above other sys otherwise neg ROS: No Nausea General: Alert, No acute distress HEENT: Other (nc at perrl, shallow oropharynx nose clear) Lungs: Other (decrease bs) Cardiovascular: S1, S2 Abdomen: Soft, Non-tender, Other (no mass) Neuro Exam: Alert Extremities: Other (trace edema) Skin: Warm Labs Laboratory Tests Test 07/24/16 04:15 07/25/16 05:00 White Blood Count 8.2 x10^3/uL (4.0-11.0) Red Blood Count 2.65 x10^6/uL (3.50-5.40) Hemoglobin 9.0 g/dL (12.0-15.5) Hematocrit 28.4 % (36.0-47.0) Mean Corpuscular Volume 107 fL (79-100) Mean Corpuscular Hemoglobin 34 pg (25-35) Mean Corpuscular Hemoglobin Concent 32 g/dL (31-37) Red Cell Distribution Width 20.3 % (11.5-14.5) Platelet Count 216 x10^3/uL (140-400) Neutrophils (%) (Auto) 80 % (31-73) Lymphocytes (%) (Auto) 9 % (24-48) Monocytes (%) (Auto) 10 % (0-9) Eosinophils (%) (Auto) 0 % (0-3) Basophils (%) (Auto) 1 % (0-3) Neutrophils # (Auto) 6.5 x10^3uL (1.8-7.7) Lymphocytes # (Auto) 0.7 x10^3/uL (1.0-4.8) Monocytes # (Auto) 0.8 x10^3/uL (0.0-1.1) Eosinophils # (Auto) 0.0 x10^3/uL (0.0-0.7) Basophils # (Auto) 0.1 x10^3/uL (0.0-0.2) Sodium Level 137 mmol/L (136-145) 138 mmol/L (136-145) Potassium Level 3.6 mmol/L (3.5-5.1) 3.4 mmol/L (3.5-5.1) Chloride Level 91 mmol/L (98-107) 90 mmol/L (98-107) Carbon Dioxide Level 42 mmol/L (21-32) > 45 mmol/L (21-32) Anion Gap 4 (6-14) (6-14) Blood Urea Nitrogen 10 mg/dL (7-20) 13 mg/dL (7-20) Creatinine 0.5 mg/dL (0.6-1.0) 0.8 mg/dL (0.6-1.0) Estimated GFR (Cockcroft-Gault) 125.4 72.9 Glucose Level 78 mg/dL (70-99) 90 mg/dL (70-99) Calcium Level 8.9 mg/dL (8.5-10.1) 8.7 mg/dL (8.5-10.1) Laboratory Tests Test 07/25/16 05:00 Sodium Level 138 mmol/L (136-145) Potassium Level 3.4 mmol/L (3.5-5.1) Chloride Level 90 mmol/L (98-107) Carbon Dioxide Level > 45 mmol/L (21-32) Anion Gap (6-14) Blood Urea Nitrogen 13 mg/dL (7-20) Creatinine 0.8 mg/dL (0.6-1.0) Estimated GFR (Cockcroft-Gault) 72.9 Glucose Level 90 mg/dL (70-99) Calcium Level 8.7 mg/dL (8.5-10.1) Medications Active Scripts Medications Dose Route/Sig Max Daily Dose Days Date Category Lipitor (Atorvastatin Calcium) 20 Mg Tablet 20 Mg PO HS 07/18/16 Reported Zyrtec (Cetirizine Hcl) 10 Mg Tablet 1 Tab PO DAILY 07/18/16 Reported Fluticasone Propionate Nasal [place] (Fluticasone Propionate) 16 Gm [place].susp 2 [place] NS DAILY 07/18/16 Reported Lasix (Furosemide) 40 Mg Tablet 1 Tab PO DAILY 07/18/16 Reported Folic Acid 1 Mg Tablet 2 Tab PO DAILY 07/18/16 Reported Ventolin Hfa Inhaler (Albuterol Sulfate) 18 Gm Hfa.aer.ad 2 Puff INH QID 07/18/16 Reported Leflunomide 20 Mg Tablet 20 Mg PO DAILY 07/18/16 Reported Metoprolol Succinate ( Xl ) (Metoprolol Succinate) 25 Mg Tab.er.24h 0.5 Tab PO DAILY 07/18/16 Reported Levothyroxine Sodium 112 Mcg Tablet 112 Mcg PO DAILY 04/19/13 Reported Diflunisal 500 Mg Tablet 500 Mg PO BID 04/19/13 Reported Sulfasalazine 500 Mg Tablet 1,000 Mg PO BID 04/19/13 Reported Prednisone 1 Mg Tablet 1 Mg PO QID 04/19/13 Reported Comments cxr reviewed, cm, no infilt Impression . 1. Acute on chronic hypoxic and hypercapnic respiratory failure. This has multifactorial etiologies and includes combination of acute bronchitis, hypoventilation from the use of benzodiazepines and narcotics and possible cor pulmonale. She does have lower extremity edema. 2. Underlying severe chronic obstructive pulmonary disease with chronic respiratory failure, now with acute respiratory failure. 3. History of rheumatoid arthritis, on chronic steroids and methotrexate. 4. Suspected acute bronchitis. 5. Chronic benzodiazepine and narcotic use. She uses oxycodone and diazepam regularly, which may have contributed to her encephalopathy. 6. Acute encephalopathy related to medication effect and also hypercapnia. Plan . 1. BiPAP prn during day., cont at night. 2. Pt wants her pain meds for RA. avoid oversedation 3. empiric antibiotic. 4. keep I<O, lasix prn, monitor k, cr. 5. Minimize the use of home narcotics and benzodiazepines. 6. Continue her steroids and methotrexate for rheumatoid arthritis. 7. DVT prophylaxis. 8. IS 9. bronchodilator, ics Discussed with RN,/ consider LTAC vs ELO Hackett MD July 25, 2016 09:29
[2016-07-25 10:56] VITALS: BP 121/53
[2016-07-25] MEDS: ENOXAPARIN 40 MG/0.4 ML SYRINGE. SQ SCH (14:39)
[2016-07-25 15:00] VITALS: BP 128/62
--- NOTE | 2016-07-25 15:48 | PDOC ---
PROGRESS NOTES Chief Complaint Chief Complaint Acute on chronic hypoxic, hypercapnic respiratory failure 1. COPD exacerbation: improving very slowly. BiPAP Hs, she feels she has BELINDA 2. Acute bronchitis: cont levaquin 3. AMS: metabolic encephalopathy, hypercarbia, weakness 4. RA: on chronic low dose steroids, methotrexate and plaquenil. stop for acute illness, pt disabled and has 2 full-time paid caregivers at home 5. DVT prophylaxis. History of Present Illness History of Present Illness on NC, subjectively SOB, but good pOx. feels stronger inhal steroid . echo nl with nl pA pressure; cautious diuresis as tolerated Vitals Vitals Vital Signs Date Time Temp Pulse Resp B/P (MAP) Pulse Ox O2 Delivery O2 Flow Rate FiO2 07/25/16 15:35 Nasal Cannula 5.0 07/25/16 10:56 97.7 113 19 121/53 (75) 97 97.7 Physical Exam General: Alert, Cooperative, No acute distress Heart: Regular rate Lungs: Other (decrease bs) Abdomen: Normal bowel sounds, No tenderness Extremities: No edema Skin: No rashes Labs LABS Laboratory Tests Test 07/25/16 05:00 Sodium Level 138 mmol/L (136-145) Potassium Level 3.4 mmol/L (3.5-5.1) Chloride Level 90 mmol/L (98-107) Carbon Dioxide Level > 45 mmol/L (21-32) Anion Gap (6-14) Blood Urea Nitrogen 13 mg/dL (7-20) Creatinine 0.8 mg/dL (0.6-1.0) Estimated GFR (Cockcroft-Gault) 72.9 Glucose Level 90 mg/dL (70-99) Calcium Level 8.7 mg/dL (8.5-10.1) Review of Systems Review of Systems weakness cough dyspnea Assessment and Plan Assessmemt and Plan Problems Medical Problems: (1) Acidosis Status: Acute (2) COPD (chronic obstructive pulmonary disease) Status: Acute Problems: Comment Review of Relevant I have reviewed the following items declan (where applicable) has been applied. Labs Laboratory Tests Test 07/24/16 04:15 07/25/16 05:00 White Blood Count 8.2 x10^3/uL (4.0-11.0) Red Blood Count 2.65 x10^6/uL (3.50-5.40) Hemoglobin 9.0 g/dL (12.0-15.5) Hematocrit 28.4 % (36.0-47.0) Mean Corpuscular Volume 107 fL (79-100) Mean Corpuscular Hemoglobin 34 pg (25-35) Mean Corpuscular Hemoglobin Concent 32 g/dL (31-37) Red Cell Distribution Width 20.3 % (11.5-14.5) Platelet Count 216 x10^3/uL (140-400) Neutrophils (%) (Auto) 80 % (31-73) Lymphocytes (%) (Auto) 9 % (24-48) Monocytes (%) (Auto) 10 % (0-9) Eosinophils (%) (Auto) 0 % (0-3) Basophils (%) (Auto) 1 % (0-3) Neutrophils # (Auto) 6.5 x10^3uL (1.8-7.7) Lymphocytes # (Auto) 0.7 x10^3/uL (1.0-4.8) Monocytes # (Auto) 0.8 x10^3/uL (0.0-1.1) Eosinophils # (Auto) 0.0 x10^3/uL (0.0-0.7) Basophils # (Auto) 0.1 x10^3/uL (0.0-0.2) Sodium Level 137 mmol/L (136-145) 138 mmol/L (136-145) Potassium Level 3.6 mmol/L (3.5-5.1) 3.4 mmol/L (3.5-5.1) Chloride Level 91 mmol/L (98-107) 90 mmol/L (98-107) Carbon Dioxide Level 42 mmol/L (21-32) > 45 mmol/L (21-32) Anion Gap 4 (6-14) (6-14) Blood Urea Nitrogen 10 mg/dL (7-20) 13 mg/dL (7-20) Creatinine 0.5 mg/dL (0.6-1.0) 0.8 mg/dL (0.6-1.0) Estimated GFR (Cockcroft-Gault) 125.4 72.9 Glucose Level 78 mg/dL (70-99) 90 mg/dL (70-99) Calcium Level 8.9 mg/dL (8.5-10.1) 8.7 mg/dL (8.5-10.1) Laboratory Tests Test 07/25/16 05:00 Sodium Level 138 mmol/L (136-145) Potassium Level 3.4 mmol/L (3.5-5.1) Chloride Level 90 mmol/L (98-107) Carbon Dioxide Level > 45 mmol/L (21-32) Anion Gap (6-14) Blood Urea Nitrogen 13 mg/dL (7-20) Creatinine 0.8 mg/dL (0.6-1.0) Estimated GFR (Cockcroft-Gault) 72.9 Glucose Level 90 mg/dL (70-99) Calcium Level 8.7 mg/dL (8.5-10.1) Microbiology 07/18/16 Blood Culture - Final, Complete NO GROWTH AFTER 5 DAYS Medications Current Medications Albuterol/ Ipratropium (Duoneb) 3 ml 1X ONCE NEB Last administered on 11:35; Start 07/18/16 at 11:00; Stop 07/18/16 at 11:01; Status DC Albuterol Sulfate (Ventolin Neb Soln) 2.5 mg 1X ONCE NEB ; Start 07/18/16 at 11: 00; Stop 07/18/16 at 11:01; Status DC Methylprednisolone Sodium Succinate (Solu-Medrol 125mg Vial) 125 mg 1X ONCE IV Last administered on 07/18/16 10:46; Start 07/18/16 at 11:00; Stop 07/18/16 at 11:01; Status DC Sodium Chloride 1,000 ml @ 1,000 mls/hr Q1H IV Last administered on 07/18/16 10:49; Start 07/18/16 at 11:00; Stop 07/18/16 at 11:59; Status DC Sodium Chloride (Normal Saline Flush) 10 ml QSHIFT PRN IV AFTER MEDS AND BLOOD DRAWS Last administered on 07/18/16 10:48; Start 07/18/16 at 10:45 Levofloxacin/ Dextrose 150 ml @ 100 mls/hr 1X ONCE IV Last administered on 12:01; Start 07/18/16 at 11:45; Stop 07/18/16 at 13:14; Status DC Potassium Chloride 100 ml @ 100 mls/hr Q1H IV Last administered on 07/18/16 13 :30; Start 07/18/16 at 12:30; Stop 07/18/16 at 14:29; Status DC Albuterol/ Ipratropium (Duoneb) 3 ml RTQID NEB Last administered on 07/25/16 15:33; Start 07/18/16 at 16:00 Enoxaparin Sodium (Lovenox 40mg Syringe) 40 mg Q24H SQ Last administered on 14:39; Start 07/18/16 at 14:00 Levofloxacin/ Dextrose 100 ml @ 100 mls/hr Q24H IV Last administered on 08:42; Start 07/19/16 at 09:00; Stop 07/25/16 at 12:56; Status DC Potassium Chloride 100 ml @ 100 mls/hr Q1H IV Last administered on 07/18/16 15 :50; Start 07/18/16 at 16:00; Stop 07/18/16 at 17:59; Status DC Acetaminophen (Tylenol) 325 mg PRN Q6HRS PRN PO MILD PAIN / TEMP Last administered on 07/24/16 18:27; Start 07/18/16 at 15:30 Hydralazine HCl (Apresoline) 10 mg PRN Q4HRS PRN IVP ELEVATED BP, SEE COMMENTS ; Start 07/18/16 at 15:30 Albuterol Sulfate (Ventolin Neb Soln) 2.5 mg PRN Q4HRS PRN NEB SHORTNESS OF BREATH Last administered on 07/24/16 03:46; Start 07/18/16 at 15:30 Oxycodone/ Acetaminophen (Percocet 5/325) 1 tab 1X ONCE PO Last administered on 07/18/16 21:33; Start 07/18/16 at 21:00; Stop 07/18/16 at 21:01; Status DC Potassium Chloride 100 ml @ 100 mls/hr Q1H IV Last administered on 07/19/16 01:32; Start 07/18/16 at 19:30; Stop 07/19/16 at 01:29; Status DC Hydroxychloroquine Sulfate (Plaquenil) 200 mg BID PO Last administered on 08:42; Start 07/18/16 at 21:00 Atorvastatin Calcium (Lipitor) 20 mg HS PO Last administered on 07/24/16 20:22 ; Start 07/19/16 at 21:00 Cetirizine HCl (Zyrtec) 10 mg DAILY PO Last administered on 07/25/16 08:42; Start 07/19/16 at 09:00 Fluticasone Propionate (Flonase) 2 spray DAILY NS Last administered on 08:44; Start 07/19/16 at 09:00 Folic Acid (Folic Acid) 2 mg DAILY PO Last administered on 07/25/16 08:43; Start 07/19/16 at 09:00 Furosemide (Lasix) 40 mg DAILY PO Last administered on 07/25/16 08:42; Start 07/19/16 at 09:00 Levothyroxine Sodium (Synthroid) 112 mcg DAILY07 PO Last administered on 06:00; Start 07/19/16 at 07:00 Metoprolol Succinate (Toprol Xl) 12.5 mg DAILY PO Last administered on 08:44; Start 07/19/16 at 09:00 Prednisone (Prednisone) 1 mg QID PO Last administered on 07/25/16 12:24; Start 07/19/16 at 09:00 Sulfasalazine (Azulfidine) 1,000 mg BID PO Last administered on 07/25/16 08:42 ; Start 07/19/16 at 09:00 Non-Formulary Medication 2 puff QID INH ; Start 07/19/16 at 09:00; Status UNV Salsalate (Salsalate) 750 mg BID PO Last administered on 07/25/16 08:42; Start 07/19/16 at 09:00 Leflunomide (Arava) 20 mg DAILY PO Last administered on 07/25/16 08:43; Start 07/19/16 at 09:00 Albuterol Sulfate (Ventolin Neb Soln) 2.5 mg RTQID NEB ; Start 07/19/16 at 08:00 ; Stop 07/19/16 at 09:38; Status DC Sodium Bicarbonate 50 meq 1X ONCE IV Last administered on 07/19/16 11:38; Start 07/19/16 at 10:30; Stop 07/19/16 at 10:31; Status DC Potassium Chloride (Klor-Con) 40 meq 1X ONCE PO Last administered on 11:20; Start 07/20/16 at 11:00; Stop 07/20/16 at 11:01; Status DC Oxycodone/ Acetaminophen (Percocet 5/325) 1 tab PRN BID PRN PO PAIN Last administered on 07/24/16 20:22; Start 07/20/16 at 11:15 Lorazepam (Ativan) 1 mg PRN Q6HRS PRN PO ANXIETY / AGITATION Last administered on 07/24/16 20:22; Start 07/21/16 at 19:45 Budesonide (Pulmicort) 0.5 mg RTBID NEB Last administered on 07/25/16 07:21; Start 07/22/16 at 11:00 Furosemide (Lasix) 20 mg 1X ONCE IVP Last administered on 07/22/16 14:47; Start 07/22/16 at 14:30; Stop 07/22/16 at 14:31; Status DC Info 1 ea CONT PRN PRN MC PER PROTOCOL; Start 07/22/16 at 14:15 Potassium Chloride (KCl Oral Soln) 40 meq 1X ONCE FT Last administered on 07/22 14:45; Start 07/22/16 at 15:00; Stop 07/22/16 at 15:01; Status DC Potassium Chloride (KCl Oral Soln) 40 meq 1X ONCE FT Last administered on 07/22 18:36; Start 07/22/16 at 18:30; Stop 07/22/16 at 18:31; Status DC Prochlorperazine Edisylate (Compazine) 5 mg PRN Q6HRS PRN IV NAUSEA Last administered on 07/24/16 20:22; Start 07/22/16 at 18:30 Levofloxacin (Levaquin) 500 mg DAILY06 PO ; Start 07/26/16 at 06:00 Active Scripts Active Reported Lipitor (Atorvastatin Calcium) 20 Mg Tablet 20 Mg PO HS Zyrtec (Cetirizine Hcl) 10 Mg Tablet 1 Tab PO DAILY Fluticasone Propionate Nasal [place] (Fluticasone Propionate) 16 Gm [place].susp 2 [place] NS DAILY Lasix (Furosemide) 40 Mg Tablet 1 Tab PO DAILY Folic Acid 1 Mg Tablet 2 Tab PO DAILY Ventolin Hfa Inhaler (Albuterol Sulfate) 18 Gm Hfa.aer.ad 2 Puff INH QID Leflunomide 20 Mg Tablet 20 Mg PO DAILY Metoprolol Succinate ( Xl ) (Metoprolol Succinate) 25 Mg Tab.er.24h 0.5 Tab PO DAILY Levothyroxine Sodium 112 Mcg Tablet 112 Mcg PO DAILY Diflunisal 500 Mg Tablet 500 Mg PO BID Sulfasalazine 500 Mg Tablet 1,000 Mg PO BID Prednisone 1 Mg Tablet 1 Mg PO QID Vitals/I & O Vital Sign - Last 24 Hours 07/24/16 07/24/16 07/24/16 07/24/16 19:00 19:13 19:14 20:00 Temp 97.5 97.5 Pulse 120 Resp 22 B/P (MAP) 108/52 (70) Pulse Ox 96 O2 Delivery Room Air Nasal Cannula Nasal Cannula Nasal Cannula O2 Flow Rate 5.0 5.0 5.0 07/24/16 07/24/16 07/24/16 07/24/16 20:22 21:22 23:04 23:24 Temp 96.4 96.4 Pulse 107 Resp 18 18 22 B/P (MAP) 113/60 (77) Pulse Ox 93 93 94 O2 Delivery Nasal Cannula Nasal Cannula Room Air BiPAP/CPAP O2 Flow Rate 5.0 5.0 07/25/16 07/25/16 07/25/16 07/25/16 01:04 03:00 04:04 07:00 Temp 97.5 97.5 97.5 97.5 Pulse 113 113 Resp 22 19 B/P (MAP) 121/53 (75) 136/69 (91) Pulse Ox 99 98 O2 Delivery BiPAP/CPAP Room Air BiPAP/CPAP Nasal Cannula O2 Flow Rate 5.0 07/25/16 07/25/16 07/25/16 07/25/16 07:25 08:00 08:44 10:56 Temp 97.7 97.7 Pulse 113 113 Resp 19 B/P (MAP) 136/69 121/53 (75) Pulse Ox 96 97 O2 Delivery Nasal Cannula Nasal Cannula Nasal Cannula O2 Flow Rate 5.0 4.5 5.0 07/25/16 07/25/16 11:08 15:35 O2 Delivery Nasal Cannula Nasal Cannula O2 Flow Rate 5.0 5.0 Intake and Output 07/24/16 07/24/16 07/25/16 15:00 23:00 07:00 Intake Total 100 ml 0 ml 24 ml Balance 100 ml 0 ml 24 ml PRANAV SON MD July 25, 2016 15:48
[2016-07-25] MEDS: oxyCODONE/APAP 5/325 1 TAB TABLET PO PRN ×2 (16:32→21:27)
[2016-07-25] MEDS: PROCHLORPERAZINE 10 MG/2 ML VIAL. IV PRN (18:26)
[2016-07-25 19:00] VITALS: BP 139/73
[2016-07-25] MEDS: ATORVASTATIN CALCIUM 20 MG TABLET PO SCH (20:27)
[2016-07-25] MEDS: LORazepam 1 MG TABLET PO PRN (20:30)
[2016-07-25 22:35] VITALS: BP 139/64
[2016-07-26] VITALS (18 sets, daily range): BP systolic 39–198; BP diastolic 29–160
[2016-07-26] MEDS: LEVOTHYROXINE 112 MCG TABLET PO SCH (05:14)
[2016-07-26] MEDS: IPRATRPIUM/ALBUTEROL 0.5/2.5MG 3 ML NEBU. NEB SCH ×4 (08:25→19:34)
[2016-07-26] MEDS: BUDESONIDE 0.5 MG/2 ML NEBU. NEB SCH ×2 (08:25→19:34)
--- NOTE | 2016-07-26 08:59 | EKG ---
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
[2016-07-26] MEDS: SALSALATE 750 MG PO SCH ×2 (09:00→21:07)
[2016-07-26] MEDS: METOPROLOL SUCC 24HR ER 25 MG TAB.ER.24H. PO SCH (09:00)
[2016-07-26] MEDS: CETIRIZINE HCL 10 MG TABLET. PO SCH (09:00)
[2016-07-26] MEDS ORDERED: IV NORMAL SALINE 1000ML BAG 1,000 ML IV ONE ×2 (09:00)
[2016-07-26] MEDS: FOLIC ACID 1 MG TABLET. PO SCH (09:00)
[2016-07-26] MEDS: FLUTICASONE 50MCG/NASAL SPRAY 16GM BOTTLE. NS SCH (09:00)
[2016-07-26] MEDS: HYDROXYCHLOROQUINE 200 MG TABLET PO SCH ×2 (09:00→21:07)
[2016-07-26] MEDS: predniSONE 1 MG TABLET PO SCH (09:00)
[2016-07-26] MEDS: LEFLUNOMIDE 10 MG TABLET. PO SCH (09:00)
[2016-07-26] MEDS: sulfaSALAzine 500 MG TABLET PO SCH ×2 (09:00→21:07)
[2016-07-26] MEDS: FUROSEMIDE 40 MG TABLET. PO SCH (09:00)
[2016-07-26 09:02] LABS: HCO3 ABG 55 mmol/L (21-28); PH ABG 7.38 (7.35-7.45); PO2 ABG 309 mmHg (65-108); SAT O2 ABG 99 % (92-99)
[2016-07-26 09:06] LABS: PCO2 ABG 94 mmHg (35-46)
[2016-07-26] MEDS ORDERED: SUCCINYLCHOLINE 200 MG/10 ML VIAL. ONE (09:30)
--- NOTE | 2016-07-26 09:36 | PDOC ---
PROGRESS NOTES Chief Complaint Chief Complaint Acute on chronic hypoxic, hypercapnic respiratory failure 1. COPD exacerbation: improving very slowly. BiPAP Hs, she feels she has BELINDA 2. Acute bronchitis: cont levaquin 3. AMS: metabolic encephalopathy, hypercarbia, weakness 4. RA: on chronic low dose steroids, methotrexate and plaquenil. stop for acute illness, pt disabled and has 2 full-time paid caregivers at home 5. DVT prophylaxis. History of Present Illness History of Present Illness much worse this AM, confusion and lethargy transferred to ICU to be intubated was on NC, subjectively SOB, had been much better yesterday FULL code status was reviewed with patient on 07/24 and pt and sister on 07/25 Vitals Vitals Vital Signs Date Time Temp Pulse Resp B/P (MAP) Pulse Ox O2 Delivery O2 Flow Rate FiO2 07/26/16 07:20 BiPAP/CPAP 07/26/16 03:00 97.8 114 20 103/49 (67) 91 97.8 07/25/16 22:35 5.0 Physical Exam General: Alert, Cooperative, No acute distress Heart: Regular rate Lungs: Other (decrease bs) Abdomen: Normal bowel sounds, No tenderness Extremities: No clubbing, No edema Skin: No rashes Labs LABS Laboratory Tests Test 07/26/16 09:00 O2 Saturation 99 % (92-99) Arterial Blood pH 7.38 (7.35-7.45) Arterial Blood pCO2 at Patient Temp 94 mmHg (35-46) Arterial Blood pO2 at Patient Temp 309 mmHg (65-108) Arterial Blood HCO3 55 mmol/L (21-28) Arterial Blood Base Excess 26 mmol/L (-3-3) FiO2 100.0 Review of Systems Review of Systems no n.v.d Assessment and Plan Assessmemt and Plan Problems Medical Problems: (1) Acidosis Status: Acute (2) COPD (chronic obstructive pulmonary disease) Status: Acute Problems: Comment Review of Relevant I have reviewed the following items declan (where applicable) has been applied. Labs Laboratory Tests Test 07/25/16 05:00 07/26/16 09:00 Sodium Level 138 mmol/L (136-145) Potassium Level 3.4 mmol/L (3.5-5.1) Chloride Level 90 mmol/L (98-107) Carbon Dioxide Level > 45 mmol/L (21-32) Anion Gap (6-14) Blood Urea Nitrogen 13 mg/dL (7-20) Creatinine 0.8 mg/dL (0.6-1.0) Estimated GFR (Cockcroft-Gault) 72.9 Glucose Level 90 mg/dL (70-99) Calcium Level 8.7 mg/dL (8.5-10.1) O2 Saturation 99 % (92-99) Arterial Blood pH 7.38 (7.35-7.45) Arterial Blood pCO2 at Patient Temp 94 mmHg (35-46) Arterial Blood pO2 at Patient Temp 309 mmHg (65-108) Arterial Blood HCO3 55 mmol/L (21-28) Arterial Blood Base Excess 26 mmol/L (-3-3) FiO2 100.0 Laboratory Tests Test 07/26/16 09:00 O2 Saturation 99 % (92-99) Arterial Blood pH 7.38 (7.35-7.45) Arterial Blood pCO2 at Patient Temp 94 mmHg (35-46) Arterial Blood pO2 at Patient Temp 309 mmHg (65-108) Arterial Blood HCO3 55 mmol/L (21-28) Arterial Blood Base Excess 26 mmol/L (-3-3) FiO2 100.0 Microbiology 07/18/16 Blood Culture - Final, Complete NO GROWTH AFTER 5 DAYS Medications Current Medications Albuterol/ Ipratropium (Duoneb) 3 ml 1X ONCE NEB Last administered on 11:35; Start 07/18/16 at 11:00; Stop 07/18/16 at 11:01; Status DC Albuterol Sulfate (Ventolin Neb Soln) 2.5 mg 1X ONCE NEB ; Start 07/18/16 at 11: 00; Stop 07/18/16 at 11:01; Status DC Methylprednisolone Sodium Succinate (Solu-Medrol 125mg Vial) 125 mg 1X ONCE IV Last administered on 07/18/16 10:46; Start 07/18/16 at 11:00; Stop 07/18/16 at 11:01; Status DC Sodium Chloride 1,000 ml @ 1,000 mls/hr Q1H IV Last administered on 07/18/16 10:49; Start 07/18/16 at 11:00; Stop 07/18/16 at 11:59; Status DC Sodium Chloride (Normal Saline Flush) 10 ml QSHIFT PRN IV AFTER MEDS AND BLOOD DRAWS Last administered on 07/18/16 10:48; Start 07/18/16 at 10:45 Levofloxacin/ Dextrose 150 ml @ 100 mls/hr 1X ONCE IV Last administered on 12:01; Start 07/18/16 at 11:45; Stop 07/18/16 at 13:14; Status DC Potassium Chloride 100 ml @ 100 mls/hr Q1H IV Last administered on 07/18/16 13 :30; Start 07/18/16 at 12:30; Stop 07/18/16 at 14:29; Status DC Albuterol/ Ipratropium (Duoneb) 3 ml RTQID NEB Last administered on 07/26/16 08:25; Start 07/18/16 at 16:00 Enoxaparin Sodium (Lovenox 40mg Syringe) 40 mg Q24H SQ Last administered on 14:39; Start 07/18/16 at 14:00 Levofloxacin/ Dextrose 100 ml @ 100 mls/hr Q24H IV Last administered on 08:42; Start 07/19/16 at 09:00; Stop 07/25/16 at 12:56; Status DC Potassium Chloride 100 ml @ 100 mls/hr Q1H IV Last administered on 07/18/16 15 :50; Start 07/18/16 at 16:00; Stop 07/18/16 at 17:59; Status DC Acetaminophen (Tylenol) 325 mg PRN Q6HRS PRN PO MILD PAIN / TEMP Last administered on 07/24/16 18:27; Start 07/18/16 at 15:30 Hydralazine HCl (Apresoline) 10 mg PRN Q4HRS PRN IVP ELEVATED BP, SEE COMMENTS ; Start 07/18/16 at 15:30 Albuterol Sulfate (Ventolin Neb Soln) 2.5 mg PRN Q4HRS PRN NEB SHORTNESS OF BREATH Last administered on 07/24/16 03:46; Start 07/18/16 at 15:30 Oxycodone/ Acetaminophen (Percocet 5/325) 1 tab 1X ONCE PO Last administered on 07/18/16 21:33; Start 07/18/16 at 21:00; Stop 07/18/16 at 21:01; Status DC Potassium Chloride 100 ml @ 100 mls/hr Q1H IV Last administered on 07/19/16 01:32; Start 07/18/16 at 19:30; Stop 07/19/16 at 01:29; Status DC Hydroxychloroquine Sulfate (Plaquenil) 200 mg BID PO Last administered on 20:29; Start 07/18/16 at 21:00 Atorvastatin Calcium (Lipitor) 20 mg HS PO Last administered on 07/25/16 20:27 ; Start 07/19/16 at 21:00 Cetirizine HCl (Zyrtec) 10 mg DAILY PO Last administered on 07/25/16 08:42; Start 07/19/16 at 09:00 Fluticasone Propionate (Flonase) 2 spray DAILY NS Last administered on 08:44; Start 07/19/16 at 09:00 Folic Acid (Folic Acid) 2 mg DAILY PO Last administered on 07/25/16 08:43; Start 07/19/16 at 09:00 Furosemide (Lasix) 40 mg DAILY PO Last administered on 07/25/16 08:42; Start 07/19/16 at 09:00 Levothyroxine Sodium (Synthroid) 112 mcg DAILY07 PO Last administered on 05:14; Start 07/19/16 at 07:00 Metoprolol Succinate (Toprol Xl) 12.5 mg DAILY PO Last administered on 08:44; Start 07/19/16 at 09:00 Prednisone (Prednisone) 1 mg QID PO Last administered on 07/25/16 20:28; Start 07/19/16 at 09:00 Sulfasalazine (Azulfidine) 1,000 mg BID PO Last administered on 07/25/16 20:28 ; Start 07/19/16 at 09:00 Non-Formulary Medication 2 puff QID INH ; Start 07/19/16 at 09:00; Status UNV Salsalate (Salsalate) 750 mg BID PO Last administered on 07/25/16 20:29; Start 07/19/16 at 09:00 Leflunomide (Arava) 20 mg DAILY PO Last administered on 07/25/16 08:43; Start 07/19/16 at 09:00 Albuterol Sulfate (Ventolin Neb Soln) 2.5 mg RTQID NEB ; Start 07/19/16 at 08:00 ; Stop 07/19/16 at 09:38; Status DC Sodium Bicarbonate 50 meq 1X ONCE IV Last administered on 07/19/16 11:38; Start 07/19/16 at 10:30; Stop 07/19/16 at 10:31; Status DC Potassium Chloride (Klor-Con) 40 meq 1X ONCE PO Last administered on 11:20; Start 07/20/16 at 11:00; Stop 07/20/16 at 11:01; Status DC Oxycodone/ Acetaminophen (Percocet 5/325) 1 tab PRN BID PRN PO PAIN Last administered on 07/25/16 21:27; Start 07/20/16 at 11:15 Lorazepam (Ativan) 1 mg PRN Q6HRS PRN PO ANXIETY / AGITATION Last administered on 07/25/16 20:30; Start 07/21/16 at 19:45 Budesonide (Pulmicort) 0.5 mg RTBID NEB Last administered on 07/26/16 08:25; Start 07/22/16 at 11:00 Furosemide (Lasix) 20 mg 1X ONCE IVP Last administered on 07/22/16 14:47; Start 07/22/16 at 14:30; Stop 07/22/16 at 14:31; Status DC Info 1 ea CONT PRN PRN MC PER PROTOCOL; Start 07/22/16 at 14:15 Potassium Chloride (KCl Oral Soln) 40 meq 1X ONCE FT Last administered on 07/22 14:45; Start 07/22/16 at 15:00; Stop 07/22/16 at 15:01; Status DC Potassium Chloride (KCl Oral Soln) 40 meq 1X ONCE FT Last administered on 07/22 18:36; Start 07/22/16 at 18:30; Stop 07/22/16 at 18:31; Status DC Prochlorperazine Edisylate (Compazine) 5 mg PRN Q6HRS PRN IV NAUSEA Last administered on 07/25/16 18:26; Start 07/22/16 at 18:30 Levofloxacin (Levaquin) 500 mg DAILY06 PO Last administered on 5/17/17at 05:14 ; Start 07/26/16 at 06:00 Norepinephrine Bitartrate 250 ml @ 0 mls/hr CONT PRN IV SEE I/O RECORD; Start 07/26/16 at 09:15; Status UNV Active Scripts Active Reported Lipitor (Atorvastatin Calcium) 20 Mg Tablet 20 Mg PO HS Zyrtec (Cetirizine Hcl) 10 Mg Tablet 1 Tab PO DAILY Fluticasone Propionate Nasal [place] (Fluticasone Propionate) 16 Gm Secor.susp 2 Secor NS DAILY Lasix (Furosemide) 40 Mg Tablet 1 Tab PO DAILY Folic Acid 1 Mg Tablet 2 Tab PO DAILY Ventolin Hfa Inhaler (Albuterol Sulfate) 18 Gm Hfa.aer.ad 2 Puff INH QID Leflunomide 20 Mg Tablet 20 Mg PO DAILY Metoprolol Succinate ( Xl ) (Metoprolol Succinate) 25 Mg Tab.er.24h 0.5 Tab PO DAILY Levothyroxine Sodium 112 Mcg Tablet 112 Mcg PO DAILY Diflunisal 500 Mg Tablet 500 Mg PO BID Sulfasalazine 500 Mg Tablet 1,000 Mg PO BID Prednisone 1 Mg Tablet 1 Mg PO QID Vitals/I & O Vital Sign - Last 24 Hours 07/25/16 07/25/16 07/25/16 07/25/16 10:56 11:08 15:00 15:35 Temp 97.7 97.8 97.7 97.8 Pulse 113 108 Resp 19 19 B/P (MAP) 121/53 (75) 128/62 (84) Pulse Ox 97 98 O2 Delivery Nasal Cannula Nasal Cannula Nasal Cannula Nasal Cannula O2 Flow Rate 5.0 5.0 5.0 5.0 07/25/16 07/25/16 07/25/16 07/25/16 16:32 16:43 17:47 19:00 Temp 97.7 97.7 Pulse 123 Resp 20 B/P (MAP) 139/73 (95) Pulse Ox 88 O2 Delivery Room Air Nasal Cannula Nasal Cannula Nasal Cannula O2 Flow Rate 5.0 5.0 5.0 07/25/16 07/25/16 07/25/16 07/25/16 19:35 19:38 20:00 21:27 Resp 20 Pulse Ox 90 90 90 O2 Delivery Nasal Cannula Nasal Cannula Nasal Cannula Nasal Cannula O2 Flow Rate 5.0 5.0 5.0 5.0 07/25/16 07/25/16 07/26/16 07/26/16 22:12 22:35 00:42 03:00 Temp 97.9 97.8 97.9 97.8 Pulse 116 114 Resp 20 20 B/P (MAP) 139/64 (89) 103/49 (67) Pulse Ox 89 91 O2 Delivery BiPAP/CPAP Nasal Cannula BiPAP/CPAP BiPAP/CPAP O2 Flow Rate 5.0 07/26/16 07/26/16 07/26/16 03:30 05:05 07:20 O2 Delivery BiPAP/CPAP BiPAP/CPAP BiPAP/CPAP Intake and Output 07/25/16 07/25/16 07/26/16 15:00 23:00 07:00 Intake Total 120 ml 425 ml Output Total 75 ml 225 ml 0 ml Balance 45 ml 200 ml 0 ml PRANAV SON MD July 26, 2016 09:36
[2016-07-26] MEDS ORDERED: fentaNYL PF VIAL 100 MCG/2 ML VIAL ONE ×2 (09:40→12:00)
[2016-07-26] MEDS ORDERED: VANCOMYCIN 1.25 GM in IV NORMAL SALINE 250ML 250 ML IV ONE (09:45)
[2016-07-26] MEDS ORDERED: VANCOMYCIN PER PHARMACY MC PRN (09:45)
[2016-07-26] MEDS: PHENYLEPHRINE INJ 80 MG in IV NORMAL SALINE 250ML 250 ML IV PRN ×2 (10:32→17:31)
[2016-07-26] MEDS: NOREPINEPHRIN PREMIX 250 ML IV PRN (10:33)
[2016-07-26] MEDS ORDERED: MIDAZOLAM PREMIX 100 ML IV ONE (10:45)
--- NOTE | 2016-07-26 11:01 | PDOC ---
PULMONARY PROGRESS NOTES Subjective intubated,sedated this am failed BIPAP, was unresponsive this am took ativan, oxycodone last night now in shock as well Vitals Vital Signs Date Time Temp Pulse Resp B/P (MAP) Pulse Ox O2 Delivery O2 Flow Rate FiO2 07/26/16 09:30 100 Ventilator 07/26/16 03:00 97.8 114 20 103/49 (67) 97.8 07/25/16 22:35 5.0 Comments ros as mentioned as above other sys otherwise neg HEENT: Other (nc at perrl, shallow oropharynx nose clear) Lungs: Other (decrease bs) Cardiovascular: S1 Abdomen: Soft, Non-tender Extremities: Other (trace edema) Skin: Warm Labs Laboratory Tests Test 07/25/16 05:00 07/26/16 09:00 Sodium Level 138 mmol/L (136-145) Potassium Level 3.4 mmol/L (3.5-5.1) Chloride Level 90 mmol/L (98-107) Carbon Dioxide Level > 45 mmol/L (21-32) Anion Gap (6-14) Blood Urea Nitrogen 13 mg/dL (7-20) Creatinine 0.8 mg/dL (0.6-1.0) Estimated GFR (Cockcroft-Gault) 72.9 Glucose Level 90 mg/dL (70-99) Calcium Level 8.7 mg/dL (8.5-10.1) O2 Saturation 99 % (92-99) Arterial Blood pH 7.38 (7.35-7.45) Arterial Blood pCO2 at Patient Temp 94 mmHg (35-46) Arterial Blood pO2 at Patient Temp 309 mmHg (65-108) Arterial Blood HCO3 55 mmol/L (21-28) Arterial Blood Base Excess 26 mmol/L (-3-3) FiO2 100.0 Laboratory Tests Test 07/26/16 09:00 O2 Saturation 99 % (92-99) Arterial Blood pH 7.38 (7.35-7.45) Arterial Blood pCO2 at Patient Temp 94 mmHg (35-46) Arterial Blood pO2 at Patient Temp 309 mmHg (65-108) Arterial Blood HCO3 55 mmol/L (21-28) Arterial Blood Base Excess 26 mmol/L (-3-3) FiO2 100.0 Medications Active Scripts Medications Dose Route/Sig Max Daily Dose Days Date Category Lipitor (Atorvastatin Calcium) 20 Mg Tablet 20 Mg PO HS 07/18/16 Reported Zyrtec (Cetirizine Hcl) 10 Mg Tablet 1 Tab PO DAILY 07/18/16 Reported Fluticasone Propionate Nasal [place] (Fluticasone Propionate) 16 Gm [place].susp 2 [place] NS DAILY 07/18/16 Reported Lasix (Furosemide) 40 Mg Tablet 1 Tab PO DAILY 07/18/16 Reported Folic Acid 1 Mg Tablet 2 Tab PO DAILY 07/18/16 Reported Ventolin Hfa Inhaler (Albuterol Sulfate) 18 Gm Hfa.aer.ad 2 Puff INH QID 07/18/16 Reported Leflunomide 20 Mg Tablet 20 Mg PO DAILY 07/18/16 Reported Metoprolol Succinate ( Xl ) (Metoprolol Succinate) 25 Mg Tab.er.24h 0.5 Tab PO DAILY 07/18/16 Reported Levothyroxine Sodium 112 Mcg Tablet 112 Mcg PO DAILY 04/19/13 Reported Diflunisal 500 Mg Tablet 500 Mg PO BID 04/19/13 Reported Sulfasalazine 500 Mg Tablet 1,000 Mg PO BID 04/19/13 Reported Prednisone 1 Mg Tablet 1 Mg PO QID 04/19/13 Reported Comments cxr reviewed 07/26 will pull ET back, Impression . 1. Acute on chronic hypoxic and hypercapnic respiratory failure POA, now intubated for toxic encephalopathy and shock. 2. Underlying severe chronic obstructive pulmonary disease with chronic respiratory failure, now with acute on chronic respiratory failure. 3. History of rheumatoid arthritis, on chronic steroids and methotrexate. 4. Shock, combination of hypovolemic, septic, ? adrenal suppression 5. Chronic benzodiazepine and narcotic use. She uses oxycodone and diazepam regularly, which may have contributed to her encephalopathy. 6. Acute encephalopathy related to medication effect and also hypercapnia. Plan . 1. AC mode 2. Fluid challenge, pressors 3. empiric antibiotic. 4. Stress dose steroids 5. wean pressors if possible 6. Continue methotrexate for rheumatoid arthritis. 7. DVT prophylaxis. 8. supportive care 9. bronchodilator, Discussed with RN,/ entire family. DNR for now and if no improvement in 24 hrs, withdrawl of care cct 40 min ELO SANCHEZ MD July 26, 2016 11:01
--- NOTE | 2016-07-26 11:08 | RAD ---
Examination: Single frontal view the chest History: History of ET tube and feeding tube placement Comparison: 07/22/2016 Findings: Unchanged mild cardiomegaly. There is minimal prominence of bilateral perihilar bronchovascular markings likely mild congestive changes. The ET tube tip is at the delonte slightly directed to the right mainstem bronchus.. The feeding tube is seen below the level of the diaphragm with the tip projecting in the region of the body of the stomach. Impression: 1. The ET tube tip in the trachea at the level of the delonte slightly directed to the right mainstem bronchus. Consider retraction of the ET tube by 1.5 cm. The feeding tube is in place. 2. Mild prominent appearing bilateral interstitial lung markings likely mild congestive changes. Patient nurse was informed of the findings.
--- NOTE | 2016-07-26 11:14 | PN ---
DATE: CRITICAL CARE NOTE SUBJECTIVE: The patient had rapid response call this morning as she was found to be unresponsive. She did receive her oxycodone and Ativan last night. The patient was placed on BiPAP, but because of her mental status with unresponsive state, she was intubated by the ER staff. Post-intubation arterial blood gases revealed a pH of 7.38, pCO2 of 94 and a pO2 of 309 on 100% FiO2. She is currently on assist control mode. She is also very hypotensive despite receiving IV fluids of 1 liter. She has currently maxed out on Levophed at 30 mcg and now on Javy-Synephrine as well. She is on broad-spectrum antibiotics. The patient has been on prednisone oral along with hydroxychloroquine for her rheumatoid arthritis. I had a lengthy discussion with the patient's entire family at the bedside. I did discuss with them the critical illness of shock and respiratory failure. I also explained to them that her needs for chronic use of narcotics and benzodiazepine will always put her at risk for respiratory failure. The patient's family has indicated that they do not want her to continue to live like this and they would not have wanted any CPR or defibrillation. They all agreed to make her DNR. They also agreed that if the patient does not turn around in the next 24 hours, then they would consider withdrawal of care. I did inform them that I will try to see if I can wean off the pressors and do more fluid resuscitation and also add stress dose steroids and they are all agreeable with that. Discussed with RN and RT as well. We will follow ABGs. Chest x-ray was reviewed. The endotracheal tube is at the delonte, which will be pulled back. Otherwise, no pneumothorax seen. CCT 40 MIN ELO SANCHEZ MD DR: CORNELIUS/mariah JOB#: [id number] / [id number] YOANNA
--- NOTE | 2016-07-26 11:44 | PDOC ---
Infectious Disease Note ROS ROS Vital Sign Vital Signs Vital Signs Date Time Temp Pulse Resp B/P (MAP) Pulse Ox O2 Delivery O2 Flow Rate FiO2 07/26/16 10:53 98 Ventilator 07/26/16 09:45 128 83/60 (68) 07/26/16 03:00 97.8 20 97.8 07/25/16 22:35 5.0 Labs Lab Laboratory Tests Test 07/26/16 09:00 O2 Saturation 99 % (92-99) Arterial Blood pH 7.38 (7.35-7.45) Arterial Blood pCO2 at Patient Temp 94 mmHg (35-46) Arterial Blood pO2 at Patient Temp 309 mmHg (65-108) Arterial Blood HCO3 55 mmol/L (21-28) Arterial Blood Base Excess 26 mmol/L (-3-3) FiO2 100.0 Objective Assessment Acute resp failure Shock Fever PCN allergy - can take Keflex (mild gi upset) RA - immunosuppression Plan Plan of Care STAT blood /urine/sputum cult Lactic/procalcitonin Cont Vanc Change to Cefepime/Flagyl/Micafungin Hold levofloxacin F/u labs and cults Labs in am Reviewed previous records D/w family 35 mins CC time Thank you # [id number] CHINA TRIPLETT MD July 26, 2016 11:44
[2016-07-26] MEDS ORDERED: DEXTROSE 50% 25 GM / 50ML DISP.SYRIN. IV ONE ×2 (12:00→15:16)
[2016-07-26 12:11] LABS: BASO # 0.1 x10^3/uL (0.0-0.2); BASO % 0 % (0-3); EOS % 0 % (0-3); HEMATOCRIT 31.3 % (36.0-47.0); HEMOGLOBIN 9.2 g/dL (12.0-15.5); LYMPH % 7 % (24-48); MEAN CORPUSCULAR HEMOGLOBIN 32 pg (25-35); MEAN CORPUSCULAR HGB CONC 30 g/dL (31-37); MEAN CORPUSCULAR VOLUME 109 fL (79-100); MONO % 14 % (0-9); NEUT % 79 % (31-73); PLATELET COUNT 342 x10^3/uL (140-400); RED BLOOD COUNT 2.88 x10^6/uL (3.50-5.40); RED CELL DISTRIBUTION WIDTH 20.3 % (11.5-14.5); WHITE BLOOD COUNT 14.8 x10^3/uL (4.0-11.0)
[2016-07-26] MEDS ORDERED: LIDOCAINE 1% / SOD BICARB 8.4% 20 ML VIAL. IJ ONE ×2 (12:46→13:00)
--- NOTE | 2016-07-26 13:21 | PDOC ---
Exam Template Maker Template Maker Kandi Chha Chha F Ndumbu Pre-Procedure Diagnosis Pre-Procedure Diagnosis 60 YO female ICU patient with respiratory failure and shock. Bedside CVC insertion requested for pressors, steroids and abx. Post-Procedure Diagnosis Post-Procedure Diagnosis Same Procedure Performed Procedure Performed Bedside ICU sono guided CVC insertion Type of Anesthesia Type of Anesthesia Local Estimated Blood Loss EBL: Trace Drain/Tubes Drains/Tubes Right IJ 7F 3L 20cm Power Injectable CVC Condition of Patient Condition of Patient No change. No apparent complication. Disposition Disposition STAT pCXR requested for CVC position. Full report to follow. LYNDSAY ANDERSON MD July 26, 2016 13:21
--- NOTE | 2016-07-26 14:02 | RAD ---
Portable chest, 07/26/2016, 1:32 PM: History: Check central line placement Comparison is made to the study of earlier the same day. A right jugular central venous catheter has been inserted extending to the level of the atriocaval junction. The ETT tip lies just above the level the delonte. An NG tube extends into the stomach. The heart size is unchanged. The pulmonary vascularity is normal. No pulmonary infiltrates are evident. There is no evidence of pleural fluid or pneumothorax. IMPRESSION: 1. Interval insertion of a right jugular central venous catheter in satisfactory position. 2. Low position of the ET tube with its tip near the delonte. Withdrawal approximately 2 cm is suggested. 3. The NG tube is in satisfactory position. 4. No acute cardiopulmonary abnormality
[2016-07-26] MEDS: MICAFUNGIN 100 MG in IV DEXTROSE 5% 100 ML IV SCH (14:29)
[2016-07-26] MEDS: CEFEPIME HCL 1 GM in IV NORMAL SALINE 50ML 50 ML IV SCH ×2 (14:30→21:52)
[2016-07-26] MEDS: HYDROCORTISONE SOD SUCC/PF 100 MG/2 ML VIAL. IV SCH ×2 (14:33→21:52)
[2016-07-26] MEDS: ENOXAPARIN 40 MG/0.4 ML SYRINGE. SQ SCH (14:34)
[2016-07-26 14:53] LABS: BILIRUBIN,URINE SMALL (NEG); GLUCOSE,URINE NEGATIVE (NEG); NITRITE,URINE NEGATIVE (NEG); PH,URINE 5.5; PROTEIN,URINE 100 mg/dL (NEG-TRACE); UROBILINOGEN,URINE 0.2 mg/dL (0.2 mg/dL)
[2016-07-26 14:56] LABS: ALBUMIN 2.1 g/dL (3.4-5.0); ALBUMIN/GLOBULIN RATIO 0.6 (1.0-1.7); CALCIUM 7.9 mg/dL (8.5-10.1); CREATININE 1.9 mg/dL (0.6-1.0); GFR 26.9; POTASSIUM 3.8 mmol/L (3.5-5.1); TOTAL BILIRUBIN 0.9 mg/dL (0.2-1.0); TOTAL PROTEIN 5.9 g/dL (6.4-8.2)
[2016-07-26 15:09] LABS: BACTERIA,URINE FEW /HPF (0-FEW); RBC,URINE 0 /HPF (0-2); SQUAMOUS EPITHELIAL CELL,UR MANY /LPF; WBC,URINE OCC /HPF (0-4)
[2016-07-26] MEDS: ACETAMINOPHEN 325 MG SUPP.RECT. PR PRN ×2 (17:32→23:50)
[2016-07-26 19:04] LABS: POTASSIUM 3.9 mmol/L (3.5-5.1)
[2016-07-26] MEDS ORDERED: IV DEXTROSE 5% 1,000 ML IV SCH (19:30)
[2016-07-26 19:34] LABS: ALBUMIN 2.1 g/dL (3.4-5.0); ALBUMIN/GLOBULIN RATIO 0.7 (1.0-1.7); CALCIUM 7.5 mg/dL (8.5-10.1); CREATININE 2.1 mg/dL (0.6-1.0); GFR 23.9; TOTAL BILIRUBIN 0.9 mg/dL (0.2-1.0); TOTAL PROTEIN 5.2 g/dL (6.4-8.2)
[2016-07-26] MEDS: ATORVASTATIN CALCIUM 20 MG TABLET PO SCH (21:07)
[2016-07-27] VITALS (25 sets, daily range): BP systolic 44–190; BP diastolic 22–154
[2016-07-27] MEDS: PHENYLEPHRINE INJ 80 MG in IV NORMAL SALINE 250ML 250 ML IV PRN ×2 (00:18→07:27)
[2016-07-27] MEDS: NOREPINEPHRIN PREMIX 250 ML IV PRN ×3 (00:29→16:22)
--- NOTE | 2016-07-27 01:34 | CONS ---
DATE OF CONSULTATION: 07/26/2016 ROOM: ICU 4. REQUESTING PHYSICIAN: Dr. Nichols. REASON FOR CONSULTATION: Sepsis and respiratory failure. HISTORY OF PRESENT ILLNESS: The patient is a 60-year-old female who has a history of rheumatoid arthritis, she is immunosuppressed. She has COPD and takes chronic narcotics and benzodiazepines. She was admitted to [facility] secondary to increased shortness of air. She was placed on BiPAP. She has remained on BiPAP overnight for acute on chronic hypoxic hypercapnic respiratory failure and some suspected bronchitis. She was initially on empiric antibiotics had been continued on steroids. She initially received a dose of Solu-Medrol, levofloxacin at arrival. This morning, a rapid response was called as she was found unresponsive, but she did have a pulse. She subsequently was transferred to the Intensive Care Unit and is undergone intubation. Blood pressures dropped as low as ____, currently she does have a fever over 101 degrees. I have been consulted and discussed with her family, her situation. Antibiotics have been instituted including vancomycin as well as levofloxacin. PAST MEDICAL HISTORY: Positive for chronic respiratory failure, history of severe COPD, rheumatoid arthritis, immunosuppression with chronic steroids and methotrexate, chronic narcotic use, history of breast cancer. PAST SURGICAL HISTORY: Positive for cholecystectomy, hip replacement, knee replacement, neck surgery. ALLERGIES: LISTED PENICILLIN, AMOXICILLIN, BUT HAS TOLERATED, CEPHALEXIN, ALTHOUGH DID UPSET HER STOMACH LITTLE BIT ALSO MORPHINE IS LISTED. SOCIAL HISTORY: She smoked for 35 years, quit 5 years ago. FAMILY HISTORY: Noncontributory. CURRENT MEDICATIONS: Again include vancomycin, levofloxacin have been instituted, Tylenol, albuterol, Lipitor, Pulmicort, Zyrtec, Lasix, hydralazine, Atrovent, Synthroid, metoprolol, prednisone. PHYSICAL EXAMINATION: VITAL SIGNS: Current temperature is over 100 degrees. She is intubated and sedated. She has a feeding tube. HEENT: Pupils are reactive. She appears to have some cataracts. She had normal conjunctivae. NECK: Without JVD, supple. LUNGS: Coarse bilaterally. HEART: S1, S2. ABDOMEN: Soft, nontender, mildly distended. Meek is in place. EXTREMITIES: No clubbing, cyanosis or gross edema. SKIN: Warm to touch without signs of rash. NEUROLOGIC: She is intubated. LABORATORY DATA: From the , white count 8.2, hemoglobin 9, platelets of 216, neutrophils 80%. Most recent creatinine of 0.8, glucose of 90. Urinalysis from the not consistent with urinary tract infection. MRSA screen from the is negative. Influenza screen was negative. On recent chest x-ray, she has prominent bilateral interstitial lung markings likely congestive changes. IMPRESSION: 1. Acute respiratory failure. 2. Shock. 3. Fever. 4. Penicillin allergy, but can take Keflex causing mild gastrointestinal upset. 5. Rheumatoid arthritis with immunosuppression. RECOMMENDATIONS: Obtain stat blood, urine and sputum cultures, lactic acid as well as a procalcitonin. I continue with vancomycin given her history of a penicillin allergy, I did review with her family, anytime she does get ill, she does get Cipro, levofloxacin, azithromycin etc. Therefore she is at risk for some resistance with these antibiotics, we will change her to cefepime and also add Flagyl for potential aspiration. Given her immunosuppression we will add micafungin. Hold further levofloxacin. We will follow up labs and cultures. We will obtain laboratory values in the morning. I did review her previous records from her previous admissions did discuss with her family. I spent 35 minutes of critical care time. Thank you for allowing me to participate in this patient's care. If you have any questions, please do not hesitate to contact me. CHINA TRIPLETT MD DR: JASON/mariah JOB#: [id number] / [id number]
[2016-07-27 05:53] LABS: BASO # 0.1 x10^3/uL (0.0-0.2); BASO % 1 % (0-3); EOS % 0 % (0-3); HEMATOCRIT 29.1 % (36.0-47.0); HEMOGLOBIN 9.1 g/dL (12.0-15.5); LYMPH # 0.4 x10^3/uL (1.0-4.8); LYMPH % 2 % (24-48); MEAN CORPUSCULAR HEMOGLOBIN 32 pg (25-35); MEAN CORPUSCULAR HGB CONC 31 g/dL (31-37); MONO % 5 % (0-9); NEUT % 92 % (31-73); PLATELET COUNT 429 x10^3/uL (140-400); RED BLOOD COUNT 2.84 x10^6/uL (3.50-5.40); RED CELL DISTRIBUTION WIDTH 20.2 % (11.5-14.5); WHITE BLOOD COUNT 19.7 x10^3/uL (4.0-11.0)
[2016-07-27] MEDS: CEFEPIME HCL 1 GM in IV NORMAL SALINE 50ML 50 ML IV SCH (06:24)
[2016-07-27] MEDS: HYDROCORTISONE SOD SUCC/PF 100 MG/2 ML VIAL. IV SCH ×2 (06:24→14:15)
[2016-07-27] MEDS: LEVOTHYROXINE 112 MCG TABLET PO SCH (06:24)
[2016-07-27 06:40] LABS: ALBUMIN/GLOBULIN RATIO 0.6 (1.0-1.7); CALCIUM 7.2 mg/dL (8.5-10.1); CREATININE 2.6 mg/dL (0.6-1.0); GFR 18.7; POTASSIUM 3.7 mmol/L (3.5-5.1); TOTAL BILIRUBIN 1.4 mg/dL (0.2-1.0); TOTAL PROTEIN 5.6 g/dL (6.4-8.2)
[2016-07-27 06:43] LABS: MEAN CORPUSCULAR VOLUME 102 fL (79-100)
--- NOTE | 2016-07-27 07:01 | RAD ---
Bedside ultrasound guided Central Venous Catheter placement Indication: 60-year-old female ICU patient with respiratory failure, shock, and hypotension. Bedside central venous catheter insertion has been requested for pressors. Anesthesia: Local only Sterility: All elements of maximal sterile barrier technique were utilized, including cap, mask, sterile gown, sterile gloves, large sterile sheet, appropriate hand hygiene, and 2% chlorhexidine for cutaneous antisepsis. Procedure: Informed consent was obtained from the patient's sister. This procedure was performed bedside in ICU. Preliminary ultrasound examination of right neck revealed wide patency of right internal jugular vein, which was documented with a single hard copy ultrasound image. Right neck was then prepped and draped in the usual sterile fashion, utilizing all elements of maximal sterile barrier technique, as described above. Using aseptic technique, local anesthesia, direct ultrasound guidance, and the micropuncture technique, successful entry was made into right internal jugular vein. The right IJ venostomy tract was then dilated and a 7 [place] triple lumen 20 cm power injectable CVC was easily advanced centrally over an angiographic guidewire. The CVC was then demonstrated to flush and aspirate normally, and was secured at the skin exit site using suture and sterile dressing. Patient tolerated the procedure well, without apparent complication. A STAT portable CXR was requested for CVC position. Impression: Successful, uneventful sono guided placement of right IJ power injectable 7 [place] triple lumen 20 cm CVC, bedside in ICU, as described.
--- NOTE | 2016-07-27 07:19 | PDOC ---
Infectious Disease Note Subjective Subjective Intubated/Light to mod sedation ROS ROS Unobtainable Vital Sign Vital Signs Vital Signs Date Time Temp Pulse Resp B/P (MAP) Pulse Ox O2 Delivery O2 Flow Rate FiO2 07/27/16 06:00 110 16 126/72 (90) 100 Ventilator 07/27/16 04:00 99.8 99.8 Physical Exam PHYSICAL EXAM GENERAL: NAD, Intubated. 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 no focal neurologic deficit SKIN: No rash IV: RIJ Labs Lab Laboratory Tests Test 07/26/16 09:00 07/26/16 12:05 07/26/16 14:15 07/26/16 15:43 O2 Saturation 99 % (92-99) Arterial Blood pH 7.38 (7.35-7.45) Arterial Blood pCO2 at Patient Temp 94 mmHg (35-46) Arterial Blood pO2 at Patient Temp 309 mmHg (65-108) Arterial Blood HCO3 55 mmol/L (21-28) Arterial Blood Base Excess 26 mmol/L (-3-3) FiO2 100.0 White Blood Count 14.8 x10^3/uL (4.0-11.0) Red Blood Count 2.88 x10^6/uL (3.50-5.40) Hemoglobin 9.2 g/dL (12.0-15.5) Hematocrit 31.3 % (36.0-47.0) Mean Corpuscular Volume 109 fL (79-100) Mean Corpuscular Hemoglobin 32 pg (25-35) Mean Corpuscular Hemoglobin Concent 30 g/dL (31-37) Red Cell Distribution Width 20.3 % (11.5-14.5) Platelet Count 342 x10^3/uL (140-400) Neutrophils (%) (Auto) 79 % (31-73) Lymphocytes (%) (Auto) 7 % (24-48) Monocytes (%) (Auto) 14 % (0-9) Eosinophils (%) (Auto) 0 % (0-3) Basophils (%) (Auto) 0 % (0-3) Neutrophils # (Auto) 11.6 x10^3uL (1.8-7.7) Lymphocytes # (Auto) 1.0 x10^3/uL (1.0-4.8) Monocytes # (Auto) 2.1 x10^3/uL (0.0-1.1) Eosinophils # (Auto) 0.0 x10^3/uL (0.0-0.7) Basophils # (Auto) 0.1 x10^3/uL (0.0-0.2) Urine Collection Type Unknown Urine Color Dk yellow Urine Clarity Clear Urine pH 5.5 Urine Specific [place] 1.020 Urine Protein 100 mg/dL (NEG-TRACE) Urine Glucose (UA) Negative mg/dL (NEG) Urine Ketones (Stick) Negative mg/dL (NEG) Urine Blood Negative (NEG) Urine Nitrite Negative (NEG) Urine Bilirubin Small (NEG) Urine Urobilinogen Dipstick 0.2 mg/dL (0.2 mg/dL) Urine Leukocyte Esterase Small (NEG) Urine RBC 0 /HPF (0-2) Urine WBC Occ /HPF (0-4) Urine Squamous Epithelial Cells Many /LPF Urine Renal Epithelial Cells Few /LPF Urine Bacteria Few /HPF (0-FEW) Urine Hyaline Casts Many /HPF Sodium Level 140 mmol/L (136-145) Potassium Level 3.8 mmol/L (3.5-5.1) Chloride Level 94 mmol/L (98-107) Carbon Dioxide Level 39 mmol/L (21-32) Anion Gap 7 (6-14) Blood Urea Nitrogen 29 mg/dL (7-20) Creatinine 1.9 mg/dL (0.6-1.0) Estimated GFR (Cockcroft-Gault) 26.9 BUN/Creatinine Ratio 15 (6-20) Glucose Level 32 mg/dL (70-99) Lactic Acid Level 7.6 mmol/L (0.4-2.0) Calcium Level 7.9 mg/dL (8.5-10.1) Total Bilirubin 0.9 mg/dL (0.2-1.0) Aspartate Amino Transf (AST/SGOT) 41136 U/L (15-37) Alanine Aminotransferase (ALT/SGPT) 3939 U/L (14-59) Alkaline Phosphatase 80 U/L (46-116) Total Protein 5.9 g/dL (6.4-8.2) Albumin 2.1 g/dL (3.4-5.0) Albumin/Globulin Ratio 0.6 (1.0-1.7) Procalcitonin 2.75 ng/mL (0.00-0.10) Glucose (Fingerstick) 67 mg/dL (70-99) Test 07/26/16 18:38 07/26/16 19:25 07/26/16 21:36 07/26/16 22:31 Sodium Level 137 mmol/L (136-145) Potassium Level 3.9 mmol/L (3.5-5.1) Chloride Level 93 mmol/L (98-107) Carbon Dioxide Level 34 mmol/L (21-32) Anion Gap 10 (6-14) Blood Urea Nitrogen 32 mg/dL (7-20) Creatinine 2.1 mg/dL (0.6-1.0) Estimated GFR (Cockcroft-Gault) 23.9 BUN/Creatinine Ratio 15 (6-20) Glucose Level 86 mg/dL (70-99) Lactic Acid Level 7.5 mmol/L (0.4-2.0) Calcium Level 7.5 mg/dL (8.5-10.1) Total Bilirubin 0.9 mg/dL (0.2-1.0) Aspartate Amino Transf (AST/SGOT) 52936 U/L (15-37) Alanine Aminotransferase (ALT/SGPT) 5013 U/L (14-59) Alkaline Phosphatase 81 U/L (46-116) Total Protein 5.2 g/dL (6.4-8.2) Albumin 2.1 g/dL (3.4-5.0) Albumin/Globulin Ratio 0.7 (1.0-1.7) Glucose (Fingerstick) 66 mg/dL (70-99) 59 mg/dL (70-99) 89 mg/dL (70-99) Test 07/26/16 23:40 07/27/16 00:34 07/27/16 02:40 07/27/16 05:40 Glucose (Fingerstick) 60 mg/dL (70-99) 87 mg/dL (70-99) 94 mg/dL (70-99) White Blood Count 19.7 x10^3/uL (4.0-11.0) Red Blood Count 2.84 x10^6/uL (3.50-5.40) Hemoglobin 9.1 g/dL (12.0-15.5) Hematocrit 29.1 % (36.0-47.0) Mean Corpuscular Volume 102 fL (79-100) Mean Corpuscular Hemoglobin 32 pg (25-35) Mean Corpuscular Hemoglobin Concent 31 g/dL (31-37) Red Cell Distribution Width 20.2 % (11.5-14.5) Platelet Count 429 x10^3/uL (140-400) Neutrophils (%) (Auto) 92 % (31-73) Lymphocytes (%) (Auto) 2 % (24-48) Monocytes (%) (Auto) 5 % (0-9) Eosinophils (%) (Auto) 0 % (0-3) Basophils (%) (Auto) 1 % (0-3) Neutrophils # (Auto) 18.1 x10^3uL (1.8-7.7) Lymphocytes # (Auto) 0.4 x10^3/uL (1.0-4.8) Monocytes # (Auto) 1.0 x10^3/uL (0.0-1.1) Eosinophils # (Auto) 0.1 x10^3/uL (0.0-0.7) Basophils # (Auto) 0.1 x10^3/uL (0.0-0.2) Sodium Level 132 mmol/L (136-145) Potassium Level 3.7 mmol/L (3.5-5.1) Chloride Level 91 mmol/L (98-107) Carbon Dioxide Level 31 mmol/L (21-32) Anion Gap 10 (6-14) Blood Urea Nitrogen 38 mg/dL (7-20) Creatinine 2.6 mg/dL (0.6-1.0) Estimated GFR (Cockcroft-Gault) 18.7 BUN/Creatinine Ratio 15 (6-20) Glucose Level 146 mg/dL (70-99) Lactic Acid Level 5.0 mmol/L (0.4-2.0) Calcium Level 7.2 mg/dL (8.5-10.1) Total Bilirubin 1.4 mg/dL (0.2-1.0) Aspartate Amino Transf (AST/SGOT) 11848 U/L (15-37) Alanine Aminotransferase (ALT/SGPT) 4893 U/L (14-59) Alkaline Phosphatase 106 U/L (46-116) Total Protein 5.6 g/dL (6.4-8.2) Albumin 2.0 g/dL (3.4-5.0) Albumin/Globulin Ratio 0.6 (1.0-1.7) Test 07/27/16 05:41 Glucose (Fingerstick) 144 mg/dL (70-99) Objective Assessment Acute resp failure - intubated Shock - on Levophed and Javy/solucortef. Elevated LFTs/Lactic acidosis Fever TRAY - with decreased UOP only 85 ml total since transfer to ICU PCN allergy - can take Keflex (mild gi upset) RA - immunosuppression Plan Plan of Care No obvious source of infection - UA is ? positive. CXR is clear from 07/26. May need imaging ie. CT abd/pelvis with at least oral contrast if possible, if stable enough from critical care standpoint. Await Pulm f/u F/u blood /urine/sputum cult CXR/CK this am Discont Vanc with renal failure and worsening status/Cefepime Add Zyvox/Meropenem to cover potential resistant bacteria Cont Micafungin/Flagyl for now F/u labs and cults Labs in am Guarded prognosis CHINA TRIPLETT MD July 27, 2016 07:19
[2016-07-27] MEDS: IPRATRPIUM/ALBUTEROL 0.5/2.5MG 3 ML NEBU. NEB SCH ×3 (07:36→13:53)
[2016-07-27] MEDS: BUDESONIDE 0.5 MG/2 ML NEBU. NEB SCH (07:36)
[2016-07-27] MEDS ORDERED: MINERAL OIL/PETROLATUM,WHITE OPHTH OINT 3.5GM TUBE. OU PRN (07:45)
[2016-07-27 07:51] LABS: NUCLEATED RBC 11; PLT ESTIMATE INCREASED (ADEQUATE)
[2016-07-27 07:52] LABS: HCO3 ABG 33 mmol/L (21-28); PCO2 ABG 39 mmHg (35-46); PH ABG 7.54 (7.35-7.45); PO2 ABG 101 mmHg (65-108); SAT O2 ABG 97 % (92-99)
[2016-07-27 07:52] LABS: ANISOCYTOSIS MOD
[2016-07-27 07:54] LABS: FIO2 ABG 35%
[2016-07-27] MEDS: CETIRIZINE HCL 10 MG TABLET. PO SCH (08:40)
[2016-07-27] MEDS: SALSALATE 750 MG PO SCH (08:40)
[2016-07-27] MEDS: FOLIC ACID 1 MG TABLET. PO SCH (08:40)
[2016-07-27] MEDS: MEROPENEM 500 MG in IV NORMAL SALINE 50ML 50 ML IV SCH ×2 (08:41→14:15)
[2016-07-27] MEDS: sulfaSALAzine 500 MG TABLET PO SCH (08:41)
--- NOTE | 2016-07-27 08:42 | RAD ---
Portable chest, 07/27/2016: History: Respiratory failure, intubation Comparison is made to yesterday's study at 1:32 PM. The tip of the ET tube lies 1 cm above the delonte. An NG tube extends into the distal aspect of the stomach or the duodenum, incompletely visualized on this exam. A right jugular central venous catheter extends to the level of the atriocaval junction. The heart size is unchanged. The pulmonary vascularity is normal. No pulmonary infiltrates are seen. No significant pleural fluid is evident. IMPRESSION: 1. Tube positions as described above. 2. No acute cardiopulmonary abnormality is detected.
[2016-07-27] MEDS: FUROSEMIDE 40 MG TABLET. PO SCH (09:00)
[2016-07-27] MEDS: METOPROLOL SUCC 24HR ER 25 MG TAB.ER.24H. PO SCH (09:00)
[2016-07-27] MEDS ORDERED: CHLORHEXIDINE 0.12% 15 ML MOUTHWASH. MM SCH (09:00)
[2016-07-27] MEDS: FLUTICASONE 50MCG/NASAL SPRAY 16GM BOTTLE. NS SCH (09:15)
--- NOTE | 2016-07-27 10:22 | PDOC ---
PULMONARY PROGRESS NOTES Subjective intubated, off sedation on 2 pressors remains in shock Vitals Vital Signs Date Time Temp Pulse Resp B/P (MAP) Pulse Ox O2 Delivery O2 Flow Rate FiO2 07/27/16 09:00 118 16 151/107 (122) 100 Ventilator 07/27/16 07:00 100.7 100.7 Comments ros as mentioned as above other sys otherwise neg HEENT: Other (nc at perrl, shallow oropharynx nose clear) Lungs: Other (decrease bs) Cardiovascular: S1 Abdomen: Soft, Non-tender Extremities: Other (trace edema) Skin: Warm Labs Laboratory Tests Test 07/26/16 09:00 07/26/16 12:05 07/26/16 14:15 07/26/16 15:43 O2 Saturation 99 % (92-99) Arterial Blood pH 7.38 (7.35-7.45) Arterial Blood pCO2 at Patient Temp 94 mmHg (35-46) Arterial Blood pO2 at Patient Temp 309 mmHg (65-108) Arterial Blood HCO3 55 mmol/L (21-28) Arterial Blood Base Excess 26 mmol/L (-3-3) FiO2 100.0 White Blood Count 14.8 x10^3/uL (4.0-11.0) Red Blood Count 2.88 x10^6/uL (3.50-5.40) Hemoglobin 9.2 g/dL (12.0-15.5) Hematocrit 31.3 % (36.0-47.0) Mean Corpuscular Volume 109 fL (79-100) Mean Corpuscular Hemoglobin 32 pg (25-35) Mean Corpuscular Hemoglobin Concent 30 g/dL (31-37) Red Cell Distribution Width 20.3 % (11.5-14.5) Platelet Count 342 x10^3/uL (140-400) Neutrophils (%) (Auto) 79 % (31-73) Lymphocytes (%) (Auto) 7 % (24-48) Monocytes (%) (Auto) 14 % (0-9) Eosinophils (%) (Auto) 0 % (0-3) Basophils (%) (Auto) 0 % (0-3) Neutrophils # (Auto) 11.6 x10^3uL (1.8-7.7) Lymphocytes # (Auto) 1.0 x10^3/uL (1.0-4.8) Monocytes # (Auto) 2.1 x10^3/uL (0.0-1.1) Eosinophils # (Auto) 0.0 x10^3/uL (0.0-0.7) Basophils # (Auto) 0.1 x10^3/uL (0.0-0.2) Urine Collection Type Unknown Urine Color Dk yellow Urine Clarity Clear Urine pH 5.5 Urine Specific [place] 1.020 Urine Protein 100 mg/dL (NEG-TRACE) Urine Glucose (UA) Negative mg/dL (NEG) Urine Ketones (Stick) Negative mg/dL (NEG) Urine Blood Negative (NEG) Urine Nitrite Negative (NEG) Urine Bilirubin Small (NEG) Urine Urobilinogen Dipstick 0.2 mg/dL (0.2 mg/dL) Urine Leukocyte Esterase Small (NEG) Urine RBC 0 /HPF (0-2) Urine WBC Occ /HPF (0-4) Urine Squamous Epithelial Cells Many /LPF Urine Renal Epithelial Cells Few /LPF Urine Bacteria Few /HPF (0-FEW) Urine Hyaline Casts Many /HPF Sodium Level 140 mmol/L (136-145) Potassium Level 3.8 mmol/L (3.5-5.1) Chloride Level 94 mmol/L (98-107) Carbon Dioxide Level 39 mmol/L (21-32) Anion Gap 7 (6-14) Blood Urea Nitrogen 29 mg/dL (7-20) Creatinine 1.9 mg/dL (0.6-1.0) Estimated GFR (Cockcroft-Gault) 26.9 BUN/Creatinine Ratio 15 (6-20) Glucose Level 32 mg/dL (70-99) Lactic Acid Level 7.6 mmol/L (0.4-2.0) Calcium Level 7.9 mg/dL (8.5-10.1) Total Bilirubin 0.9 mg/dL (0.2-1.0) Aspartate Amino Transf (AST/SGOT) 91340 U/L (15-37) Alanine Aminotransferase (ALT/SGPT) 3939 U/L (14-59) Alkaline Phosphatase 80 U/L (46-116) Total Protein 5.9 g/dL (6.4-8.2) Albumin 2.1 g/dL (3.4-5.0) Albumin/Globulin Ratio 0.6 (1.0-1.7) Procalcitonin 2.75 ng/mL (0.00-0.10) Glucose (Fingerstick) 67 mg/dL (70-99) Test 07/26/16 18:38 07/26/16 19:25 07/26/16 21:36 07/26/16 22:31 Sodium Level 137 mmol/L (136-145) Potassium Level 3.9 mmol/L (3.5-5.1) Chloride Level 93 mmol/L (98-107) Carbon Dioxide Level 34 mmol/L (21-32) Anion Gap 10 (6-14) Blood Urea Nitrogen 32 mg/dL (7-20) Creatinine 2.1 mg/dL (0.6-1.0) Estimated GFR (Cockcroft-Gault) 23.9 BUN/Creatinine Ratio 15 (6-20) Glucose Level 86 mg/dL (70-99) Lactic Acid Level 7.5 mmol/L (0.4-2.0) Calcium Level 7.5 mg/dL (8.5-10.1) Total Bilirubin 0.9 mg/dL (0.2-1.0) Aspartate Amino Transf (AST/SGOT) 92600 U/L (15-37) Alanine Aminotransferase (ALT/SGPT) 5013 U/L (14-59) Alkaline Phosphatase 81 U/L (46-116) Total Protein 5.2 g/dL (6.4-8.2) Albumin 2.1 g/dL (3.4-5.0) Albumin/Globulin Ratio 0.7 (1.0-1.7) Glucose (Fingerstick) 66 mg/dL (70-99) 59 mg/dL (70-99) 89 mg/dL (70-99) Test 07/26/16 23:40 07/27/16 00:34 07/27/16 02:40 07/27/16 05:40 Glucose (Fingerstick) 60 mg/dL (70-99) 87 mg/dL (70-99) 94 mg/dL (70-99) White Blood Count 19.7 x10^3/uL (4.0-11.0) Red Blood Count 2.84 x10^6/uL (3.50-5.40) Hemoglobin 9.1 g/dL (12.0-15.5) Hematocrit 29.1 % (36.0-47.0) Mean Corpuscular Volume 102 fL (79-100) Mean Corpuscular Hemoglobin 32 pg (25-35) Mean Corpuscular Hemoglobin Concent 31 g/dL (31-37) Red Cell Distribution Width 20.2 % (11.5-14.5) Platelet Count 429 x10^3/uL (140-400) Neutrophils (%) (Auto) 92 % (31-73) Lymphocytes (%) (Auto) 2 % (24-48) Monocytes (%) (Auto) 5 % (0-9) Eosinophils (%) (Auto) 0 % (0-3) Basophils (%) (Auto) 1 % (0-3) Neutrophils # (Auto) 18.1 x10^3uL (1.8-7.7) Lymphocytes # (Auto) 0.4 x10^3/uL (1.0-4.8) Monocytes # (Auto) 1.0 x10^3/uL (0.0-1.1) Eosinophils # (Auto) 0.1 x10^3/uL (0.0-0.7) Basophils # (Auto) 0.1 x10^3/uL (0.0-0.2) Segmented Neutrophils % 73 % (35-66) Band Neutrophils % 21 % (0-9) Lymphocytes % 2 % (24-48) Monocytes % 4 % (0-10) Nucleated Red Blood Cells 11 Platelet Estimate Increased (ADEQUATE) Anisocytosis Mod Sodium Level 132 mmol/L (136-145) Potassium Level 3.7 mmol/L (3.5-5.1) Chloride Level 91 mmol/L (98-107) Carbon Dioxide Level 31 mmol/L (21-32) Anion Gap 10 (6-14) Blood Urea Nitrogen 38 mg/dL (7-20) Creatinine 2.6 mg/dL (0.6-1.0) Estimated GFR (Cockcroft-Gault) 18.7 BUN/Creatinine Ratio 15 (6-20) Glucose Level 146 mg/dL (70-99) Lactic Acid Level 5.0 mmol/L (0.4-2.0) Calcium Level 7.2 mg/dL (8.5-10.1) Total Bilirubin 1.4 mg/dL (0.2-1.0) Aspartate Amino Transf (AST/SGOT) 17035 U/L (15-37) Alanine Aminotransferase (ALT/SGPT) 4893 U/L (14-59) Alkaline Phosphatase 106 U/L (46-116) Creatine Kinase 2911 U/L (26-192) Total Protein 5.6 g/dL (6.4-8.2) Albumin 2.0 g/dL (3.4-5.0) Albumin/Globulin Ratio 0.6 (1.0-1.7) Test 07/27/16 05:41 07/27/16 07:45 07/27/16 07:47 Glucose (Fingerstick) 144 mg/dL (70-99) 149 mg/dL (70-99) O2 Saturation 97 % (92-99) Arterial Blood pH 7.54 (7.35-7.45) Arterial Blood pCO2 at Patient Temp 39 mmHg (35-46) Arterial Blood pO2 at Patient Temp 101 mmHg (65-108) Arterial Blood HCO3 33 mmol/L (21-28) Arterial Blood Base Excess 9 mmol/L (-3-3) FiO2 35% Laboratory Tests Test 07/26/16 12:05 07/26/16 14:15 07/26/16 15:43 07/26/16 18:38 White Blood Count 14.8 x10^3/uL (4.0-11.0) Red Blood Count 2.88 x10^6/uL (3.50-5.40) Hemoglobin 9.2 g/dL (12.0-15.5) Hematocrit 31.3 % (36.0-47.0) Mean Corpuscular Volume 109 fL (79-100) Mean Corpuscular Hemoglobin 32 pg (25-35) Mean Corpuscular Hemoglobin Concent 30 g/dL (31-37) Red Cell Distribution Width 20.3 % (11.5-14.5) Platelet Count 342 x10^3/uL (140-400) Neutrophils (%) (Auto) 79 % (31-73) Lymphocytes (%) (Auto) 7 % (24-48) Monocytes (%) (Auto) 14 % (0-9) Eosinophils (%) (Auto) 0 % (0-3) Basophils (%) (Auto) 0 % (0-3) Neutrophils # (Auto) 11.6 x10^3uL (1.8-7.7) Lymphocytes # (Auto) 1.0 x10^3/uL (1.0-4.8) Monocytes # (Auto) 2.1 x10^3/uL (0.0-1.1) Eosinophils # (Auto) 0.0 x10^3/uL (0.0-0.7) Basophils # (Auto) 0.1 x10^3/uL (0.0-0.2) Urine Collection Type Unknown Urine Color Dk yellow Urine Clarity Clear Urine pH 5.5 Urine Specific [place] 1.020 Urine Protein 100 mg/dL (NEG-TRACE) Urine Glucose (UA) Negative mg/dL (NEG) Urine Ketones (Stick) Negative mg/dL (NEG) Urine Blood Negative (NEG) Urine Nitrite Negative (NEG) Urine Bilirubin Small (NEG) Urine Urobilinogen Dipstick 0.2 mg/dL (0.2 mg/dL) Urine Leukocyte Esterase Small (NEG) Urine RBC 0 /HPF (0-2) Urine WBC Occ /HPF (0-4) Urine Squamous Epithelial Cells Many /LPF Urine Renal Epithelial Cells Few /LPF Urine Bacteria Few /HPF (0-FEW) Urine Hyaline Casts Many /HPF Sodium Level 140 mmol/L (136-145) 137 mmol/L (136-145) Potassium Level 3.8 mmol/L (3.5-5.1) 3.9 mmol/L (3.5-5.1) Chloride Level 94 mmol/L (98-107) 93 mmol/L (98-107) Carbon Dioxide Level 39 mmol/L (21-32) 34 mmol/L (21-32) Anion Gap 7 (6-14) 10 (6-14) Blood Urea Nitrogen 29 mg/dL (7-20) 32 mg/dL (7-20) Creatinine 1.9 mg/dL (0.6-1.0) 2.1 mg/dL (0.6-1.0) Estimated GFR (Cockcroft-Gault) 26.9 23.9 BUN/Creatinine Ratio 15 (6-20) 15 (6-20) Glucose Level 32 mg/dL (70-99) 86 mg/dL (70-99) Lactic Acid Level 7.6 mmol/L (0.4-2.0) 7.5 mmol/L (0.4-2.0) Calcium Level 7.9 mg/dL (8.5-10.1) 7.5 mg/dL (8.5-10.1) Total Bilirubin 0.9 mg/dL (0.2-1.0) 0.9 mg/dL (0.2-1.0) Aspartate Amino Transf (AST/SGOT) 36463 U/L (15-37) 50255 U/L (15-37) Alanine Aminotransferase (ALT/SGPT) 3939 U/L (14-59) 5013 U/L (14-59) Alkaline Phosphatase 80 U/L (46-116) 81 U/L (46-116) Total Protein 5.9 g/dL (6.4-8.2) 5.2 g/dL (6.4-8.2) Albumin 2.1 g/dL (3.4-5.0) 2.1 g/dL (3.4-5.0) Albumin/Globulin Ratio 0.6 (1.0-1.7) 0.7 (1.0-1.7) Procalcitonin 2.75 ng/mL (0.00-0.10) Glucose (Fingerstick) 67 mg/dL (70-99) Test 07/26/16 19:25 07/26/16 21:36 07/26/16 22:31 07/26/16 23:40 Glucose (Fingerstick) 66 mg/dL (70-99) 59 mg/dL (70-99) 89 mg/dL (70-99) 60 mg/dL (70-99) Test 07/27/16 00:34 07/27/16 02:40 07/27/16 05:40 07/27/16 05:41 Glucose (Fingerstick) 87 mg/dL (70-99) 94 mg/dL (70-99) 144 mg/dL (70-99) White Blood Count 19.7 x10^3/uL (4.0-11.0) Red Blood Count 2.84 x10^6/uL (3.50-5.40) Hemoglobin 9.1 g/dL (12.0-15.5) Hematocrit 29.1 % (36.0-47.0) Mean Corpuscular Volume 102 fL (79-100) Mean Corpuscular Hemoglobin 32 pg (25-35) Mean Corpuscular Hemoglobin Concent 31 g/dL (31-37) Red Cell Distribution Width 20.2 % (11.5-14.5) Platelet Count 429 x10^3/uL (140-400) Neutrophils (%) (Auto) 92 % (31-73) Lymphocytes (%) (Auto) 2 % (24-48) Monocytes (%) (Auto) 5 % (0-9) Eosinophils (%) (Auto) 0 % (0-3) Basophils (%) (Auto) 1 % (0-3) Neutrophils # (Auto) 18.1 x10^3uL (1.8-7.7) Lymphocytes # (Auto) 0.4 x10^3/uL (1.0-4.8) Monocytes # (Auto) 1.0 x10^3/uL (0.0-1.1) Eosinophils # (Auto) 0.1 x10^3/uL (0.0-0.7) Basophils # (Auto) 0.1 x10^3/uL (0.0-0.2) Segmented Neutrophils % 73 % (35-66) Band Neutrophils % 21 % (0-9) Lymphocytes % 2 % (24-48) Monocytes % 4 % (0-10) Nucleated Red Blood Cells 11 Platelet Estimate Increased (ADEQUATE) Anisocytosis Mod Sodium Level 132 mmol/L (136-145) Potassium Level 3.7 mmol/L (3.5-5.1) Chloride Level 91 mmol/L (98-107) Carbon Dioxide Level 31 mmol/L (21-32) Anion Gap 10 (6-14) Blood Urea Nitrogen 38 mg/dL (7-20) Creatinine 2.6 mg/dL (0.6-1.0) Estimated GFR (Cockcroft-Gault) 18.7 BUN/Creatinine Ratio 15 (6-20) Glucose Level 146 mg/dL (70-99) Lactic Acid Level 5.0 mmol/L (0.4-2.0) Calcium Level 7.2 mg/dL (8.5-10.1) Total Bilirubin 1.4 mg/dL (0.2-1.0) Aspartate Amino Transf (AST/SGOT) 61799 U/L (15-37) Alanine Aminotransferase (ALT/SGPT) 4893 U/L (14-59) Alkaline Phosphatase 106 U/L (46-116) Creatine Kinase 2911 U/L (26-192) Total Protein 5.6 g/dL (6.4-8.2) Albumin 2.0 g/dL (3.4-5.0) Albumin/Globulin Ratio 0.6 (1.0-1.7) Test 07/27/16 07:45 07/27/16 07:47 O2 Saturation 97 % (92-99) Arterial Blood pH 7.54 (7.35-7.45) Arterial Blood pCO2 at Patient Temp 39 mmHg (35-46) Arterial Blood pO2 at Patient Temp 101 mmHg (65-108) Arterial Blood HCO3 33 mmol/L (21-28) Arterial Blood Base Excess 9 mmol/L (-3-3) FiO2 35% Glucose (Fingerstick) 149 mg/dL (70-99) Medications Active Scripts Medications Dose Route/Sig Max Daily Dose Days Date Category Lipitor (Atorvastatin Calcium) 20 Mg Tablet 20 Mg PO HS 07/18/16 Reported Zyrtec (Cetirizine Hcl) 10 Mg Tablet 1 Tab PO DAILY 07/18/16 Reported Fluticasone Propionate Nasal [place] (Fluticasone Propionate) 16 Gm [place].susp 2 [place] NS DAILY 07/18/16 Reported Lasix (Furosemide) 40 Mg Tablet 1 Tab PO DAILY 07/18/16 Reported Folic Acid 1 Mg Tablet 2 Tab PO DAILY 07/18/16 Reported Ventolin Hfa Inhaler (Albuterol Sulfate) 18 Gm Hfa.aer.ad 2 Puff INH QID 07/18/16 Reported Leflunomide 20 Mg Tablet 20 Mg PO DAILY 07/18/16 Reported Metoprolol Succinate ( Xl ) (Metoprolol Succinate) 25 Mg Tab.er.24h 0.5 Tab PO DAILY 07/18/16 Reported Levothyroxine Sodium 112 Mcg Tablet 112 Mcg PO DAILY 04/19/13 Reported Diflunisal 500 Mg Tablet 500 Mg PO BID 04/19/13 Reported Sulfasalazine 500 Mg Tablet 1,000 Mg PO BID 04/19/13 Reported Prednisone 1 Mg Tablet 1 Mg PO QID 04/19/13 Reported Comments cxr reviewed 07/27 no infiltrates Impression . 1. Acute on chronic hypoxic and hypercapnic respiratory failure POA, now intubated for toxic encephalopathy and shock. 2. Shock, septic/ hypovolemic/? adrenal suppression. 2. Underlying severe chronic obstructive pulmonary disease with chronic respiratory failure, now with acute on chronic respiratory failure. 3. History of rheumatoid arthritis, on chronic steroids and methotrexate. 4. shock liver 5. Chronic benzodiazepine and narcotic use. She uses oxycodone and diazepam regularly, which may have contributed to her encephalopathy. 6. Lactic acidosis due to septic shock 7. Fever, no infiltrates in lung 8. TRAY due to shock Plan . 1. AC mode/ Correst resp alkalosis 2. Fluid challenge, pressors 3. empiric BS antibiotic. 4. Stress dose steroids 5. wean pressors if possible 6. Continue methotrexate for rheumatoid arthritis. 7. DVT prophylaxis.start enteral nutrition 8. supportive care 9. bronchodilator, 10. Monitor urine output / LFT 11. d/w RN. continue aggressive care to see improvement DNR for now ELO SANCHEZ MD July 27, 2016 10:22
--- NOTE | 2016-07-27 10:26 | PDOC ---
PROGRESS NOTES Chief Complaint Chief Complaint Acute on chronic hypoxic, hypercapnic respiratory failure 1. Acute on chronic hypoxic and hypercapnic respiratory failure POA,: on Mechanical ventilation, 2. Shock, Possible multifactorial: septic/ hypovolemic/? adrenal suppression: On 2 pressors, IV NS Bolus, on DFDW. Echo at admission normal LVEF, 2. Hypoglycemia: on D5NS 3. History of rheumatoid arthritis, on chronic steroids and methotrexate.: Immunosuppressive state. 4. Shock liver: likely duet # 2, consult GI, ? hematemesis. start on iv Protonix. 5. Encephalopathy. POA, Suspected due to bezos and narcotics. 6. Lactic acidosis due to septic shock 7. Fever: On iv abx per ID, pl see orders, blood cx no growth, 8. TRAY due to shock 9. Nutrition: tube feeding. DNR Prognosis guarded/poor. cc time 31 min. History of Present Illness History of Present Illness seen in ICU Intubated d/w RN No family at bedside. Vitals Vitals Vital Signs Date Time Temp Pulse Resp B/P (MAP) Pulse Ox O2 Delivery O2 Flow Rate FiO2 07/27/16 09:00 118 16 151/107 (122) 100 Ventilator 07/27/16 07:00 100.7 100.7 Physical Exam General: Other (sedated and intubated. ) Heart: Regular rate, Normal S1, Normal S2 Lungs: Clear, Other (decrease bs) Abdomen: Normal bowel sounds, No tenderness Extremities: No clubbing, No edema Skin: No rashes Labs LABS Laboratory Tests Test 07/26/16 12:05 07/26/16 14:15 07/26/16 15:43 07/26/16 18:38 White Blood Count 14.8 x10^3/uL (4.0-11.0) Red Blood Count 2.88 x10^6/uL (3.50-5.40) Hemoglobin 9.2 g/dL (12.0-15.5) Hematocrit 31.3 % (36.0-47.0) Mean Corpuscular Volume 109 fL (79-100) Mean Corpuscular Hemoglobin 32 pg (25-35) Mean Corpuscular Hemoglobin Concent 30 g/dL (31-37) Red Cell Distribution Width 20.3 % (11.5-14.5) Platelet Count 342 x10^3/uL (140-400) Neutrophils (%) (Auto) 79 % (31-73) Lymphocytes (%) (Auto) 7 % (24-48) Monocytes (%) (Auto) 14 % (0-9) Eosinophils (%) (Auto) 0 % (0-3) Basophils (%) (Auto) 0 % (0-3) Neutrophils # (Auto) 11.6 x10^3uL (1.8-7.7) Lymphocytes # (Auto) 1.0 x10^3/uL (1.0-4.8) Monocytes # (Auto) 2.1 x10^3/uL (0.0-1.1) Eosinophils # (Auto) 0.0 x10^3/uL (0.0-0.7) Basophils # (Auto) 0.1 x10^3/uL (0.0-0.2) Urine Collection Type Unknown Urine Color Dk yellow Urine Clarity Clear Urine pH 5.5 Urine Specific [place] 1.020 Urine Protein 100 mg/dL (NEG-TRACE) Urine Glucose (UA) Negative mg/dL (NEG) Urine Ketones (Stick) Negative mg/dL (NEG) Urine Blood Negative (NEG) Urine Nitrite Negative (NEG) Urine Bilirubin Small (NEG) Urine Urobilinogen Dipstick 0.2 mg/dL (0.2 mg/dL) Urine Leukocyte Esterase Small (NEG) Urine RBC 0 /HPF (0-2) Urine WBC Occ /HPF (0-4) Urine Squamous Epithelial Cells Many /LPF Urine Renal Epithelial Cells Few /LPF Urine Bacteria Few /HPF (0-FEW) Urine Hyaline Casts Many /HPF Sodium Level 140 mmol/L (136-145) 137 mmol/L (136-145) Potassium Level 3.8 mmol/L (3.5-5.1) 3.9 mmol/L (3.5-5.1) Chloride Level 94 mmol/L (98-107) 93 mmol/L (98-107) Carbon Dioxide Level 39 mmol/L (21-32) 34 mmol/L (21-32) Anion Gap 7 (6-14) 10 (6-14) Blood Urea Nitrogen 29 mg/dL (7-20) 32 mg/dL (7-20) Creatinine 1.9 mg/dL (0.6-1.0) 2.1 mg/dL (0.6-1.0) Estimated GFR (Cockcroft-Gault) 26.9 23.9 BUN/Creatinine Ratio 15 (6-20) 15 (6-20) Glucose Level 32 mg/dL (70-99) 86 mg/dL (70-99) Lactic Acid Level 7.6 mmol/L (0.4-2.0) 7.5 mmol/L (0.4-2.0) Calcium Level 7.9 mg/dL (8.5-10.1) 7.5 mg/dL (8.5-10.1) Total Bilirubin 0.9 mg/dL (0.2-1.0) 0.9 mg/dL (0.2-1.0) Aspartate Amino Transf (AST/SGOT) 86081 U/L (15-37) 83713 U/L (15-37) Alanine Aminotransferase (ALT/SGPT) 3939 U/L (14-59) 5013 U/L (14-59) Alkaline Phosphatase 80 U/L (46-116) 81 U/L (46-116) Total Protein 5.9 g/dL (6.4-8.2) 5.2 g/dL (6.4-8.2) Albumin 2.1 g/dL (3.4-5.0) 2.1 g/dL (3.4-5.0) Albumin/Globulin Ratio 0.6 (1.0-1.7) 0.7 (1.0-1.7) Procalcitonin 2.75 ng/mL (0.00-0.10) Glucose (Fingerstick) 67 mg/dL (70-99) Test 07/26/16 19:25 07/26/16 21:36 07/26/16 22:31 07/26/16 23:40 Glucose (Fingerstick) 66 mg/dL (70-99) 59 mg/dL (70-99) 89 mg/dL (70-99) 60 mg/dL (70-99) Test 07/27/16 00:34 07/27/16 02:40 07/27/16 05:40 07/27/16 05:41 Glucose (Fingerstick) 87 mg/dL (70-99) 94 mg/dL (70-99) 144 mg/dL (70-99) White Blood Count 19.7 x10^3/uL (4.0-11.0) Red Blood Count 2.84 x10^6/uL (3.50-5.40) Hemoglobin 9.1 g/dL (12.0-15.5) Hematocrit 29.1 % (36.0-47.0) Mean Corpuscular Volume 102 fL (79-100) Mean Corpuscular Hemoglobin 32 pg (25-35) Mean Corpuscular Hemoglobin Concent 31 g/dL (31-37) Red Cell Distribution Width 20.2 % (11.5-14.5) Platelet Count 429 x10^3/uL (140-400) Neutrophils (%) (Auto) 92 % (31-73) Lymphocytes (%) (Auto) 2 % (24-48) Monocytes (%) (Auto) 5 % (0-9) Eosinophils (%) (Auto) 0 % (0-3) Basophils (%) (Auto) 1 % (0-3) Neutrophils # (Auto) 18.1 x10^3uL (1.8-7.7) Lymphocytes # (Auto) 0.4 x10^3/uL (1.0-4.8) Monocytes # (Auto) 1.0 x10^3/uL (0.0-1.1) Eosinophils # (Auto) 0.1 x10^3/uL (0.0-0.7) Basophils # (Auto) 0.1 x10^3/uL (0.0-0.2) Segmented Neutrophils % 73 % (35-66) Band Neutrophils % 21 % (0-9) Lymphocytes % 2 % (24-48) Monocytes % 4 % (0-10) Nucleated Red Blood Cells 11 Platelet Estimate Increased (ADEQUATE) Anisocytosis Mod Sodium Level 132 mmol/L (136-145) Potassium Level 3.7 mmol/L (3.5-5.1) Chloride Level 91 mmol/L (98-107) Carbon Dioxide Level 31 mmol/L (21-32) Anion Gap 10 (6-14) Blood Urea Nitrogen 38 mg/dL (7-20) Creatinine 2.6 mg/dL (0.6-1.0) Estimated GFR (Cockcroft-Gault) 18.7 BUN/Creatinine Ratio 15 (6-20) Glucose Level 146 mg/dL (70-99) Lactic Acid Level 5.0 mmol/L (0.4-2.0) Calcium Level 7.2 mg/dL (8.5-10.1) Total Bilirubin 1.4 mg/dL (0.2-1.0) Aspartate Amino Transf (AST/SGOT) 47062 U/L (15-37) Alanine Aminotransferase (ALT/SGPT) 4893 U/L (14-59) Alkaline Phosphatase 106 U/L (46-116) Creatine Kinase 2911 U/L (26-192) Total Protein 5.6 g/dL (6.4-8.2) Albumin 2.0 g/dL (3.4-5.0) Albumin/Globulin Ratio 0.6 (1.0-1.7) Test 07/27/16 07:45 07/27/16 07:47 O2 Saturation 97 % (92-99) Arterial Blood pH 7.54 (7.35-7.45) Arterial Blood pCO2 at Patient Temp 39 mmHg (35-46) Arterial Blood pO2 at Patient Temp 101 mmHg (65-108) Arterial Blood HCO3 33 mmol/L (21-28) Arterial Blood Base Excess 9 mmol/L (-3-3) FiO2 35% Glucose (Fingerstick) 149 mg/dL (70-99) Assessment and Plan Assessmemt and Plan Problems Medical Problems: (1) Acidosis Status: Acute (2) COPD (chronic obstructive pulmonary disease) Status: Acute Problems: Comment Review of Relevant I have reviewed the following items declan (where applicable) has been applied. Labs Laboratory Tests Test 07/26/16 09:00 07/26/16 12:05 07/26/16 14:15 07/26/16 15:43 O2 Saturation 99 % (92-99) Arterial Blood pH 7.38 (7.35-7.45) Arterial Blood pCO2 at Patient Temp 94 mmHg (35-46) Arterial Blood pO2 at Patient Temp 309 mmHg (65-108) Arterial Blood HCO3 55 mmol/L (21-28) Arterial Blood Base Excess 26 mmol/L (-3-3) FiO2 100.0 White Blood Count 14.8 x10^3/uL (4.0-11.0) Red Blood Count 2.88 x10^6/uL (3.50-5.40) Hemoglobin 9.2 g/dL (12.0-15.5) Hematocrit 31.3 % (36.0-47.0) Mean Corpuscular Volume 109 fL (79-100) Mean Corpuscular Hemoglobin 32 pg (25-35) Mean Corpuscular Hemoglobin Concent 30 g/dL (31-37) Red Cell Distribution Width 20.3 % (11.5-14.5) Platelet Count 342 x10^3/uL (140-400) Neutrophils (%) (Auto) 79 % (31-73) Lymphocytes (%) (Auto) 7 % (24-48) Monocytes (%) (Auto) 14 % (0-9) Eosinophils (%) (Auto) 0 % (0-3) Basophils (%) (Auto) 0 % (0-3) Neutrophils # (Auto) 11.6 x10^3uL (1.8-7.7) Lymphocytes # (Auto) 1.0 x10^3/uL (1.0-4.8) Monocytes # (Auto) 2.1 x10^3/uL (0.0-1.1) Eosinophils # (Auto) 0.0 x10^3/uL (0.0-0.7) Basophils # (Auto) 0.1 x10^3/uL (0.0-0.2) Urine Collection Type Unknown Urine Color Dk yellow Urine Clarity Clear Urine pH 5.5 Urine Specific [place] 1.020 Urine Protein 100 mg/dL (NEG-TRACE) Urine Glucose (UA) Negative mg/dL (NEG) Urine Ketones (Stick) Negative mg/dL (NEG) Urine Blood Negative (NEG) Urine Nitrite Negative (NEG) Urine Bilirubin Small (NEG) Urine Urobilinogen Dipstick 0.2 mg/dL (0.2 mg/dL) Urine Leukocyte Esterase Small (NEG) Urine RBC 0 /HPF (0-2) Urine WBC Occ /HPF (0-4) Urine Squamous Epithelial Cells Many /LPF Urine Renal Epithelial Cells Few /LPF Urine Bacteria Few /HPF (0-FEW) Urine Hyaline Casts Many /HPF Sodium Level 140 mmol/L (136-145) Potassium Level 3.8 mmol/L (3.5-5.1) Chloride Level 94 mmol/L (98-107) Carbon Dioxide Level 39 mmol/L (21-32) Anion Gap 7 (6-14) Blood Urea Nitrogen 29 mg/dL (7-20) Creatinine 1.9 mg/dL (0.6-1.0) Estimated GFR (Cockcroft-Gault) 26.9 BUN/Creatinine Ratio 15 (6-20) Glucose Level 32 mg/dL (70-99) Lactic Acid Level 7.6 mmol/L (0.4-2.0) Calcium Level 7.9 mg/dL (8.5-10.1) Total Bilirubin 0.9 mg/dL (0.2-1.0) Aspartate Amino Transf (AST/SGOT) 85382 U/L (15-37) Alanine Aminotransferase (ALT/SGPT) 3939 U/L (14-59) Alkaline Phosphatase 80 U/L (46-116) Total Protein 5.9 g/dL (6.4-8.2) Albumin 2.1 g/dL (3.4-5.0) Albumin/Globulin Ratio 0.6 (1.0-1.7) Procalcitonin 2.75 ng/mL (0.00-0.10) Glucose (Fingerstick) 67 mg/dL (70-99) Test 07/26/16 18:38 07/26/16 19:25 07/26/16 21:36 07/26/16 22:31 Sodium Level 137 mmol/L (136-145) Potassium Level 3.9 mmol/L (3.5-5.1) Chloride Level 93 mmol/L (98-107) Carbon Dioxide Level 34 mmol/L (21-32) Anion Gap 10 (6-14) Blood Urea Nitrogen 32 mg/dL (7-20) Creatinine 2.1 mg/dL (0.6-1.0) Estimated GFR (Cockcroft-Gault) 23.9 BUN/Creatinine Ratio 15 (6-20) Glucose Level 86 mg/dL (70-99) Lactic Acid Level 7.5 mmol/L (0.4-2.0) Calcium Level 7.5 mg/dL (8.5-10.1) Total Bilirubin 0.9 mg/dL (0.2-1.0) Aspartate Amino Transf (AST/SGOT) 40577 U/L (15-37) Alanine Aminotransferase (ALT/SGPT) 5013 U/L (14-59) Alkaline Phosphatase 81 U/L (46-116) Total Protein 5.2 g/dL (6.4-8.2) Albumin 2.1 g/dL (3.4-5.0) Albumin/Globulin Ratio 0.7 (1.0-1.7) Glucose (Fingerstick) 66 mg/dL (70-99) 59 mg/dL (70-99) 89 mg/dL (70-99) Test 07/26/16 23:40 07/27/16 00:34 07/27/16 02:40 07/27/16 05:40 Glucose (Fingerstick) 60 mg/dL (70-99) 87 mg/dL (70-99) 94 mg/dL (70-99) White Blood Count 19.7 x10^3/uL (4.0-11.0) Red Blood Count 2.84 x10^6/uL (3.50-5.40) Hemoglobin 9.1 g/dL (12.0-15.5) Hematocrit 29.1 % (36.0-47.0) Mean Corpuscular Volume 102 fL (79-100) Mean Corpuscular Hemoglobin 32 pg (25-35) Mean Corpuscular Hemoglobin Concent 31 g/dL (31-37) Red Cell Distribution Width 20.2 % (11.5-14.5) Platelet Count 429 x10^3/uL (140-400) Neutrophils (%) (Auto) 92 % (31-73) Lymphocytes (%) (Auto) 2 % (24-48) Monocytes (%) (Auto) 5 % (0-9) Eosinophils (%) (Auto) 0 % (0-3) Basophils (%) (Auto) 1 % (0-3) Neutrophils # (Auto) 18.1 x10^3uL (1.8-7.7) Lymphocytes # (Auto) 0.4 x10^3/uL (1.0-4.8) Monocytes # (Auto) 1.0 x10^3/uL (0.0-1.1) Eosinophils # (Auto) 0.1 x10^3/uL (0.0-0.7) Basophils # (Auto) 0.1 x10^3/uL (0.0-0.2) Segmented Neutrophils % 73 % (35-66) Band Neutrophils % 21 % (0-9) Lymphocytes % 2 % (24-48) Monocytes % 4 % (0-10) Nucleated Red Blood Cells 11 Platelet Estimate Increased (ADEQUATE) Anisocytosis Mod Sodium Level 132 mmol/L (136-145) Potassium Level 3.7 mmol/L (3.5-5.1) Chloride Level 91 mmol/L (98-107) Carbon Dioxide Level 31 mmol/L (21-32) Anion Gap 10 (6-14) Blood Urea Nitrogen 38 mg/dL (7-20) Creatinine 2.6 mg/dL (0.6-1.0) Estimated GFR (Cockcroft-Gault) 18.7 BUN/Creatinine Ratio 15 (6-20) Glucose Level 146 mg/dL (70-99) Lactic Acid Level 5.0 mmol/L (0.4-2.0) Calcium Level 7.2 mg/dL (8.5-10.1) Total Bilirubin 1.4 mg/dL (0.2-1.0) Aspartate Amino Transf (AST/SGOT) 57721 U/L (15-37) Alanine Aminotransferase (ALT/SGPT) 4893 U/L (14-59) Alkaline Phosphatase 106 U/L (46-116) Creatine Kinase 2911 U/L (26-192) Total Protein 5.6 g/dL (6.4-8.2) Albumin 2.0 g/dL (3.4-5.0) Albumin/Globulin Ratio 0.6 (1.0-1.7) Test 07/27/16 05:41 07/27/16 07:45 07/27/16 07:47 Glucose (Fingerstick) 144 mg/dL (70-99) 149 mg/dL (70-99) O2 Saturation 97 % (92-99) Arterial Blood pH 7.54 (7.35-7.45) Arterial Blood pCO2 at Patient Temp 39 mmHg (35-46) Arterial Blood pO2 at Patient Temp 101 mmHg (65-108) Arterial Blood HCO3 33 mmol/L (21-28) Arterial Blood Base Excess 9 mmol/L (-3-3) FiO2 35% Laboratory Tests Test 07/26/16 12:05 07/26/16 14:15 07/26/16 15:43 07/26/16 18:38 White Blood Count 14.8 x10^3/uL (4.0-11.0) Red Blood Count 2.88 x10^6/uL (3.50-5.40) Hemoglobin 9.2 g/dL (12.0-15.5) Hematocrit 31.3 % (36.0-47.0) Mean Corpuscular Volume 109 fL (79-100) Mean Corpuscular Hemoglobin 32 pg (25-35) Mean Corpuscular Hemoglobin Concent 30 g/dL (31-37) Red Cell Distribution Width 20.3 % (11.5-14.5) Platelet Count 342 x10^3/uL (140-400) Neutrophils (%) (Auto) 79 % (31-73) Lymphocytes (%) (Auto) 7 % (24-48) Monocytes (%) (Auto) 14 % (0-9) Eosinophils (%) (Auto) 0 % (0-3) Basophils (%) (Auto) 0 % (0-3) Neutrophils # (Auto) 11.6 x10^3uL (1.8-7.7) Lymphocytes # (Auto) 1.0 x10^3/uL (1.0-4.8) Monocytes # (Auto) 2.1 x10^3/uL (0.0-1.1) Eosinophils # (Auto) 0.0 x10^3/uL (0.0-0.7) Basophils # (Auto) 0.1 x10^3/uL (0.0-0.2) Urine Collection Type Unknown Urine Color Dk yellow Urine Clarity Clear Urine pH 5.5 Urine Specific [place] 1.020 Urine Protein 100 mg/dL (NEG-TRACE) Urine Glucose (UA) Negative mg/dL (NEG) Urine Ketones (Stick) Negative mg/dL (NEG) Urine Blood Negative (NEG) Urine Nitrite Negative (NEG) Urine Bilirubin Small (NEG) Urine Urobilinogen Dipstick 0.2 mg/dL (0.2 mg/dL) Urine Leukocyte Esterase Small (NEG) Urine RBC 0 /HPF (0-2) Urine WBC Occ /HPF (0-4) Urine Squamous Epithelial Cells Many /LPF Urine Renal Epithelial Cells Few /LPF Urine Bacteria Few /HPF (0-FEW) Urine Hyaline Casts Many /HPF Sodium Level 140 mmol/L (136-145) 137 mmol/L (136-145) Potassium Level 3.8 mmol/L (3.5-5.1) 3.9 mmol/L (3.5-5.1) Chloride Level 94 mmol/L (98-107) 93 mmol/L (98-107) Carbon Dioxide Level 39 mmol/L (21-32) 34 mmol/L (21-32) Anion Gap 7 (6-14) 10 (6-14) Blood Urea Nitrogen 29 mg/dL (7-20) 32 mg/dL (7-20) Creatinine 1.9 mg/dL (0.6-1.0) 2.1 mg/dL (0.6-1.0) Estimated GFR (Cockcroft-Gault) 26.9 23.9 BUN/Creatinine Ratio 15 (6-20) 15 (6-20) Glucose Level 32 mg/dL (70-99) 86 mg/dL (70-99) Lactic Acid Level 7.6 mmol/L (0.4-2.0) 7.5 mmol/L (0.4-2.0) Calcium Level 7.9 mg/dL (8.5-10.1) 7.5 mg/dL (8.5-10.1) Total Bilirubin 0.9 mg/dL (0.2-1.0) 0.9 mg/dL (0.2-1.0) Aspartate Amino Transf (AST/SGOT) 91705 U/L (15-37) 63275 U/L (15-37) Alanine Aminotransferase (ALT/SGPT) 3939 U/L (14-59) 5013 U/L (14-59) Alkaline Phosphatase 80 U/L (46-116) 81 U/L (46-116) Total Protein 5.9 g/dL (6.4-8.2) 5.2 g/dL (6.4-8.2) Albumin 2.1 g/dL (3.4-5.0) 2.1 g/dL (3.4-5.0) Albumin/Globulin Ratio 0.6 (1.0-1.7) 0.7 (1.0-1.7) Procalcitonin 2.75 ng/mL (0.00-0.10) Glucose (Fingerstick) 67 mg/dL (70-99) Test 07/26/16 19:25 07/26/16 21:36 07/26/16 22:31 07/26/16 23:40 Glucose (Fingerstick) 66 mg/dL (70-99) 59 mg/dL (70-99) 89 mg/dL (70-99) 60 mg/dL (70-99) Test 07/27/16 00:34 07/27/16 02:40 07/27/16 05:40 07/27/16 05:41 Glucose (Fingerstick) 87 mg/dL (70-99) 94 mg/dL (70-99) 144 mg/dL (70-99) White Blood Count 19.7 x10^3/uL (4.0-11.0) Red Blood Count 2.84 x10^6/uL (3.50-5.40) Hemoglobin 9.1 g/dL (12.0-15.5) Hematocrit 29.1 % (36.0-47.0) Mean Corpuscular Volume 102 fL (79-100) Mean Corpuscular Hemoglobin 32 pg (25-35) Mean Corpuscular Hemoglobin Concent 31 g/dL (31-37) Red Cell Distribution Width 20.2 % (11.5-14.5) Platelet Count 429 x10^3/uL (140-400) Neutrophils (%) (Auto) 92 % (31-73) Lymphocytes (%) (Auto) 2 % (24-48) Monocytes (%) (Auto) 5 % (0-9) Eosinophils (%) (Auto) 0 % (0-3) Basophils (%) (Auto) 1 % (0-3) Neutrophils # (Auto) 18.1 x10^3uL (1.8-7.7) Lymphocytes # (Auto) 0.4 x10^3/uL (1.0-4.8) Monocytes # (Auto) 1.0 x10^3/uL (0.0-1.1) Eosinophils # (Auto) 0.1 x10^3/uL (0.0-0.7) Basophils # (Auto) 0.1 x10^3/uL (0.0-0.2) Segmented Neutrophils % 73 % (35-66) Band Neutrophils % 21 % (0-9) Lymphocytes % 2 % (24-48) Monocytes % 4 % (0-10) Nucleated Red Blood Cells 11 Platelet Estimate Increased (ADEQUATE) Anisocytosis Mod Sodium Level 132 mmol/L (136-145) Potassium Level 3.7 mmol/L (3.5-5.1) Chloride Level 91 mmol/L (98-107) Carbon Dioxide Level 31 mmol/L (21-32) Anion Gap 10 (6-14) Blood Urea Nitrogen 38 mg/dL (7-20) Creatinine 2.6 mg/dL (0.6-1.0) Estimated GFR (Cockcroft-Gault) 18.7 BUN/Creatinine Ratio 15 (6-20) Glucose Level 146 mg/dL (70-99) Lactic Acid Level 5.0 mmol/L (0.4-2.0) Calcium Level 7.2 mg/dL (8.5-10.1) Total Bilirubin 1.4 mg/dL (0.2-1.0) Aspartate Amino Transf (AST/SGOT) 65400 U/L (15-37) Alanine Aminotransferase (ALT/SGPT) 4893 U/L (14-59) Alkaline Phosphatase 106 U/L (46-116) Creatine Kinase 2911 U/L (26-192) Total Protein 5.6 g/dL (6.4-8.2) Albumin 2.0 g/dL (3.4-5.0) Albumin/Globulin Ratio 0.6 (1.0-1.7) Test 07/27/16 07:45 07/27/16 07:47 O2 Saturation 97 % (92-99) Arterial Blood pH 7.54 (7.35-7.45) Arterial Blood pCO2 at Patient Temp 39 mmHg (35-46) Arterial Blood pO2 at Patient Temp 101 mmHg (65-108) Arterial Blood HCO3 33 mmol/L (21-28) Arterial Blood Base Excess 9 mmol/L (-3-3) FiO2 35% Glucose (Fingerstick) 149 mg/dL (70-99) Microbiology 07/18/16 Blood Culture - Final, Complete NO GROWTH AFTER 5 DAYS Medications Current Medications Albuterol/ Ipratropium (Duoneb) 3 ml 1X ONCE NEB Last administered on t 11:35; Start 07/18/16 at 11:00; Stop 07/18/16 at 11:01; Status DC Albuterol Sulfate (Ventolin Neb Soln) 2.5 mg 1X ONCE NEB ; Start 07/18/16 at 11: 00; Stop 07/18/16 at 11:01; Status DC Methylprednisolone Sodium Succinate (Solu-Medrol 125mg Vial) 125 mg 1X ONCE IV Last administered on 07/18/16 10:46; Start 07/18/16 at 11:00; Stop 07/18/16 at 11:01; Status DC Sodium Chloride 1,000 ml @ 1,000 mls/hr Q1H IV Last administered on 07/18/16 10:49; Start 07/18/16 at 11:00; Stop 07/18/16 at 11:59; Status DC Sodium Chloride (Normal Saline Flush) 10 ml QSHIFT PRN IV AFTER MEDS AND BLOOD DRAWS Last administered on 07/18/16 10:48; Start 07/18/16 at 10:45 Levofloxacin/ Dextrose 150 ml @ 100 mls/hr 1X ONCE IV Last administered on 12:01; Start 07/18/16 at 11:45; Stop 07/18/16 at 13:14; Status DC Potassium Chloride 100 ml @ 100 mls/hr Q1H IV Last administered on 07/18/16 13 :30; Start 07/18/16 at 12:30; Stop 07/18/16 at 14:29; Status DC Albuterol/ Ipratropium (Duoneb) 3 ml RTQID NEB Last administered on 07/27/16 07:36; Start 07/18/16 at 16:00 Enoxaparin Sodium (Lovenox 40mg Syringe) 40 mg Q24H SQ Last administered on 14:34; Start 07/18/16 at 14:00; Stop 07/27/16 at 07:27; Status DC Levofloxacin/ Dextrose 100 ml @ 100 mls/hr Q24H IV Last administered on 08:42; Start 07/19/16 at 09:00; Stop 07/25/16 at 12:56; Status DC Potassium Chloride 100 ml @ 100 mls/hr Q1H IV Last administered on 07/18/16 15 :50; Start 07/18/16 at 16:00; Stop 07/18/16 at 17:59; Status DC Acetaminophen (Tylenol) 325 mg PRN Q6HRS PRN PO MILD PAIN / TEMP Last administered on 07/24/16 18:27; Start 07/18/16 at 15:30 Hydralazine HCl (Apresoline) 10 mg PRN Q4HRS PRN IVP ELEVATED BP, SEE COMMENTS ; Start 07/18/16 at 15:30 Albuterol Sulfate (Ventolin Neb Soln) 2.5 mg PRN Q4HRS PRN NEB SHORTNESS OF BREATH Last administered on 07/24/16 03:46; Start 07/18/16 at 15:30 Oxycodone/ Acetaminophen (Percocet 5/325) 1 tab 1X ONCE PO Last administered on 07/18/16 21:33; Start 07/18/16 at 21:00; Stop 07/18/16 at 21:01; Status DC Potassium Chloride 100 ml @ 100 mls/hr Q1H IV Last administered on 07/19/16 01:32; Start 07/18/16 at 19:30; Stop 07/19/16 at 01:29; Status DC Hydroxychloroquine Sulfate (Plaquenil) 200 mg BID PO Last administered on 21:07; Start 07/18/16 at 21:00; Stop 07/27/16 at 07:35; Status DC Atorvastatin Calcium (Lipitor) 20 mg HS PO Last administered on 07/26/16 21:07 ; Start 07/19/16 at 21:00 Cetirizine HCl (Zyrtec) 10 mg DAILY PO Last administered on 07/27/16 08:40; Start 07/19/16 at 09:00 Fluticasone Propionate (Flonase) 2 spray DAILY NS Last administered on 09:15; Start 07/19/16 at 09:00 Folic Acid (Folic Acid) 2 mg DAILY PO Last administered on 07/27/16 08:40; Start 07/19/16 at 09:00 Furosemide (Lasix) 40 mg DAILY PO Last administered on 07/25/16 08:42; Start 07/19/16 at 09:00 Levothyroxine Sodium (Synthroid) 112 mcg DAILY07 PO Last administered on 06:24; Start 07/19/16 at 07:00 Metoprolol Succinate (Toprol Xl) 12.5 mg DAILY PO Last administered on 08:44; Start 07/19/16 at 09:00 Prednisone (Prednisone) 1 mg QID PO Last administered on 07/25/16 20:28; Start 07/19/16 at 09:00; Stop 07/26/16 at 11:03; Status DC Sulfasalazine (Azulfidine) 1,000 mg BID PO Last administered on 07/27/16 08:41 ; Start 07/19/16 at 09:00 Non-Formulary Medication 2 puff QID INH ; Start 07/19/16 at 09:00; Status UNV Salsalate (Salsalate) 750 mg BID PO Last administered on 07/27/16 08:40; Start 07/19/16 at 09:00 Leflunomide (Arava) 20 mg DAILY PO Last administered on 07/25/16 08:43; Start 07/19/16 at 09:00; Stop 07/27/16 at 07:35; Status DC Albuterol Sulfate (Ventolin Neb Soln) 2.5 mg RTQID NEB ; Start 07/19/16 at 08:00 ; Stop 07/19/16 at 09:38; Status DC Sodium Bicarbonate 50 meq 1X ONCE IV Last administered on 07/19/16 11:38; Start 07/19/16 at 10:30; Stop 07/19/16 at 10:31; Status DC Potassium Chloride (Klor-Con) 40 meq 1X ONCE PO Last administered on 11:20; Start 07/20/16 at 11:00; Stop 07/20/16 at 11:01; Status DC Oxycodone/ Acetaminophen (Percocet 5/325) 1 tab PRN BID PRN PO PAIN Last administered on 07/25/16 21:27; Start 07/20/16 at 11:15 Lorazepam (Ativan) 1 mg PRN Q6HRS PRN PO ANXIETY / AGITATION Last administered on 07/25/16 20:30; Start 07/21/16 at 19:45 Budesonide (Pulmicort) 0.5 mg RTBID NEB Last administered on 07/27/16 07:36; Start 07/22/16 at 11:00 Furosemide (Lasix) 20 mg 1X ONCE IVP Last administered on 07/22/16 14:47; Start 07/22/16 at 14:30; Stop 07/22/16 at 14:31; Status DC Info 1 ea CONT PRN PRN MC PER PROTOCOL; Start 07/22/16 at 14:15 Potassium Chloride (KCl Oral Soln) 40 meq 1X ONCE FT Last administered on 07/22 14:45; Start 07/22/16 at 15:00; Stop 07/22/16 at 15:01; Status DC Potassium Chloride (KCl Oral Soln) 40 meq 1X ONCE FT Last administered on 07/22 18:36; Start 07/22/16 at 18:30; Stop 07/22/16 at 18:31; Status DC Prochlorperazine Edisylate (Compazine) 5 mg PRN Q6HRS PRN IV NAUSEA Last administered on 07/25/16 18:26; Start 07/22/16 at 18:30 Levofloxacin (Levaquin) 500 mg DAILY06 PO Last administered on 07/26/16 05:14 ; Start 07/26/16 at 06:00; Stop 07/26/16 at 11:07; Status DC Norepinephrine Bitartrate 250 ml @ 0 mls/hr CONT PRN IV SEE I/O RECORD Last administered on 07/27/16 07:28; Start 07/26/16 at 09:15 Phenylephrine HCl 80 mg/Sodium Chloride 258 ml @ 0 mls/hr CONT PRN IV SEE I/O RECORD Last administered on 07/27/16 07:27; Start 07/26/16 at 09:45 Vancomycin HCl (Vanco Per Pharmacy) 1 each PRN DAILY PRN MC SEE COMMENTS Last administered on 07/26/16 13:55; Start 07/26/16 at 09:45; Stop 07/27/16 at 07:20 ; Status DC Fentanyl Citrate (Fentanyl 2ml Vial) 100 mcg STK-MED ONCE .ROUTE ; Start at 09:40; Stop 07/26/16 at 09:41; Status DC Vancomycin HCl 1.25 gm/Sodium Chloride 250 ml @ 167 mls/hr ONCE ONCE IV Last administered on 07/26/16 13:46; Start 07/26/16 at 09:45; Stop 07/27/16 at 07:20 ; Status DC Midazolam HCl 100 ml @ As Directed STK-MED ONCE IV ; Start 07/26/16 at 10:45; Stop 07/26/16 at 10:46; Status DC Hydrocortisone Sodium Succinate (Solu-CORTEF) 100 mg Q8HRS IV Last administered on 07/27/16 06:24; Start 07/26/16 at 14:00 Levofloxacin/ Dextrose 100 ml @ 100 mls/hr Q24H IV ; Start 07/27/16 at 06:00; Stop 07/27/16 at 06:00; Status DC Cefepime HCl 1 gm/ Sodium Chloride 50 ml @ 100 mls/hr Q8HRS IV Last administered on 07/27/16 06:24; Start 07/26/16 at 14:00; Stop 07/27/16 at 07:20 ; Status DC Metronidazole 100 ml @ 100 mls/hr Q8H IV Last administered on 07/27/16 05:14 ; Start 07/26/16 at 13:00 Micafungin Sodium 100 mg/Dextrose 100 ml @ 100 mls/hr Q24H IV Last administered on 07/26/16 14:29; Start 07/26/16 at 12:00 Lidocaine/Sodium Bicarbonate (Buffered Lidocaine 1%) 20 ml STK-MED ONCE IJ ; Start 07/26/16 at 12:46; Stop 07/26/16 at 12:47; Status DC Heparin Sodium/ Sodium Chloride 500 ml @ As Directed STK-MED ONCE .ROUTE ; Start 07/26/16 at 12:46; Stop 07/26/16 at 12:47; Status DC Lidocaine/Sodium Bicarbonate (Buffered Lidocaine 1%) 3 ml 1X ONCE IJ Last administered on 07/26/16 13:24; Start 07/26/16 at 13:00; Stop 07/26/16 at 13:01 ; Status DC Heparin Sodium/ Sodium Chloride 60 unit 1X ONCE IV Last administered on 13:24; Start 07/26/16 at 13:00; Stop 07/26/16 at 13:01; Status DC Vancomycin HCl 750 mg/Sodium Chloride 250 ml @ 250 mls/hr Q24H IV ; Start 07/27 at 14:00 Vancomycin HCl 1 each 1X ONCE MC ; Start 07/28/16 at 13:30; Stop 07/28/16 at 13 :31 Dextrose (Dextrose 50%-Water Syringe) 25 gm STK-MED ONCE IV ; Start 07/26/16 at 15:16; Stop 07/26/16 at 15:17; Status DC Acetaminophen (Tylenol) 325 mg PRN Q6HRS PRN [place] MILD PAIN / TEMP Last administered on 07/26/16 23:50; Start 07/26/16 at 16:45 Dextrose 1,000 ml @ 60 mls/hr [id number] IV Last administered on 07/26/16 19:49 ; Start 07/26/16 at 19:30 Linezolid 300 ml @ 300 mls/hr Q12HR IV Last administered on 07/27/16 08:41; Start 07/27/16 at 08:00 Meropenem 500 mg/ Sodium Chloride 50 ml @ 100 mls/hr Q8HRS IV Last administered on 07/27/16 08:41; Start 07/27/16 at 08:00 Enoxaparin Sodium (Lovenox 30mg Syringe) 30 mg Q24H SQ ; Start 07/27/16 at 14:00 Chlorhexidine Gluconate (Peridex) 15 ml BID MM Last administered on 07/27/16 08:41; Start 07/27/16 at 09:00 Multi-Ingred Cream/Lotion/Oil/ Oint (Artificial Tears Eye Oint) 1 nixon PRN Q1HR PRN OU DRY EYE Last administered on 07/27/16 09:15; Start 07/27/16 at 07:45 Sodium Chloride 1,000 ml @ 1,000 mls/hr 1X ONCE IV Last administered on 09:00; Start 07/26/16 at 09:00; Stop 07/27/16 at 08:26; Status DC Sodium Chloride 1,000 ml @ 1,000 mls/hr 1X ONCE IV Last administered on 09:00; Start 07/26/16 at 09:00; Stop 07/27/16 at 08:26; Status DC Dextrose (Dextrose 50%-Water Syringe) 25 gm STK-MED ONCE IV ; Start 07/26/16 at 12:00; Stop 07/27/16 at 09:00; Status DC Fentanyl Citrate (Fentanyl 2ml Vial) 100 mcg STK-MED ONCE .ROUTE ; Start at 12:00; Stop 07/27/16 at 09:00; Status DC Succinylcholine Chloride (Ane[place]ine) 200 mg STK-MED ONCE .ROUTE ; Start 07/26/16 at 09:30; Stop 07/27/16 at 09:05; Status DC Active Scripts Active Reported Lipitor (Atorvastatin Calcium) 20 Mg Tablet 20 Mg PO HS Zyrtec (Cetirizine Hcl) 10 Mg Tablet 1 Tab PO DAILY Fluticasone Propionate Nasal [place] (Fluticasone Propionate) 16 Gm [place].susp 2 [place] NS DAILY Lasix (Furosemide) 40 Mg Tablet 1 Tab PO DAILY Folic Acid 1 Mg Tablet 2 Tab PO DAILY Ventolin Hfa Inhaler (Albuterol Sulfate) 18 Gm Hfa.aer.ad 2 Puff INH QID Leflunomide 20 Mg Tablet 20 Mg PO DAILY Metoprolol Succinate ( Xl ) (Metoprolol Succinate) 25 Mg Tab.er.24h 0.5 Tab PO DAILY Levothyroxine Sodium 112 Mcg Tablet 112 Mcg PO DAILY Diflunisal 500 Mg Tablet 500 Mg PO BID Sulfasalazine 500 Mg Tablet 1,000 Mg PO BID Prednisone 1 Mg Tablet 1 Mg PO QID Vitals/I & O Vital Sign - Last 24 Hours 07/26/16 07/26/16 07/26/16 07/26/16 10:53 11:00 12:00 13:00 Temp 101.3 101.3 Pulse 115 119 119 Resp 17 35 18 B/P (MAP) 96/62 (73) 96/62 (73) 198/160 (173) Pulse Ox 98 97 100 100 O2 Delivery Ventilator Ventilator Ventilator Ventilator 07/26/16 07/26/16 07/26/16 07/26/16 13:01 14:00 15:00 15:36 Pulse 117 117 Resp 18 17 B/P (MAP) 70/62 (65) 118/64 (82) Pulse Ox 98 100 100 100 O2 Delivery Ventilator Ventilator Ventilator Ventilator 07/26/16 07/26/16 07/26/16 07/26/16 16:00 16:57 17:00 18:00 Temp 102.8 102.8 Pulse 116 113 113 Resp 15 16 15 B/P (MAP) 99/61 (74) 79/59 (66) 87/52 (64) Pulse Ox 100 100 100 100 O2 Delivery Ventilator Ventilator Ventilator Ventilator 5/17/17 5/17/17 5/17/17 5/17/17 19:00 19:34 20:00 20:00 Temp 101.3 101.3 Pulse 112 117 Resp 15 16 B/P (MAP) 114/70 (85) 98/62 (74) Pulse Ox 100 100 100 O2 Delivery Ventilator Ventilator Mechanical Ventilator Ventilator 07/26/16 07/26/16 07/26/16 07/26/16 21:00 22:00 22:20 23:00 Pulse 115 125 114 Resp 16 16 16 B/P (MAP) 98/62 (74) 106/67 (80) 110/66 (81) Pulse Ox 100 100 100 100 O2 Delivery Ventilator Ventilator Ventilator Ventilator 07/27/16 07/27/1607/27/07/27/16 00:00 00:00 00:45 00:55 Temp 103.0 103.0 Pulse 111 Resp 16 B/P (MAP) 109/57 (74) 137/85 (102) Pulse Ox 100 99 O2 Delivery Mechanical Ventilator Ventilator Ventilator 07/27/16 07/27/16 07/27/16 07/27/16 01:00 02:00 02:15 02:29 Temp 100.0 100.0 Pulse 108 113 Resp 16 16 B/P (MAP) 123/84 (97) 44/22 (29) 166/86 (112) Pulse Ox 99 100 O2 Delivery Ventilator Ventilator 07/27/16 07/27/16 07/27/16 07/27/16 02:45 03:00 03:15 03:17 Pulse 109 Resp 16 B/P (MAP) 152/95 (114) 190/154 (166) Pulse Ox 100 99 O2 Delivery Ventilator Ventilator 07/27/16 07/27/16 07/27/16 07/27/16 03:45 03:53 04:00 04:15 Temp 99.8 99.8 Pulse 114 Resp 16 B/P (MAP) 144/78 (100) 166/80 (108) 156/77 (103) Pulse Ox 100 O2 Delivery Mechanical Ventilator Ventilator 07/27/16 07/27/16 07/27/16 07/27/16 05:00 05:15 05:46 06:00 Pulse 110 110 Resp 16 16 B/P (MAP) 123/78 (93) 113/78 (90) 126/72 (90) Pulse Ox 100 100 100 O2 Delivery Ventilator Ventilator Ventilator 5/18/17 5/07/27/16 07/27/16 07:00 07:37 08:00 08:00 Temp 100.7 100.7 Pulse 120 117 Resp 16 16 B/P (MAP) 146/88 (107) /100 Pulse Ox 100 100 100 O2 Delivery Ventilator Ventilator Ventilator Mechanical Ventilator 07/27/16 07/27/16 08:07 09:00 Pulse 118 Resp 16 B/P (MAP) 151/107 (122) Pulse Ox 99 100 O2 Delivery Ventilator Ventilator Intake and Output 07/26/16 07/26/16 07/27/16 15:00 23:00 07:00 Intake Total 2000 ml 3588.6 ml 1537 ml Output Total 71 ml 77 ml Balance 2000 ml 3517.6 ml 1460 ml CATHERINE CABRAL MD July 27, 2016 10:26
[2016-07-27] MEDS ORDERED: IV NORMAL SALINE 1000ML BAG 1,000 ML IV SCH ×2 (10:45→12:30)
[2016-07-27] MEDS ORDERED: IV NORMAL SALINE 1000ML BAG 1,000 ML IV ONE (11:15)
[2016-07-27] MEDS ORDERED: PANTOPRAZOLE IV PUSH 40 MG VIAL. IVP SCH (11:30)
--- NOTE | 2016-07-27 12:36 | PDOC2 ---
GI CONSULT Reason For Consult: Elevated LFTs, ?hematemesis HPI: HPI: 60 y/o female admitted w/ resp failure, then found unresponsive on BiPAP, now intubated (off sedation) in ICU, made DNR yesterday by family. GI consulted re : elevated LFTs and coffee-ground material in NG tube, about 100cc per RN. Tube currently not to suction after given meds this morning. Plans to start tube feeds today. Started on IV PPI. LFTs as below, AST >4000, ALT >91046, bili 1.4. Lactic acid 5, WBC 19.7. Hgb stable in 9s, some slow rise in BUN/ Cr. Febrile, on IV atbx per ID. Last office visit w/ us in 02/2015. EGD and colonoscopy in 2004 showed gastric ulcer and hemorrhoids. Healed ulcer documented on repeat EGD. PMH: PMH: A Fib, CHF, HLD, COPD, pneumonia, PUD, GERD, hypothyroidism, OA, RA (previously on methotrexate, sulfasalazine, Plaquenil), osteoporosis, breast cancer, vulvar cancer s/p excision, cholecystectomy, right mastectomy, hip and knee replacement , neck surgery FH: Family History: Cancer (breast), DM, Hypertension Social History: Smoke: No ALCOHOL: none Drugs: None ROS: Unobtainable. Vitals: Vitals: Vital Signs Date Time Temp Pulse Resp B/P (MAP) Pulse Ox O2 Delivery O2 Flow Rate FiO2 07/27/16 10:37 100 Ventilator 07/27/16 10:00 115 16 /104 07/27/16 07:00 100.7 100.7 Labs: Labs: Laboratory Tests Test 07/26/16 14:15 07/26/16 15:43 07/26/16 18:38 07/26/16 19:25 Urine Collection Type Unknown Urine Color Dk yellow Urine Clarity Clear Urine pH 5.5 Urine Specific [place] 1.020 Urine Protein 100 mg/dL (NEG-TRACE) Urine Glucose (UA) Negative mg/dL (NEG) Urine Ketones (Stick) Negative mg/dL (NEG) Urine Blood Negative (NEG) Urine Nitrite Negative (NEG) Urine Bilirubin Small (NEG) Urine Urobilinogen Dipstick 0.2 mg/dL (0.2 mg/dL) Urine Leukocyte Esterase Small (NEG) Urine RBC 0 /HPF (0-2) Urine WBC Occ /HPF (0-4) Urine Squamous Epithelial Cells Many /LPF Urine Renal Epithelial Cells Few /LPF Urine Bacteria Few /HPF (0-FEW) Urine Hyaline Casts Many /HPF Sodium Level 140 mmol/L (136-145) 137 mmol/L (136-145) Potassium Level 3.8 mmol/L (3.5-5.1) 3.9 mmol/L (3.5-5.1) Chloride Level 94 mmol/L (98-107) 93 mmol/L (98-107) Carbon Dioxide Level 39 mmol/L (21-32) 34 mmol/L (21-32) Anion Gap 7 (6-14) 10 (6-14) Blood Urea Nitrogen 29 mg/dL (7-20) 32 mg/dL (7-20) Creatinine 1.9 mg/dL (0.6-1.0) 2.1 mg/dL (0.6-1.0) Estimated GFR (Cockcroft-Gault) 26.9 23.9 BUN/Creatinine Ratio 15 (6-20) 15 (6-20) Glucose Level 32 mg/dL (70-99) 86 mg/dL (70-99) Lactic Acid Level 7.6 mmol/L (0.4-2.0) 7.5 mmol/L (0.4-2.0) Calcium Level 7.9 mg/dL (8.5-10.1) 7.5 mg/dL (8.5-10.1) Total Bilirubin 0.9 mg/dL (0.2-1.0) 0.9 mg/dL (0.2-1.0) Aspartate Amino Transf (AST/SGOT) 74955 U/L (15-37) 58235 U/L (15-37) Alanine Aminotransferase (ALT/SGPT) 3939 U/L (14-59) 5013 U/L (14-59) Alkaline Phosphatase 80 U/L (46-116) 81 U/L (46-116) Total Protein 5.9 g/dL (6.4-8.2) 5.2 g/dL (6.4-8.2) Albumin 2.1 g/dL (3.4-5.0) 2.1 g/dL (3.4-5.0) Albumin/Globulin Ratio 0.6 (1.0-1.7) 0.7 (1.0-1.7) Procalcitonin 2.75 ng/mL (0.00-0.10) Glucose (Fingerstick) 67 mg/dL (70-99) 66 mg/dL (70-99) Test 07/26/16 21:36 07/26/16 22:31 07/26/16 23:40 07/27/16 00:34 Glucose (Fingerstick) 59 mg/dL (70-99) 89 mg/dL (70-99) 60 mg/dL (70-99) 87 mg/dL (70-99) Test 07/27/16 02:40 07/27/16 05:40 07/27/16 05:41 07/27/16 07:45 Glucose (Fingerstick) 94 mg/dL (70-99) 144 mg/dL (70-99) White Blood Count 19.7 x10^3/uL (4.0-11.0) Red Blood Count 2.84 x10^6/uL (3.50-5.40) Hemoglobin 9.1 g/dL (12.0-15.5) Hematocrit 29.1 % (36.0-47.0) Mean Corpuscular Volume 102 fL (79-100) Mean Corpuscular Hemoglobin 32 pg (25-35) Mean Corpuscular Hemoglobin Concent 31 g/dL (31-37) Red Cell Distribution Width 20.2 % (11.5-14.5) Platelet Count 429 x10^3/uL (140-400) Neutrophils (%) (Auto) 92 % (31-73) Lymphocytes (%) (Auto) 2 % (24-48) Monocytes (%) (Auto) 5 % (0-9) Eosinophils (%) (Auto) 0 % (0-3) Basophils (%) (Auto) 1 % (0-3) Neutrophils # (Auto) 18.1 x10^3uL (1.8-7.7) Lymphocytes # (Auto) 0.4 x10^3/uL (1.0-4.8) Monocytes # (Auto) 1.0 x10^3/uL (0.0-1.1) Eosinophils # (Auto) 0.1 x10^3/uL (0.0-0.7) Basophils # (Auto) 0.1 x10^3/uL (0.0-0.2) Segmented Neutrophils % 73 % (35-66) Band Neutrophils % 21 % (0-9) Lymphocytes % 2 % (24-48) Monocytes % 4 % (0-10) Nucleated Red Blood Cells 11 Platelet Estimate Increased (ADEQUATE) Anisocytosis Mod Sodium Level 132 mmol/L (136-145) Potassium Level 3.7 mmol/L (3.5-5.1) Chloride Level 91 mmol/L (98-107) Carbon Dioxide Level 31 mmol/L (21-32) Anion Gap 10 (6-14) Blood Urea Nitrogen 38 mg/dL (7-20) Creatinine 2.6 mg/dL (0.6-1.0) Estimated GFR (Cockcroft-Gault) 18.7 BUN/Creatinine Ratio 15 (6-20) Glucose Level 146 mg/dL (70-99) Lactic Acid Level 5.0 mmol/L (0.4-2.0) Calcium Level 7.2 mg/dL (8.5-10.1) Total Bilirubin 1.4 mg/dL (0.2-1.0) Aspartate Amino Transf (AST/SGOT) 57091 U/L (15-37) Alanine Aminotransferase (ALT/SGPT) 4893 U/L (14-59) Alkaline Phosphatase 106 U/L (46-116) Creatine Kinase 2911 U/L (26-192) Total Protein 5.6 g/dL (6.4-8.2) Albumin 2.0 g/dL (3.4-5.0) Albumin/Globulin Ratio 0.6 (1.0-1.7) O2 Saturation 97 % (92-99) Arterial Blood pH 7.54 (7.35-7.45) Arterial Blood pCO2 at Patient Temp 39 mmHg (35-46) Arterial Blood pO2 at Patient Temp 101 mmHg (65-108) Arterial Blood HCO3 33 mmol/L (21-28) Arterial Blood Base Excess 9 mmol/L (-3-3) FiO2 35% Test 07/27/16 07:47 Glucose (Fingerstick) 149 mg/dL (70-99) Allergies: Coded Allergies: Penicillins (Verified Allergy, Intermediate, Hives, 12/04/13) morphine (Verified Allergy, Intermediate, 12/04/13) Medications: Current Medications Medications (Trade) Dose Ordered Sig/[place] Route PRN Reason Start Time Stop Time Status Last Admin Dose Admin Hydrocortisone Sodium Succinate (Solu-CORTEF) 100 mg Q8HRS IV 07/26/16 14:00 07/27/16 06:24 Cefepime HCl 1 gm/ Sodium Chloride 50 ml @ 100 mls/hr Q8HRS IV 07/26/16 14:00 07/27/16 07:20 DC 07/27/16 06:24 Metronidazole 100 ml @ 100 mls/hr Q8H IV 07/26/16 13:00 07/27/16 05:14 Lidocaine/Sodium Bicarbonate (Buffered Lidocaine 1%) 3 ml 1X ONCE IJ 07/26/16 13:00 07/26/16 13:01 DC 07/26/16 13:24 Heparin Sodium/ Sodium Chloride 60 unit 1X ONCE IV 07/26/16 13:00 07/26/16 13:01 DC 07/26/16 13:24 Acetaminophen (Tylenol) 325 mg PRN Q6HRS PRN [place] MILD PAIN / TEMP 07/26/16 16:45 07/26/16 23:50 Dextrose 1,000 ml @ 60 mls/hr [id number] IV 07/26/16 19:30 07/26/16 19:49 Linezolid 300 ml @ 300 mls/hr Q12HR IV 07/27/16 08:00 07/27/16 08:41 Meropenem 500 mg/ Sodium Chloride 50 ml @ 100 mls/hr Q8HRS IV 07/27/16 08:00 07/27/16 08:41 Chlorhexidine Gluconate (Peridex) 15 ml BID MM 07/27/16 09:00 07/27/16 08:41 Multi-Ingred Cream/Lotion/Oil/ Oint (Artificial Tears Eye Oint) 1 nixon PRN Q1HR PRN OU DRY EYE 07/27/16 07:45 07/27/16 09:15 Pantoprazole Sodium (Protonix Vial) 40 mg DAILYAC IVP 07/27/16 11:30 07/27/16 11:04 Sodium Chloride 1,000 ml @ 0 mls/hr 1X ONCE IV 07/27/16 11:15 07/27/16 11:16 DC 07/27/16 11:08 Imaging: Imaging: CXR 07/27/16 The tip of the ET tube lies 1 cm above the delonte. An NG tube extends into the distal aspect of the stomach or the duodenum, incompletely visualized on this exam. A right jugular central venous catheter extends to the level of the atriocaval junction. The heart size is unchanged. The pulmonary vascularity is normal. No pulmonary infiltrates are seen. No significant pleural fluid is evident. IMPRESSION: 1. Tube positions as described above. 2. No acute cardiopulmonary abnormality is detected. PE: GEN: intubated HEENT: Atraumatic LUNGS: clear/vent HEART: tachycardic ABD: soft, BS+ EXTREMITY: No edema NEURO/PSYCH: unresponsive A/P: A/P: Resp failure, shock, TRAY, lactic acidosis -intubated on pressors, unresponsive, on IV atbx ?coffee-ground emesis ~100cc noted in NG, started on IV PPI, Hgb stable Elevated LFTs -h/o RA at one time on methotrexate -- Related to shock. Continue IV PPI. Check abd US. ZACH MULLIGAN July 27, 2016 12:36
[2016-07-27] MEDS: MICAFUNGIN 100 MG in IV DEXTROSE 5% 100 ML IV SCH (12:37)
[2016-07-27] MEDS ORDERED: ENOXAPARIN 30 MG/0.3 ML SYRINGE. SQ SCH (14:00)
[2016-07-27] MEDS ORDERED: VANCOMYCIN 750 MG in IV NORMAL SALINE 250ML 250 ML IV SCH (14:00)
--- NOTE | 2016-07-27 15:51 | RAD ---
Examination: Ultrasound abdomen complete History: History of elevated liver function tests Comparison: None available Findings: The visualized IVC, aorta are patent The evaluation of the pancreas is limited due to bowel gas. The right lobe of the liver measures 14.7 cm. The echogenicity the liver grossly appears unremarkable. The gallbladder is not identified likely prior cholecystectomy. The common bile duct measures 8.4 mm in transverse dimension. The spleen measures 7.7 cm in length. The right kidney measures 9.4 x 4.9 x 4.7 cm. The left kidney measures 10.4 x 4.5 x 6.2 cm. Impression: 1. The gallbladder is not identified likely prior cholecystectomy changes. Otherwise unremarkable visualized exam.
[2016-07-27] MEDS ORDERED: fentaNYL PF VIAL 100 MCG/2 ML VIAL IV PRN (17:30)
[2016-07-28] MEDS ORDERED: MIDAZOLAM HCL/PF 5 MG/5 ML VIAL. ONE (10:00)
[2016-07-28] MEDS ORDERED: EPINEPHrine SYRINGE 1 MG/10 ML SYRINGE ONE (10:00)
[2016-07-28] MEDS ORDERED: MAGNESIUM SULFATE PREMIX 1 GM/100 ML BAG. IV ONE (10:00)
== END 2016-07-27 20:35 | disposition expired | DRG 871 ==
LOC: ER 10:21 → 1 WEST ICU 11:55 → 5 NORTH 07-21 17:11 → 1 WEST ICU 07-26 09:54
PROVIDERS: ADMIT Internal Medicine; ATTEND Internal Medicine
PROC: 5A1945Z Respiratory Ventilation, 24-96 Consecutive Hours (ICD-10-PCS; principal; 2016-07-26)
PROC: 0BH17EZ Insertion of Endotracheal Airway into Trachea, Via Natural or Artificial Opening (ICD-10-PCS; 2016-07-26)
PROC: 05HM33Z Insertion of Infusion Device into Right Internal Jugular Vein, Percutaneous Approach (ICD-10-PCS; 2016-07-26)
PROC: B543ZZA Ultrasonography of Right Jugular Veins, Guidance (ICD-10-PCS; 2016-07-26)
DX: A41.9 Sepsis, unspecified organism (principal); G92 Toxic encephalopathy; J96.21 Acute and chronic respiratory failure with hypoxia; J96.22 Acute and chronic respiratory failure with hypercapnia; K72.00 Acute and subacute hepatic failure without coma; R65.21 Severe sepsis with septic shock; J44.0 Chronic obstructive pulmonary disease with (acute) lower respiratory infection; J44.1 Chronic obstructive pulmonary disease with (acute) exacerbation; N17.9 Acute kidney failure, unspecified; J20.9 Acute bronchitis, unspecified; E03.9 Hypothyroidism, unspecified; E16.2 Hypoglycemia, unspecified; E78.5 Hyperlipidemia, unspecified; I11.0 Hypertensive heart disease with heart failure; I48.2 Chronic atrial fibrillation; I50.9 Heart failure, unspecified; K21.9 Gastro-esophageal reflux disease without esophagitis; M08.00 Unspecified juvenile rheumatoid arthritis of unspecified site; M81.0 Age-related osteoporosis without current pathological fracture; T50.905A Adverse effect of unspecified drugs, medicaments and biological substances, initial encounter; M19.90 Unspecified osteoarthritis, unspecified site; F41.9 Anxiety disorder, unspecified; F32.9 Major depressive disorder, single episode, unspecified; Z96.659 Presence of unspecified artificial knee joint; Z96.649 Presence of unspecified artificial hip joint; Z66 Do not resuscitate; Z79.52 Long term (current) use of systemic steroids; Z79.891 Long term (current) use of opiate analgesic; Z80.3 Family history of malignant neoplasm of breast; Z82.49 Family history of ischemic heart disease and other diseases of the circulatory system; Z83.3 Family history of diabetes mellitus; Z85.3 Personal history of malignant neoplasm of breast; Z87.11 Personal history of peptic ulcer disease; Z87.891 Personal history of nicotine dependence; Z88.0 Allergy status to penicillin; Z98.1 Arthrodesis status; Z99.81 Dependence on supplemental oxygen; Z88.5 Allergy status to narcotic agent; Z90.49 Acquired absence of other specified parts of digestive tract; Z90.10 Acquired absence of unspecified breast and nipple
CPT/HCPCS: 36415; 36556; 36600; 71010; 76700; 76937; 80048; 80053; 81001; 82550; 82553; 82805; 82947; 83605; 83735; 83880; 84145; 84443; 84484; 85007; 85027; 87040; 87070; 87086; 87205; 87641; 87804; 93005; 93306; 94002; 94003; 94250; 94640; 94660; 94760; 96374; 96375; C1892; C9113; J0171; J0330; J0692; J0780; J1650; J1720; J1956; J2020; J2185; J2248; J2250; J2930; J3010; J3370; J3475; J3480; J3490; J7030; J7042; J7050; J7512; J7620; 99291-25